=== PATIENT | male | born 1945 | race Caucasian/White ===

== ENCOUNTER 2016-08-04 18:37 | Emergency (ER) | payer MEDICARE, OTHER ==
--- NOTE | 2016-08-04 19:13 | ER Document Report ---
ED Medical Screen (RME) - General Stated Complaint: SHORTNESS OF BREATH,CONGESTION Mode of Arrival: Wheelchair Information source: Patient Notes: Patient presents to emergency department with cough and history of COPD. I greeted and performed a rapid initial assessment of this patient. Comprehensive ED assessment and evaluation of the patient, analysis of test results and completion of the medical decision making process will be conducted by additional ED providers. TRAVEL OUTSIDE OF THE [place] IN LAST 30 DAYS: No - Related Data Allergies/Adverse Reactions: No Known Allergies Allergy (Verified 05/01/16 18:06) Past Medical History - Past Medical History Cardiac Medical History: Reports: Hx Hypercholesterolemia, Hx Hypertension Pulmonary Medical History: Reports: Hx COPD Denies: Hx Tuberculosis Endocrine Medical History: Reports: Hx Diabetes Mellitus Type 2 GI Medical History: Reports: Hx Gastroesophageal Reflux Disease Psychiatric Medical History: Reports: Hx Depression Past Surgical History: Reports: Hx Orthopedic Surgery - RLE, right carpal tunnel , Hx Tonsillectomy - Immunizations Hx Diphtheria, Pertussis, Tetanus Vaccination: Yes - 2010 Physical Exam - Vital signs Vitals: Temp Pulse Resp BP Pulse Ox 97.8 F 85 17 154/98 H 99 08/04/16 18:49 08/04/16 18:49 08/04/16 18:49 08/04/16 18:49 08/04/16 18:49 Course - Vital Signs Vital signs: Temp Pulse Resp BP Pulse Ox 97.8 F 85 17 154/98 H 99 08/04/16 18:49 08/04/16 18:49 08/04/16 18:49 08/04/16 18:49 08/04/16 18:49
[2016-08-04 20:42] LABS: ABSOLUTE EOSINOPHILS # (AUTO) 0.1 10^3/uL (0.0-0.6); ABSOLUTE LYMPHOCYTES (AUTO) 1.7 10^3/uL (0.5-4.7); ABSOLUTE MONOCYTES (AUTO) 0.8 10^3/uL (0.1-1.4); ABSOLUTE NEUT (AUTO) 5.9 10^3/uL (1.7-8.2); BASOPHILS % (AUTO) 0.5 % (0-2); HEMATOCRIT 47.5 % (37.9-51.0); HEMOGLOBIN 15.4 g/dL (13.5-17.0); HGB HCT DIFFERENCE -1.3; LYMPHOCYTES % (AUTO) 20.4 % (13-45); MEAN CORPUSCULAR HEMOGLOBIN 24.1 pg (27.0-33.4); MEAN CORPUSCULAR HGB CONC 32.5 g/dL (32.0-36.0); MEAN CORPUSCULAR VOLUME 74 fl (80-97); RED BLOOD COUNT 6.41 10^6/uL (4.35-5.55); RED CELL DISTRIBUTION WIDTH 16.9 % (11.5-14.0); SEGMENTED NEUTROPHILS % (AUTO) 69.1 % (42-78); WHITE BLOOD COUNT 8.6 10^3/uL (4.0-10.5)
[2016-08-04 20:59] LABS: ALANINE AMINOTRANSFERASE 33 U/L (21-72); ALBUMIN 4.3 g/dL (3.5-5.0); ALKALINE PHOSPHATASE 99 U/L (38-126); ANION GAP 14 (5-19); ASPARTATE AMINO TRANSFERASE 29 U/L (17-59); BILIRUBIN,TOTAL 0.8 mg/dL (0.2-1.3); BLOOD UREA NITROGEN 13 mg/dL (7-20); CALCIUM 9.6 mg/dL (8.4-10.2); CARBON DIOXIDE 24 mmol/L (22-30); CHLORIDE 99 mmol/L (98-107); CREATININE RESULT 1.08 mg/dL (0.52-1.25); GLUCOSE 115 mg/dL (75-110); POTASSIUM 4.1 mmol/L (3.6-5.0); SODIUM 136.6 mmol/L (137-145); TOTAL PROTEIN 7.3 g/dL (6.3-8.2)
--- NOTE | 2016-08-04 21:57 | ER Document Report ---
ED Respiratory Problem - General Chief Complaint: Cough Stated Complaint: SHORTNESS OF BREATH,CONGESTION Mode of Arrival: Wheelchair Information source: Patient TRAVEL OUTSIDE OF THE [place] IN LAST 30 DAYS: No - HPI Patient complains to provider of: Short of breath Onset: Other - 3 DAYS Duration: Continuous Quality of pain: Other - CHEST SORENESS W/ COUGH Severity: Moderate Context: Hx CHF, Hx COPD Short of Breath: Moderate Chest pain/discomfort: Center - SORENESS, ONLY W/ COUGH Cough: Productive Sputum amount: Moderate Sputum color: White Sputum consistency: Frothy At home treatment: denies: Bronchodilators, Inhaled steroids, Oral steroids Associated symptoms: Cough, Sore Throat, Other - SOMETIMES GAGS WITH FORCEFUL COUGH. denies: Bloody cough, Chest pain/discomfort, Fever Similar symptoms previously: Yes - NOT RECENT Recently seen / treated by doctor: No - Related Data Allergies/Adverse Reactions: No Known Allergies Allergy (Verified 08/04/16 19:14) Past Medical History - General Information source: Patient - Social History Smoking Status: Current Every Day Smoker Cigarette use (# per day): Yes - 1 pk/d Chew tobacco use (# tins/day): No Smoking Education Provided: Yes - 1 MINUTE Frequency of alcohol use: Occasional Drug Abuse: None Lives with: Alone Family History: Reviewed & Not Pertinent Patient has suicidal ideation: No Patient has homicidal ideation: No - Past Medical History Cardiac Medical History: Reports: Hx Hypercholesterolemia, Hx Hypertension Pulmonary Medical History: Reports: Hx COPD Denies: Hx Tuberculosis Endocrine Medical History: Reports: Hx Diabetes Mellitus Type 2 Renal/ Medical History: Reports: None. Denies: Hx Peritoneal Dialysis Malignancy Medical History: Reports None GI Medical History: Reports: Hx Gastroesophageal Reflux Disease Musculoskeltal Medical History: Reports None Psychiatric Medical History: Reports: Hx Depression Past Surgical History: Reports: Hx Orthopedic Surgery - RLE, right carpal tunnel , Hx Tonsillectomy - Immunizations Hx Diphtheria, Pertussis, Tetanus Vaccination: Yes - 2010 Hx Pneumococcal Vaccination: 07/23/12 Review of Systems - Review of Systems Constitutional: No symptoms reported. denies: Chills, Fever EENT: No symptoms reported Cardiovascular: No symptoms reported Respiratory: See HPI Gastrointestinal: No symptoms reported Musculoskeletal: No symptoms reported Skin: No symptoms reported Neurological/Psychological: No symptoms reported Physical Exam - Vital signs Vitals: Temp Pulse Resp BP Pulse Ox 97.8 F 85 17 154/98 H 99 08/04/16 18:49 08/04/16 18:49 08/04/16 18:49 08/04/16 18:49 08/04/16 18:49 Interpretation: Hypertensive. No: Tachycardic, Hypoxic, Tachypneic, Febrile - General General appearance: Appears well, Alert In distress: None - HEENT Head: Normocephalic Eyes: Normal Conjunctiva: Normal Ears: Normal Nasal: Normal Mouth/Lips: Normal Mucous membranes: Normal Pharynx: Erythema - MID, SMOKER Neck: Normal - Respiratory Respiratory status: No respiratory distress Breath sounds: Normal, Productive cough. No: Rales, Rhonchi, Wheezing - Cardiovascular Rhythm: Regular Heart sounds: Normal auscultation Murmur: No - Abdominal Inspection: Normal - Back Back: Normal - Extremities General upper extremity: Normal inspection General lower extremity: Normal inspection - Neurological Neuro grossly intact: Yes Cognition: Normal Orientation: AAOx4 - Psychological Associated symptoms: Normal affect, Normal mood - Skin Skin Temperature: Warm Skin Moisture: Dry Skin Color: Normal Skin Turgor: Elastic Course - Vital Signs Vital signs: Temp Pulse Resp BP Pulse Ox 97.8 F 85 17 154/98 H 99 08/04/16 18:49 08/04/16 18:49 08/04/16 18:49 08/04/16 18:49 08/04/16 18:49 - Laboratory Result Diagrams: 08/04/16 19:30 08/04/16 19:30 Laboratory results interpreted by me: 08/04/16 08/04/16 19:30 19:30 RBC 6.41 H MCV 74 L MCH 24.1 L RDW 16.9 H Sodium 136.6 L Glucose 115 H Discharge - Discharge Clinical Impression: Tobacco abuse Acute bronchitis Qualifiers: Bronchitis organism: unspecified organism Qualified Code(s): J20.9 - Acute bronchitis, unspecified COPD (chronic obstructive pulmonary disease) Qualifiers: COPD type: COPD with acute exacerbation Qualified Code(s): J44.1 - Chronic obstructive pulmonary disease with (acute) exacerbation Condition: Stable Disposition: HOME, SELF-CARE Instructions: Bronchitis ([facility]), Tessalon Perles ([facility]), Stop Smoking ([facility]) Additional Instructions: DRINK PLENTY OF FLUIDS. TAKE TESSALON DIRECTED TO HELP SUPPRESS YOUR COUGH. TAKE MUCINEX OR OTHER EXPECTORANT TO HELP LOOSEN SECRETIONS. STOP SMOKING. FOLLOW UP WITH DR. NULL NEXT WEEK, CALL SUNDAY FOR APPOINTMENT. RETURN TO E.R. IF YOU GET WORSE. Prescriptions: Benzonatate [Tessalon Perles 100 mg Capsule] 100 mg PO Q8HP PRN #30 capsule PRN Reason: Forms: Smoking Cessation Education Referrals: NIDHI NULL MD [Primary Care Provider] - Follow up as needed
[2016-08-04] MEDS ORDERED: BENZONATATE 100 MG CAPSULE PO ONE (22:16)
[2016-08-05 00:05] VITALS: BP 162/87
== END 2016-08-05 00:04 | disposition home or self-care (01) ==
LOC: ER 18:37
DX: J20.9 Acute bronchitis, unspecified (principal); J44.1 Chronic obstructive pulmonary disease with (acute) exacerbation; R05 Cough; R06.02 Shortness of breath; R09.81 Nasal congestion; F17.210 Nicotine dependence, cigarettes, uncomplicated
CPT/HCPCS: 99285; 36415; 85025; 80053; 83880; 71020; A9270

== ENCOUNTER 2016-09-15 14:52 | Emergency (ER) | payer MEDICARE, OTHER ==
--- NOTE | 2016-09-15 15:02 | ER Document Report ---
ED Medical Screen (RME) - General Stated Complaint: FLANK PAIN Mode of Arrival: Ambulatory Information source: Patient Notes: Patient complains of right flank pain for the past week. Patient states pain has been constant and gradually getting worse. No nausea or vomiting. No urinary symptoms. No fever. hx: Hypertension, diabetes, low testosterone, dyslipidemia I have greeted and performed a rapid initial assessment of this patient. A comprehensive ED assessment and evaluation of the patient, analysis of test results and completion of the medical decision making process will be conducted by additional ED providers. TRAVEL OUTSIDE OF THE [place] IN LAST 30 DAYS: No - Related Data Allergies/Adverse Reactions: No Known Allergies Allergy (Verified 09/15/16 15:01) Past Medical History - Past Medical History Cardiac Medical History: Reports: Hx Hypercholesterolemia, Hx Hypertension Pulmonary Medical History: Reports: Hx COPD Denies: Hx Tuberculosis Endocrine Medical History: Reports: Hx Diabetes Mellitus Type 2 Renal/ Medical History: Denies: Hx Peritoneal Dialysis GI Medical History: Reports: Hx Gastroesophageal Reflux Disease Psychiatric Medical History: Reports: Hx Depression Past Surgical History: Reports: Hx Orthopedic Surgery - RLE, right carpal tunnel , Hx Tonsillectomy - Immunizations Hx Diphtheria, Pertussis, Tetanus Vaccination: Yes - 2010 Physical Exam - Vital signs Vitals: Temp Pulse Resp BP Pulse Ox 97.9 F 76 16 127/73 H 92 09/15/16 14:57 09/15/16 14:57 09/15/16 14:57 09/15/16 14:57 09/15/16 14:57 - Back Back: CVA tenderness - Right flank Course - Vital Signs Vital signs: Temp Pulse Resp BP Pulse Ox 97.9 F 76 16 127/73 H 92 09/15/16 14:57 09/15/16 14:57 09/15/16 14:57 09/15/16 14:57 09/15/16 14:57
[2016-09-15 15:23] LABS: ABSOLUTE BASOPHILS # (AUTO) 0.1 10^3/uL (0.0-0.2); ABSOLUTE EOSINOPHILS # (AUTO) 0.1 10^3/uL (0.0-0.6); ABSOLUTE LYMPHOCYTES (AUTO) 2.6 10^3/uL (0.5-4.7); ABSOLUTE MONOCYTES (AUTO) 0.7 10^3/uL (0.1-1.4); ABSOLUTE NEUT (AUTO) 5.5 10^3/uL (1.7-8.2); BASOPHILS % (AUTO) 0.8 % (0-2); EOSINOPHILS % (AUTO) 0.7 % (0-6); HEMATOCRIT 43.4 % (37.9-51.0); HEMOGLOBIN 14.8 g/dL (13.5-17.0); MEAN CORPUSCULAR HEMOGLOBIN 25.8 pg (27.0-33.4); MEAN CORPUSCULAR VOLUME 76 fl (80-97); MONOCYTES % (AUTO) 7.4 % (3-13); RED BLOOD COUNT 5.72 10^6/uL (4.35-5.55); RED CELL DISTRIBUTION WIDTH 19.8 % (11.5-14.0); SEGMENTED NEUTROPHILS % (AUTO) 62.1 % (42-78); WHITE BLOOD COUNT 8.8 10^3/uL (4.0-10.5)
[2016-09-15 15:42] LABS: ALANINE AMINOTRANSFERASE 28 U/L (21-72); ALBUMIN 3.9 g/dL (3.5-5.0); ALKALINE PHOSPHATASE 68 U/L (38-126); ANION GAP 12 (5-19); ASPARTATE AMINO TRANSFERASE 23 U/L (17-59); BILIRUBIN,TOTAL 0.5 mg/dL (0.2-1.3); BLOOD UREA NITROGEN 8 mg/dL (7-20); CARBON DIOXIDE 25 mmol/L (22-30); CHLORIDE 98 mmol/L (98-107); CREATININE RESULT 1.08 mg/dL (0.52-1.25); GLUCOSE 144 mg/dL (75-110); LIPASE 96.9 U/L (23-300); POTASSIUM 3.9 mmol/L (3.6-5.0); SODIUM 134.7 mmol/L (137-145); TOTAL PROTEIN 6.7 g/dL (6.3-8.2)
[2016-09-15 15:55] LABS: APPEARANCE,URINE CLEAR; BILIRUBIN,URINE NEGATIVE (NEGATIVE); GLUCOSE, URINE 50 mg/dL (NEGATIVE)
[2016-09-15 15:56] LABS: KETONES,URINE NEGATIVE (NEGATIVE); LEUKOCYTE ESTERASE,URINE NEGATIVE (NEGATIVE); NITRITE,URINE NEGATIVE (NEGATIVE); PROTEIN,URINE NEGATIVE (NEGATIVE); URINE SPECIFIC GRAVITY 1.011; UROBILINOGEN,URINE NEGATIVE mg/dL (<2.0)
[2016-09-15 16:13] LABS: BACTERIA,URINE TRACE /HPF
--- NOTE | 2016-09-15 18:42 | ER Document Report ---
ED General - General Mode of Arrival: Ambulatory Information source: Patient TRAVEL OUTSIDE OF THE [place] IN LAST 30 DAYS: No - HPI Onset: Other - see HPI note Associated symptoms: denies: Diarrhea, Nausea, Vomiting <PATSY BLAKE - Last Filed: 09/15/16 19:39> <NOESAPNA ANN - Last Filed: 09/15/16 21:29> - General Chief Complaint: Flank Pain Stated Complaint: FLANK PAIN Notes: Patient is a 71 year old male presenting to the emergency department with complaints of right flank pain. Patient states he has discussed his pain with his urologist and states he has been drinking lots of fluids as he recommended. Patient states that he is having continued pain and he believes he has a kidney stone. Patient states he has been taking Aspirin for his pain. Patient has a history of chronic cough and chronic low back pain; patient's flank pain is new to the back pain. Patient denies any nausea, vomiting, diarrhea, or abdominal pain. Patient states these symptoms started at the end of last week. Patient has no known allergies. (PATSY BLAKE) - Related Data Allergies/Adverse Reactions: No Known Allergies Allergy (Verified 09/15/16 15:01) Past Medical History - General Information source: Patient - Social History Smoking Status: Current Every Day Smoker Chew tobacco use (# tins/day): No Frequency of alcohol use: Occasional Drug Abuse: None Family History: None Patient has suicidal ideation: No Patient has homicidal ideation: No - Past Medical History Cardiac Medical History: Reports: Hx Hypercholesterolemia, Hx Hypertension Pulmonary Medical History: Reports: Hx COPD Endocrine Medical History: Reports: Hx Diabetes Mellitus Type 2 GI Medical History: Reports: Hx Gastroesophageal Reflux Disease Psychiatric Medical History: Reports: Hx Depression Past Surgical History: Reports: Hx Orthopedic Surgery - RLE, right carpal tunnel , Hx Tonsillectomy - Immunizations Hx Diphtheria, Pertussis, Tetanus Vaccination: Yes - 2010 Hx Pneumococcal Vaccination: 07/23/12 <PATSY BLAKE - Last Filed: 09/15/16 19:39> Review of Systems - Review of Systems Constitutional: No symptoms reported EENT: No symptoms reported Cardiovascular: No symptoms reported Respiratory: No symptoms reported Gastrointestinal: No symptoms reported. denies: Abdominal pain, Diarrhea, Nausea, Vomiting Genitourinary: See HPI, Flank pain Male Genitourinary: No symptoms reported Musculoskeletal: See HPI, Back pain Skin: No symptoms reported Hematologic/Lymphatic: No symptoms reported Neurological/Psychological: No symptoms reported -: Yes All other systems reviewed and negative <PATSY BLAKE - Last Filed: 09/15/16 19:39> Physical Exam - Vital signs Interpretation: Normal - General General appearance: Appears well, Alert - HEENT Head: Normocephalic, Atraumatic Eyes: Normal Pupils: PERRL - Respiratory Respiratory status: No respiratory distress Chest status: Tender - Posterior and lateral right rib cage at the bottom Breath sounds: Normal Chest palpation: Normal - Cardiovascular Rhythm: Regular Heart sounds: Normal auscultation Murmur: No - Abdominal Inspection: Normal Distension: No distension Bowel sounds: Normal Tenderness: Nontender Organomegaly: No organomegaly - Back Back: Normal, Tender - Bottom of lower right rib cage posteriorly. No: CVA tenderness - Extremities General upper extremity: Normal inspection, Nontender, Normal color, Normal ROM , Normal temperature General lower extremity: Normal inspection, Nontender, Normal color, Normal ROM , Normal temperature, Normal weight bearing. No: Ann's sign - Neurological Neuro grossly intact: Yes Cognition: Normal Orientation: AAOx4 [place] Coma Scale Eye Opening: Spontaneous Cristobal Coma Scale Verbal: Oriented [place] Coma Scale Motor: Obeys Commands Cristobal Coma Scale Total: 15 Speech: Normal Motor strength normal: LUE, RUE, LLE, RLE Sensory: Normal - Psychological Associated symptoms: Normal affect, Normal mood - Skin Skin Temperature: Warm Skin Moisture: Dry Skin Color: Normal <SAPNA LIU - Last Filed: 09/15/16 21:29> - Vital signs Vitals: Temp Pulse Resp BP Pulse Ox 97.9 F 76 16 127/73 H 92 09/15/16 14:57 09/15/16 14:57 09/15/16 14:57 09/15/16 14:57 09/15/16 14:57 (PATSY BLAKE) (SAPNA LIU) Course - Laboratory Result Diagrams: 09/15/16 15:10 09/15/16 15:10 <PATSY BLAKE - Last Filed: 09/15/16 19:39> - Laboratory Result Diagrams: 09/15/16 15:10 09/15/16 15:10 - Diagnostic Test Radiology reviewed: Reports reviewed <SAPNA LIU - Last Filed: 09/15/16 21:29> - Re-evaluation Re-evalutation: 09/15/16 21:28 Patient with no acute findings on blood work or CT. Symptoms are reproducible. Patient feels well and would like to go home. He is currently eating a hamburger. Patient is to follow-up with his primary care doctor. No evidence for intra-abdominal pathology. Stable for discharge. Return if any worsening or concerning symptoms. Understands agrees with plan. Grateful for care. ( SAPNA LIU) - Vital Signs Vital signs: Temp Pulse Resp BP Pulse Ox 97.7 F 71 18 121/74 97 09/15/16 21:23 09/15/16 21:23 09/15/16 21:23 09/15/16 21:23 09/15/16 21:23 (PATSY BLAKE) (SAPNA LIU) - Laboratory Laboratory results interpreted by me: 09/15/16 09/15/16 09/15/16 15:10 15:10 15:10 RBC 5.72 H MCV 76 L MCH 25.8 L RDW 19.8 H Sodium 134.7 L Glucose 144 H Urine Glucose (UA) 50 H (PATSY BLAKE) (SAPNA LIU) Discharge <PATSY BLAKE - Last Filed: 09/15/16 19:39> <SAPNA LIU - Last Filed: 09/15/16 21:29> - Discharge Clinical Impression: Rib injury Condition: Stable Disposition: HOME, SELF-CARE Instructions: Rib Injuries and Fractures ([facility]) Prescriptions: Docusate Sodium [Colace 100 mg Capsule] 100 mg PO BID #60 capsule Oxycodone HCl/Acetaminophen [Percocet 5-325 mg Tablet] 1 - 2 tab PO Q4H PRN #15 tablet PRN Reason: Scribe Attestation: 09/15/16 21:29 I personally performed the services described in the documentation, reviewed and edited the documentation which was dictated to the scribe in my presence, and it accurately records my words and actions. (SAPNA LIU) Scribe Documentation - Scribe Written by Scribe:: Patsy Blake 09/15/16 19:48 acting as scribe for :: Noe <PATSY BLAKE - Last Filed: 09/15/16 19:39>
[2016-09-15] MEDS ORDERED: HYDROCODONE/ACETAMINOPHEN 5-325 MG 6 TAB/DSPK PO PRN (20:43)
[2016-09-15 21:24] VITALS: BP 121/74
== END 2016-09-15 21:24 | disposition home or self-care (01) ==
LOC: ER 14:52
DX: S29.9XXA Unspecified injury of thorax, initial encounter (principal); X58.XXXA Exposure to other specified factors, initial encounter; R10.9 Unspecified abdominal pain; I10 Essential (primary) hypertension; J44.9 Chronic obstructive pulmonary disease, unspecified; E11.9 Type 2 diabetes mellitus without complications; M54.9 Dorsalgia, unspecified; F17.200 Nicotine dependence, unspecified, uncomplicated
CPT/HCPCS: 99284; 36415; 83690; 85025; 80053; 81001; 71275; 74174; A9270

== ENCOUNTER 2016-09-23 09:39 | Emergency (ER) | payer MEDICARE, OTHER ==
--- NOTE | 2016-09-23 10:25 | ER Document Report ---
ED General - General Chief Complaint: Rib Pain Stated Complaint: RIB PAIN Mode of Arrival: Ambulatory Information source: Patient Notes: Patient reports having bronchitis 3 weeks ago but states his bronchitis symptoms are better. Patient does have a cough still but reports a history of COPD. Patient reports having right posterior rib and lateral side pain for the past 2 weeks. Patient was seen a week ago here for this complaint and had negative CT imaging studies done. Patient also reports seeing his urologist last week for this complaint. Patient currently denies any fever, nausea, vomiting, diarrhea, or urinary symptoms. Patient states that he thought the pain might be related to his kidneys but is uncertain. TRAVEL OUTSIDE OF THE [place] IN LAST 30 DAYS: No - HPI Onset: Other - 2 weeks Onset/Duration: Persistent Quality of pain: Achy Pain Level: 4 Associated symptoms: Nonproductive cough. denies: Chest pain, Productive cough , Diarrhea, Fever, Nausea, Vomiting, Shortness of breath Exacerbated by: Denies Relieved by: Denies Similar symptoms previously: No Recently seen / treated by doctor: Yes - Related Data Allergies/Adverse Reactions: No Known Allergies Allergy (Verified 09/15/16 15:01) Past Medical History - General Information source: Patient - Social History Smoking Status: Current Every Day Smoker Chew tobacco use (# tins/day): No Frequency of alcohol use: None Drug Abuse: None Occupation: none Lives with: Family Family History: None Patient has suicidal ideation: No Patient has homicidal ideation: No - Past Medical History Cardiac Medical History: Reports: Hx Hypercholesterolemia, Hx Hypertension Pulmonary Medical History: Reports: Hx COPD Denies: Hx Tuberculosis Endocrine Medical History: Reports: Hx Diabetes Mellitus Type 2 Renal/ Medical History: Denies: Hx Peritoneal Dialysis GI Medical History: Reports: Hx Gastroesophageal Reflux Disease Psychiatric Medical History: Reports: Hx Depression Past Surgical History: Reports: Hx Orthopedic Surgery - RLE, right carpal tunnel , Hx Tonsillectomy - Immunizations Hx Diphtheria, Pertussis, Tetanus Vaccination: Yes - 2010 Hx Pneumococcal Vaccination: 07/23/12 Review of Systems - Review of Systems Constitutional: No symptoms reported. denies: Fever, Recent illness EENT: No symptoms reported Cardiovascular: No symptoms reported. denies: Chest pain Respiratory: Cough. denies: Short of breath, Sputum Gastrointestinal: No symptoms reported. denies: Abdominal pain, Diarrhea, Nausea, Vomiting Genitourinary: Flank pain. denies: Dysuria, Hematuria Male Genitourinary: No symptoms reported Musculoskeletal: Back pain Skin: No symptoms reported Hematologic/Lymphatic: No symptoms reported Neurological/Psychological: No symptoms reported Physical Exam - Vital signs Vitals: Temp Pulse Resp BP Pulse Ox 98.3 F 80 18 134/84 H 97 09/23/16 09:44 09/23/16 09:44 09/23/16 09:44 09/23/16 09:44 09/23/16 09:44 - General General appearance: Appears well, Alert In distress: None Notes: Patient clinically sober - HEENT Head: Normocephalic, Atraumatic Eyes: Normal Nasal: Normal Mouth/Lips: Normal Mucous membranes: Normal Neck: Normal, Supple. No: Lymphadenopathy - Respiratory Respiratory status: No respiratory distress Chest status: Nontender Breath sounds: Nonproductive cough, Rhonchi - Right lower lobe Chest palpation: Normal - Cardiovascular Rhythm: Regular Heart sounds: S1 appreciated, S2 appreciated - Abdominal Inspection: Normal Distension: No distension Bowel sounds: Normal Tenderness: Tender - Mild right upper quadrant tenderness Organomegaly: No organomegaly - Back Back: Tender - Right posterior lower thoracic chest wall tenderness, CVA tenderness - Mild right. No: Vertebra tenderness - Extremities General upper extremity: Normal inspection, Normal strength General lower extremity: Normal inspection, Normal strength - Neurological Neuro grossly intact: Yes Cognition: Normal [place] Coma Scale Eye Opening: Spontaneous Cristobal Coma Scale Verbal: Oriented Cristobal Coma Scale Motor: Obeys Commands [place] Coma Scale Total: 15 - Psychological Associated symptoms: Normal affect, Normal mood - Skin Skin Temperature: Warm Skin Moisture: Dry Skin Color: Normal Course - Re-evaluation Re-evalutation: 09/23/16 10:[address] Grcae regarding patient presentation, agrees with plan for abdominal ultrasound imaging. 09/23/16 11:[address] Grace, recommends outpatient follow-up with surgeon agrees with discharge planning care. Discussed planning care with patient, discussed worsening signs or symptoms that patient should return immediately for. Patient advised not to drink alcohol while taking his pain medication. Patient presents with abdominal pain without signs of peritonitis or other life- threatening or serious etiology. Patient appears stable for discharge and has been instructed to return immediately if the symptoms worsen in any way. - Vital Signs Vital signs: Temp Pulse Resp BP Pulse Ox 98.3 F 80 18 134/84 H 97 09/23/16 09:44 09/23/16 09:44 09/23/16 09:44 09/23/16 09:44 09/23/16 09:44 - Laboratory Result Diagrams: 09/23/16 10:32 09/23/16 10:32 Laboratory results interpreted by me: 09/23/16 09/23/16 10:32 10:32 MCV 77 L MCH 25.5 L RDW 20.5 H Sodium 136.4 L Glucose 156 H Labs- Entire Visit 09/23/16 09/23/16 09/23/16 10:32 10:32 10:36 WBC 7.5 RBC 5.54 Hgb 14.1 Hct 42.6 MCV 77 L MCH 25.5 L MCHC 33.2 RDW 20.5 H Plt Count 208 Seg Neutrophils % 61.8 Lymphocytes % 27.2 Monocytes % 9.6 Eosinophils % 0.9 Basophils % 0.5 Absolute Neutrophils 4.6 Absolute Lymphocytes 2.0 Absolute Monocytes 0.7 Absolute Eosinophils 0.1 Absolute Basophils 0.0 Sodium 136.4 L Potassium 3.9 Chloride 99 Carbon Dioxide 25 Anion Gap 12 BUN 8 Creatinine 1.05 Est GFR ( Amer) > 60 Est GFR (Non-Af Amer) > 60 Glucose 156 H Calcium 9.3 Total Bilirubin 0.5 Direct Bilirubin 0.0 AST 24 ALT 24 Alkaline Phosphatase 60 Total Protein 6.9 Albumin 3.9 Lipase 68.7 Urine Color STRAW Urine Appearance CLEAR Urine pH 6.0 Ur Specific [place] 1.006 Urine Protein NEGATIVE Urine Glucose (UA) NEGATIVE Urine Ketones NEGATIVE Urine Blood NEGATIVE Urine Nitrite NEGATIVE Urine Bilirubin NEGATIVE Urine Urobilinogen NEGATIVE Ur Leukocyte Esterase NEGATIVE Urine WBC (Auto) 0 Urine Ascorbic Acid NEGATIVE Serum Alcohol 23 - Diagnostic Test Radiology reviewed: Reports reviewed - Reviewed patient's CT report from 2016 Discharge - Discharge Clinical Impression: Flank pain Cholelithiasis Qualifiers: Cholelithiasis location: gallbladder Cholecystitis presence: without cholecystitis Biliary obstruction: without biliary obstruction Qualified Code(s) : K80.20 - Calculus of gallbladder without cholecystitis without obstruction Condition: Stable Disposition: HOME, SELF-CARE Instructions: Oral Narcotic Medication ([facility]), Gallbladder Disease ([facility]), Flank Pain ([facility]) Additional Instructions: Return immediately for any new or worsening symptoms Followup with your primary care provider, call tomorrow to make a followup appointment You need to follow-up with a general surgeon for further management of your gallstones. Do not drink alcohol while you are taking your pain medication Do not drink alcohol and drive your automobile Prescriptions: Oxycodone HCl/Acetaminophen [Percocet 5-325 mg Tablet] 1 tab PO ASDIR PRN #15 tablet PRN Reason: Referrals: NIDHI NULL MD [Primary Care Provider] - Follow up as needed [facility] [Provider Group] - 09/25/16
[2016-09-23 10:59] LABS: ABSOLUTE EOSINOPHILS # (AUTO) 0.1 10^3/uL (0.0-0.6); ABSOLUTE MONOCYTES (AUTO) 0.7 10^3/uL (0.1-1.4); ABSOLUTE NEUT (AUTO) 4.6 10^3/uL (1.7-8.2); BASOPHILS % (AUTO) 0.5 % (0-2); EOSINOPHILS % (AUTO) 0.9 % (0-6); HEMATOCRIT 42.6 % (37.9-51.0); HEMOGLOBIN 14.1 g/dL (13.5-17.0); HGB HCT DIFFERENCE -0.3; LYMPHOCYTES % (AUTO) 27.2 % (13-45); MEAN CORPUSCULAR HEMOGLOBIN 25.5 pg (27.0-33.4); MEAN CORPUSCULAR HGB CONC 33.2 g/dL (32.0-36.0); MEAN CORPUSCULAR VOLUME 77 fl (80-97); MONOCYTES % (AUTO) 9.6 % (3-13); RED BLOOD COUNT 5.54 10^6/uL (4.35-5.55); RED CELL DISTRIBUTION WIDTH 20.5 % (11.5-14.0); SEGMENTED NEUTROPHILS % (AUTO) 61.8 % (42-78); WHITE BLOOD COUNT 7.5 10^3/uL (4.0-10.5)
[2016-09-23 11:03] LABS: APPEARANCE,URINE CLEAR; BILIRUBIN,URINE NEGATIVE (NEGATIVE); GLUCOSE, URINE NEGATIVE (NEGATIVE); KETONES,URINE NEGATIVE (NEGATIVE); LEUKOCYTE ESTERASE,URINE NEGATIVE (NEGATIVE); NITRITE,URINE NEGATIVE (NEGATIVE); PROTEIN,URINE NEGATIVE (NEGATIVE); URINE SPECIFIC GRAVITY 1.006; UROBILINOGEN,URINE NEGATIVE mg/dL (<2.0)
[2016-09-23 11:26] LABS: ALANINE AMINOTRANSFERASE 24 U/L (21-72); ALBUMIN 3.9 g/dL (3.5-5.0); ALCOHOL 23 mg/dL (NONE DETECTED); ALKALINE PHOSPHATASE 60 U/L (38-126); ANION GAP 12 (5-19); ASPARTATE AMINO TRANSFERASE 24 U/L (17-59); BILIRUBIN,TOTAL 0.5 mg/dL (0.2-1.3); BLOOD UREA NITROGEN 8 mg/dL (7-20); CALCIUM 9.3 mg/dL (8.4-10.2); CARBON DIOXIDE 25 mmol/L (22-30); CHLORIDE 99 mmol/L (98-107); CREATININE RESULT 1.05 mg/dL (0.52-1.25); GLUCOSE 156 mg/dL (75-110); LIPASE 68.7 U/L (23-300); POTASSIUM 3.9 mmol/L (3.6-5.0); SODIUM 136.4 mmol/L (137-145); TOTAL PROTEIN 6.9 g/dL (6.3-8.2)
[2016-09-23 12:24] VITALS: BP 131/74
== END 2016-09-23 12:10 | disposition home or self-care (01) ==
LOC: ER 09:39
DX: K80.20 Calculus of gallbladder without cholecystitis without obstruction (principal); R10.9 Unspecified abdominal pain; R07.81 Pleurodynia; R05 Cough; F17.210 Nicotine dependence, cigarettes, uncomplicated
CPT/HCPCS: 36415; 71020; 76705; 80053; 80307; 81001; 83690; 85025; 99284

== ENCOUNTER 2016-09-24 14:38 | Emergency (ER) | payer MEDICARE, OTHER ==
--- NOTE | 2016-09-24 14:51 | ER Document Report ---
ED Medical Screen (RME) - General Stated Complaint: STOMACH PAINS Time seen by provider: 14:47 Notes: Patient complains of severe right upper quadrant pain and right flank pain, and headache. Seen yesterday in emergency room, diagnosed with gallstones without evidence of cholecystitis. Denies nausea vomiting diarrhea. Denies fever I have greeted and performed a rapid initial assessment of this patient. A comprehensive ED assessment and evaluation of the patient, analysis of test results and completion of the medical decision making process will be conducted by additional ED providers. TRAVEL OUTSIDE OF THE [place] IN LAST 30 DAYS: No - Related Data Allergies/Adverse Reactions: No Known Allergies Allergy (Verified 09/24/16 14:48) Past Medical History - Past Medical History Cardiac Medical History: Reports: Hx Hypercholesterolemia, Hx Hypertension Pulmonary Medical History: Reports: Hx COPD Denies: Hx Tuberculosis Endocrine Medical History: Reports: Hx Diabetes Mellitus Type 2 Renal/ Medical History: Denies: Hx Peritoneal Dialysis GI Medical History: Reports: Hx Gastroesophageal Reflux Disease Psychiatric Medical History: Reports: Hx Depression Past Surgical History: Reports: Hx Orthopedic Surgery - RLE, right carpal tunnel , Hx Tonsillectomy - Immunizations Hx Diphtheria, Pertussis, Tetanus Vaccination: Yes - 2010 Physical Exam - Abdominal Inspection: Normal Bowel sounds: Normal Tenderness: Tender - pt tender RUQ
[2016-09-24 15:29] LABS: APPEARANCE,URINE CLEAR; BILIRUBIN,URINE NEGATIVE (NEGATIVE); GLUCOSE, URINE NEGATIVE (NEGATIVE); KETONES,URINE NEGATIVE (NEGATIVE); LEUKOCYTE ESTERASE,URINE NEGATIVE (NEGATIVE); NITRITE,URINE NEGATIVE (NEGATIVE); PROTEIN,URINE NEGATIVE (NEGATIVE); URINE SPECIFIC GRAVITY 1.003; UROBILINOGEN,URINE NEGATIVE mg/dL (<2.0)
[2016-09-24 17:23] LABS: ABSOLUTE BASOPHILS # (AUTO) 0.1 10^3/uL (0.0-0.2); ABSOLUTE EOSINOPHILS # (AUTO) 0.1 10^3/uL (0.0-0.6); ABSOLUTE LYMPHOCYTES (AUTO) 2.8 10^3/uL (0.5-4.7); ABSOLUTE MONOCYTES (AUTO) 1.1 10^3/uL (0.1-1.4); ABSOLUTE NEUT (AUTO) 5.5 10^3/uL (1.7-8.2); BASOPHILS % (AUTO) 0.7 % (0-2); EOSINOPHILS % (AUTO) 1.3 % (0-6); HEMATOCRIT 43.2 % (37.9-51.0); HEMOGLOBIN 14.5 g/dL (13.5-17.0); HGB HCT DIFFERENCE 0.3; LYMPHOCYTES % (AUTO) 29.3 % (13-45); MEAN CORPUSCULAR HEMOGLOBIN 25.7 pg (27.0-33.4); MEAN CORPUSCULAR HGB CONC 33.6 g/dL (32.0-36.0); MEAN CORPUSCULAR VOLUME 77 fl (80-97); MONOCYTES % (AUTO) 11.4 % (3-13); RED BLOOD COUNT 5.64 10^6/uL (4.35-5.55); RED CELL DISTRIBUTION WIDTH 19.9 % (11.5-14.0); SEGMENTED NEUTROPHILS % (AUTO) 57.3 % (42-78); WHITE BLOOD COUNT 9.7 10^3/uL (4.0-10.5)
[2016-09-24 17:33] LABS: ALANINE AMINOTRANSFERASE 29 U/L (21-72); ALCOHOL < 10 mg/dL (NONE DETECTED); ALKALINE PHOSPHATASE 68 U/L (38-126); ANION GAP 12 (5-19); ASPARTATE AMINO TRANSFERASE 28 U/L (17-59); BILIRUBIN,TOTAL 0.8 mg/dL (0.2-1.3); BLOOD UREA NITROGEN 7 mg/dL (7-20); CALCIUM 9.1 mg/dL (8.4-10.2); CARBON DIOXIDE 24 mmol/L (22-30); CHLORIDE 95 mmol/L (98-107); CREATININE RESULT 0.92 mg/dL (0.52-1.25); GLUCOSE 113 mg/dL (75-110); LIPASE 93.2 U/L (23-300); POTASSIUM 4.2 mmol/L (3.6-5.0); SODIUM 130.8 mmol/L (137-145); TOTAL PROTEIN 6.9 g/dL (6.3-8.2)
--- NOTE | 2016-09-24 17:37 | ER Document Report ---
ED General - General Chief Complaint: Abdominal Pain Stated Complaint: STOMACH PAINS Mode of Arrival: Ambulatory Information source: Patient Notes: This is a 71-year-old male with multiple medical problems who presents for evaluation of right upper abdominal pain radiating into his back. He has had this discomfort for the past few weeks and has been seen multiple times for the same. Of note he was seen here in the ER yesterday and had an ultrasound of his gallbladder which demonstrated cholelithiasis but no evidence of cholecystitis. He was prescribed Percocet for his pain which he is taking as prescribed one pill every 6 hours however he states that secondary to the pain he was unable to sleep last night. Of note is that no nausea or vomiting and he is tolerating po, however he has had a decreased appetite. No fevers or chills. His bowel movements have been normal and his last bowel movement was about 3 hours ago. He has been instructed to follow-up with his primary care physician tomorrow for a referral to a surgeon to discuss his gallbladder, however he states his pain is not being controlled until he returned to the ER. TRAVEL OUTSIDE OF THE [place] IN LAST 30 DAYS: No - Related Data Allergies/Adverse Reactions: No Known Allergies Allergy (Verified 09/24/16 14:48) Past Medical History - Social History Smoking Status: Current Every Day Smoker Chew tobacco use (# tins/day): No Frequency of alcohol use: Occasional Drug Abuse: None Family History: None Patient has suicidal ideation: No Patient has homicidal ideation: No - Past Medical History Cardiac Medical History: Reports: Hx Hypercholesterolemia, Hx Hypertension Pulmonary Medical History: Reports: Hx COPD Denies: Hx Tuberculosis Endocrine Medical History: Reports: Hx Diabetes Mellitus Type 2 Renal/ Medical History: Denies: Hx Peritoneal Dialysis GI Medical History: Reports: Hx Gastroesophageal Reflux Disease Psychiatric Medical History: Reports: Hx Depression Past Surgical History: Reports: Hx Orthopedic Surgery - RLE, right carpal tunnel , Hx Tonsillectomy - Immunizations Hx Diphtheria, Pertussis, Tetanus Vaccination: Yes - 2010 Hx Pneumococcal Vaccination: 07/23/12 Physical Exam - Vital signs Vitals: Temp Pulse Resp BP Pulse Ox 97.5 F 77 20 134/79 H 99 09/24/16 14:49 09/24/16 14:49 09/24/16 14:49 09/24/16 14:49 09/24/16 14:49 Course - Re-evaluation Re-evalutation: 09/24/16 18:59 Patient has remained comfortable and conversant throughout his ER stay. His labs are reassuring. His ultrasound is reviewed from yesterday which demonstrated cholelithiasis but no evidence of cholecystitis. Also his prior visit from September 15 as reviewed at which time he had a CT angiogram of his chest abdomen and pelvis which was unremarkable. At this point I do not feel that further in imaging is indicated. I suspect the patient has symptomatic cholelithiasis however he does not appear to have postprandial symptoms and has not had nausea or vomiting. He has a benign abdominal exam. He has been taking only one Percocet every 6-8 hours to control his pain. We discussed the fact that he can increase the dose of the pain medication as well as dietary modification. His plan is to follow up with his primary care physician tomorrow for a referral to a surgeon to discuss elective cholecystectomy. He is very comfortable with this plan as he feels comfortable at this time. We discussed strict return precautions to include severe pain, fever greater than 100.4, for persistent nausea and vomiting. All questions were answered. - Vital Signs Vital signs: Temp Pulse Resp BP Pulse Ox 97.5 F 77 20 134/79 H 99 09/24/16 14:49 09/24/16 14:49 09/24/16 14:49 09/24/16 14:49 09/24/16 14:49 - Laboratory Result Diagrams: 09/24/16 16:50 09/24/16 16:50 Laboratory results interpreted by me: 09/24/16 09/24/16 16:50 16:50 RBC 5.64 H MCV 77 L MCH 25.7 L RDW 19.9 H Sodium 130.8 L Chloride 95 L Glucose 113 H Discharge - Discharge Clinical Impression: Symptomatic cholelithiasis, Hyponatremia Condition: Stable Disposition: HOME, SELF-CARE Additional Instructions: ABDOMINAL PAIN: There are many causes of abdominal pain. Pain can mean a serious problem requiring surgery (such as appendicitis). It can also be an innocent problem that goes away on its own (such as a viral infection). Often, time must pass to determine the cause of pain. The physician does not feel that hospitalization is necessary, at present. Things may change within the next 24 hours. Call the doctor or come back for re- examination if any problems occur, such as: (1) Pain that becomes more severe, steady, or becomes concentrated in one specific area. Also, pain that is more severe with movement or coughing. (2) Vomiting that persists or becomes more frequent. (3) Blood in the vomitus, urine, or bowel movements. Blood in the stool may have a tarry or black appearance. (4) Shaking chills or fever greater than 100 degrees F. (5) The abdomen becomes more distended or swollen. (6) Bowel movements cease. (7) Failure to improve as expected. GALLBLADDER DISEASE: Your evaluation shows evidence of gallbladder disease. The gallbladder is a pouch under the liver which stores bile. Stones, infection, or irritation of the gallbladder cause attacks of pain. Certain foods -- fats in particular -- may provoke attacks. The usual treatment for gallbladder disease is surgical removal of the gallbladder -- called a cholecystectomy. You will be referred to a physician qualified to advise you on the best treatment for your problem. Hospitalization is not necessary. Take clear liquids only until you are painfree. After that, you should stay on a low-fat diet, with frequent SMALL meals. Call the doctor or return at once if you develop severe pain, repeated vomiting, fever, or jaundice (a yellow color in the skin and whites of the eyes) . LOW-FAT DIET: The physician has recommended a low-fat diet. This diet is often used for gallbladder or pancreas problems. Your meals should be high-carbohydrate (potato, apples, noodles, breads, vegetables). Eat fish or skinless chicken (boiled or baked rather than fried) for protein. Beans and peas are good sources of fat-free protein. Soups are usually very low-fat. Don't eat anything fried. Avoid red meats. Avoid most dairy products. Skim milk and non-fat yogurt are OK. Most popular cheeses are very high-fat. Don't add butter or sauces -- use lemon or pepper instead. If you like salads, use one of the new "non-fat" dressings. "Fast Food" is "fat food." There is virtually nothing from a typical fast- food restaurant that you can eat. Fish patties and chicken nuggets are almost always deep-fat fried. "Special Sauces" are mostly fat. TORADOL INJECTION: You have been given an injection of ketorolac tromethamine (Toradol). This is an excellent, safe drug for pain control. It also has potent antiinflammatory action. You should have significant pain relief within about one hour. Toradol is not addicting and is non-sedating. It does not interfere with driving or work. Call or return if you develop itching, hives, shortness of breath, or rash. ORAL NARCOTIC MEDICATION: You have been given a prescription for pain control. This medication is a narcotic. It's best taken with food, as nausea can result if taken on an empty stomach. Don't operate machinery or drive within six hours of taking this medication. Do not combine this medicine with alcohol, or with any medication which can cause sedation (such as cold tablets or sleeping pills) unless you get permission from the physician. Narcotics tend to cause constipation. If possible, drink plenty of fluids and eat a diet high in fiber and fruits. Please be aware that prescription narcotics also have the potential for abuse. People become addicted to these medications because of the general sense of wellbeing that they induce. This feeling along with a significant reduction in tension, anxiety, and aggression provides a stimulating seductive quality to these drugs. Once your pain is under control, we encourage you to discard your unused narcotics. FOLLOW-UP CARE: If you have been referred to a physician for follow-up care, call the physician s office for an appointment as you were instructed or within the next two days. If you experience worsening or a significant change in your symptoms, notify the physician immediately or return to the Emergency Department at any time for re-evaluation. Follow up with your physician tomorrow as already planned. Prescriptions: Oxycodone HCl/Acetaminophen [Percocet 5-325 mg Tablet] 1 - 2 tab PO Q4H PRN #20 tablet PRN Reason:
[2016-09-24] MEDS ORDERED: OXYCODONE-ACETAMINOPHEN 5-325 MG TABLET PO ONE (18:58)
[2016-09-24] MEDS ORDERED: KETOROLAC TROMETHAMINE 60 MG/2 ML SDV IM ONE (19:03)
[2016-09-24 19:27] VITALS: BP 111/66
== END 2016-09-24 19:27 | disposition home or self-care (01) ==
LOC: ER 14:38
DX: K80.20 Calculus of gallbladder without cholecystitis without obstruction (principal); E87.1 Hypo-osmolality and hyponatremia; R10.9 Unspecified abdominal pain; R10.11 Right upper quadrant pain; M54.9 Dorsalgia, unspecified; F17.210 Nicotine dependence, cigarettes, uncomplicated; R63.0 Anorexia
CPT/HCPCS: 99284; 96372; 36415; 80307; 83690; 85025; 80053; 81001; J1885; A9270

== ENCOUNTER 2016-09-25 20:48 | Emergency (ER) | payer MEDICARE, OTHER ==
--- NOTE | 2016-09-25 21:07 | ER Document Report ---
ED Medical Screen (RME) - General Stated Complaint: BLOOD PRESSURE ISSUE Time seen by provider: 21:06 Mode of Arrival: Ambulatory Information source: Patient Notes: 41-year-old hypertensive diabetic came into the emergency room because his blood sugar was registering 600 at home. He took extra insulin. He also was concerned about high blood pressure which is 129/77 at this time. An Accu-Chek that was performed at 2100 was 131 and he has been eating Tschetter and sour cream potato chips in triage. I have greeted and performed a rapid initial assessment of this patient. A comprehensive ED assessment, evaluation of the patient, analysis of test results , and completion of the medical decision making process will be conducted by additional ED providers. TRAVEL OUTSIDE OF THE [place] IN LAST 30 DAYS: No - Related Data Allergies/Adverse Reactions: No Known Allergies Allergy (Verified 09/25/16 21:06) Past Medical History - Past Medical History Cardiac Medical History: Reports: Hx Hypercholesterolemia, Hx Hypertension Pulmonary Medical History: Reports: Hx COPD Denies: Hx Tuberculosis Endocrine Medical History: Reports: Hx Diabetes Mellitus Type 2 Renal/ Medical History: Denies: Hx Peritoneal Dialysis GI Medical History: Reports: Hx Gastroesophageal Reflux Disease Psychiatric Medical History: Reports: Hx Depression Past Surgical History: Reports: Hx Orthopedic Surgery - RLE, right carpal tunnel , Hx Tonsillectomy - Immunizations Hx Diphtheria, Pertussis, Tetanus Vaccination: Yes - 2010 Physical Exam - Vital signs Vitals: Temp Pulse Resp BP Pulse Ox 97.7 F 88 20 129/77 H 94 09/25/16 20:57 09/25/16 20:57 09/25/16 20:57 09/25/16 20:57 09/25/16 20:57 Course - Vital Signs Vital signs: Temp Pulse Resp BP Pulse Ox 97.7 F 88 20 129/77 H 94 09/25/16 20:57 09/25/16 20:57 09/25/16 20:57 09/25/16 20:57 09/25/16 20:57
[2016-09-25 21:47] LABS: ABSOLUTE BASOPHILS # (AUTO) 0.1 10^3/uL (0.0-0.2); ABSOLUTE EOSINOPHILS # (AUTO) 0.1 10^3/uL (0.0-0.6); ABSOLUTE LYMPHOCYTES (AUTO) 2.7 10^3/uL (0.5-4.7); ABSOLUTE MONOCYTES (AUTO) 0.8 10^3/uL (0.1-1.4); ABSOLUTE NEUT (AUTO) 4.6 10^3/uL (1.7-8.2); APPEARANCE,URINE CLEAR; BASOPHILS % (AUTO) 0.8 % (0-2); BILIRUBIN,URINE NEGATIVE (NEGATIVE); GLUCOSE, URINE NEGATIVE (NEGATIVE); HEMOGLOBIN 13.9 g/dL (13.5-17.0); HGB HCT DIFFERENCE -0.3; KETONES,URINE NEGATIVE (NEGATIVE); LEUKOCYTE ESTERASE,URINE NEGATIVE (NEGATIVE); LYMPHOCYTES % (AUTO) 32.9 % (13-45); MEAN CORPUSCULAR HEMOGLOBIN 25.6 pg (27.0-33.4); MEAN CORPUSCULAR HGB CONC 33.2 g/dL (32.0-36.0); MEAN CORPUSCULAR VOLUME 77 fl (80-97); MONOCYTES % (AUTO) 9.8 % (3-13); NITRITE,URINE NEGATIVE (NEGATIVE); PROTEIN,URINE NEGATIVE (NEGATIVE); RED BLOOD COUNT 5.44 10^6/uL (4.35-5.55); RED CELL DISTRIBUTION WIDTH 19.9 % (11.5-14.0); SEGMENTED NEUTROPHILS % (AUTO) 55.5 % (42-78); URINE SPECIFIC GRAVITY 1.002; UROBILINOGEN,URINE NEGATIVE mg/dL (<2.0); WHITE BLOOD COUNT 8.3 10^3/uL (4.0-10.5)
[2016-09-25 22:11] LABS: ALANINE AMINOTRANSFERASE 29 U/L (21-72); ALBUMIN 4.1 g/dL (3.5-5.0); ALKALINE PHOSPHATASE 63 U/L (38-126); ANION GAP 13 (5-19); ASPARTATE AMINO TRANSFERASE 25 U/L (17-59); BILIRUBIN,TOTAL 0.6 mg/dL (0.2-1.3); BLOOD UREA NITROGEN 9 mg/dL (7-20); CALCIUM 8.9 mg/dL (8.4-10.2); CARBON DIOXIDE 27 mmol/L (22-30); CHLORIDE 90 mmol/L (98-107); CREATININE RESULT 1.01 mg/dL (0.52-1.25); GLUCOSE 98 mg/dL (75-110); LIPASE 49.4 U/L (23-300); POTASSIUM 3.5 mmol/L (3.6-5.0); SODIUM 129.9 mmol/L (137-145); TOTAL PROTEIN 6.8 g/dL (6.3-8.2)
[2016-09-26] MEDS ORDERED: TRAMADOL HCL 50 MG TABLET PO ONE (00:43)
--- NOTE | 2016-09-26 00:47 | ER Document Report ---
ED General - General Chief Complaint: High Blood Sugar Stated Complaint: BLOOD SUGAR PROBLEMS Mode of Arrival: Ambulatory Notes: Patient presents to the emergency department with high blood sugar concerns. Patient reports he checked his sugar with 2 different glucometers. The first blood glucose was 500 the other just said high. He reports he took his insulin at 1900 and checked the blood sugar afterwards. Patient reports he has a history of gallbladder issues. Reports he has pain in his right upper quad that radiated to his back. Pt reports they gave him percocet for the pain. He also received ultram for the pain, reports it worked better. He hasn't had any pain medication this evening. Patient reports he vomited one time after lunch today. He reports he ate fried shrimp. Patient denies fever or diarrhea. Patient reports he has an appointment with the surgeon on Sunday. Patient also reports that he followed up today with his primary care provider Dr. Null. TRAVEL OUTSIDE OF THE [place] IN LAST 30 DAYS: No - HPI Onset: This evening Onset/Duration: Sudden Quality of pain: Achy Severity: Severe Pain Level: 4 Associated symptoms: Vomiting - once after lunch Exacerbated by: Denies Relieved by: Denies Similar symptoms previously: Yes Recently seen / treated by doctor: Yes - Related Data Allergies/Adverse Reactions: No Known Allergies Allergy (Verified 09/25/16 21:06) Past Medical History - General Information source: Patient - Social History Smoking Status: Current Every Day Smoker Cigarette use (# per day): Yes Frequency of alcohol use: Occasional Drug Abuse: None Lives with: Alone Family History: None Patient has suicidal ideation: No Patient has homicidal ideation: No - Past Medical History Cardiac Medical History: Reports: Hx Hypercholesterolemia, Hx Hypertension Pulmonary Medical History: Reports: Hx COPD Denies: Hx Tuberculosis Endocrine Medical History: Reports: Hx Diabetes Mellitus Type 2 Renal/ Medical History: Denies: Hx Peritoneal Dialysis GI Medical History: Reports: Hx Gastroesophageal Reflux Disease Psychiatric Medical History: Reports: Hx Depression Past Surgical History: Reports: Hx Orthopedic Surgery - RLE, right carpal tunnel , Hx Tonsillectomy - Immunizations Hx Diphtheria, Pertussis, Tetanus Vaccination: Yes - 2010 Hx Pneumococcal Vaccination: 07/23/12 Review of Systems - Review of Systems Notes: Review HPI for review of systems., All other systems negative Physical Exam - Vital signs Vitals: Temp Pulse Resp BP Pulse Ox 97.7 F 88 20 129/77 H 94 09/25/16 20:57 09/25/16 20:57 09/25/16 20:57 09/25/16 20:57 09/25/16 20:57 - Notes Notes: PHYSICAL EXAMINATION: GENERAL: Well-appearing and in no acute distress nontoxic looking HEAD: Atraumatic, normocephalic. EYES: Pupils equal round extraocular movements intact, sclera anicteric, conjunctiva are normal. ENT: nares patent, Moist mucous membranes. NECK: Normal range of motion, supple without lymphadenopathy LUNGS: CTAB and equal. No wheezes rales or rhonchi. HEART: Regular rate and rhythm without murmurs ABDOMEN: Soft, reports slight tenderness to RUQ. No guarding, no rebound BACK: Denies pain to palpation EXTREMITIES: Normal range of motion, no pitting edema. No cyanosis. NEUROLOGICAL: Cranial nerves grossly intact. Normal sensory/motor PSYCH: Normal mood, normal affect. SKIN: Warm, Dry, normal turgor, no rashes or lesions noted Course - Re-evaluation Re-evalutation: 09/26/16 Patient has a home health nurse coming out to visit him tomorrow. He looks nontoxic he reports he is eating and drinking as normal. Patient also reports she has an appointment with the surgeon on Sunday. Patient was instructed to take his medications as prescribed return to the ED for concerns. - Vital Signs Vital signs: Temp Pulse Resp BP Pulse Ox 98.6 F 90 18 127/83 H 96 09/26/16 01:00 09/26/16 01:00 09/26/16 01:00 09/26/16 01:00 09/26/16 01:00 - Laboratory Result Diagrams: 09/25/16 21:25 09/25/16 21:25 Laboratory results interpreted by me: 09/25/16 09/25/16 21:25 21:25 MCV 77 L MCH 25.6 L RDW 19.9 H Sodium 129.9 L Potassium 3.5 L Chloride 90 L Discharge - Discharge Clinical Impression: blood sugar concerns, Elevated blood pressure reading Abdominal pain Qualifiers: Abdominal location: right upper quadrant Qualified Code(s): R10.11 - Right upper quadrant pain Condition: Stable Disposition: HOME, SELF-CARE Instructions: Low-Fat Diet ([facility]), Gallbladder Disease ([facility]) Additional Instructions: *You have been evaluated for abdominal pain, blood sugar concerns *Monitor your blood glucose *Take your pain medication as prescribed *Monitor your diet *Follow up with [facility] on Sunday as scheduled *Monitor your blood pressure. Your blood pressure was elevated today. This may be because you were anxious, in pain or because you need medication. It is important to follow up with your primary care provider for full evaluation. *Return to ED for worsening condition, changes, needs *Return to ED if not better in 24 hours Forms: Elevated Blood Pressure Referrals: NIDHI NULL MD [Primary Care Provider] - Follow up in 3-5 days
[2016-09-26 01:02] VITALS: BP 127/83
== END 2016-09-26 01:00 | disposition home or self-care (01) ==
LOC: ER 20:48
DX: E11.9 Type 2 diabetes mellitus without complications (principal); I10 Essential (primary) hypertension; R10.11 Right upper quadrant pain; R11.10 Vomiting, unspecified; F17.210 Nicotine dependence, cigarettes, uncomplicated; E78.00 Pure hypercholesterolemia, unspecified; J44.9 Chronic obstructive pulmonary disease, unspecified; K21.9 Gastro-esophageal reflux disease without esophagitis; Z79.4 Long term (current) use of insulin
CPT/HCPCS: 99283; 36415; 82962; 83690; 85025; 80053; 81001; A9270

== ENCOUNTER → 2016-09-28 | Outpatient (CLI) | payer MEDICARE, OTHER ==
[2016-09-28 19:57] LABS: ABSOLUTE EOSINOPHILS # (AUTO) 0.1 10^3/uL (0.0-0.6); ABSOLUTE LYMPHOCYTES (AUTO) 2.2 10^3/uL (0.5-4.7); ABSOLUTE MONOCYTES (AUTO) 0.6 10^3/uL (0.1-1.4); ABSOLUTE NEUT (AUTO) 3.6 10^3/uL (1.7-8.2); BASOPHILS % (AUTO) 0.6 % (0-2); EOSINOPHILS % (AUTO) 1.3 % (0-6); HEMATOCRIT 39.6 % (37.9-51.0); HEMOGLOBIN 13.1 g/dL (13.5-17.0); HGB HCT DIFFERENCE -0.3; LYMPHOCYTES % (AUTO) 33.8 % (13-45); MEAN CORPUSCULAR HEMOGLOBIN 25.8 pg (27.0-33.4); MEAN CORPUSCULAR HGB CONC 33.1 g/dL (32.0-36.0); MEAN CORPUSCULAR VOLUME 78 fl (80-97); MONOCYTES % (AUTO) 9.5 % (3-13); RED BLOOD COUNT 5.08 10^6/uL (4.35-5.55); RED CELL DISTRIBUTION WIDTH 20.5 % (11.5-14.0); SEGMENTED NEUTROPHILS % (AUTO) 54.8 % (42-78); WHITE BLOOD COUNT 6.5 10^3/uL (4.0-10.5)
[2016-09-30 07:41] LABS: HEPATITIS C VIRUS AB 0.1 s/co ratio (0.0-0.9)
[2016-10-01 15:36] LABS: PROSTATE SPECIFIC ANTIGEN 3.8 ng/mL (0.0-4.0); PSA % FREE 14.7 % (.); PSA FREE 0.56 ng/mL
== END ==
LOC: OD 17:51
PROVIDERS: ATTEND Urology
DX: E29.1 Testicular hypofunction (principal); N40.1 Benign prostatic hyperplasia with lower urinary tract symptoms; I10 Essential (primary) hypertension; E13.9 Other specified diabetes mellitus without complications; N41.1 Chronic prostatitis
CPT/HCPCS: 36415; 84154; 85025; 86803; 86804

== ENCOUNTER 2016-10-08 02:05 | Emergency (ER) | payer MEDICARE, OTHER ==
[2016-10-08 03:00] LABS: APPEARANCE,URINE CLEAR; BILIRUBIN,URINE NEGATIVE (NEGATIVE); GLUCOSE, URINE NEGATIVE (NEGATIVE); KETONES,URINE NEGATIVE (NEGATIVE); LEUKOCYTE ESTERASE,URINE NEGATIVE (NEGATIVE); NITRITE,URINE NEGATIVE (NEGATIVE); PROTEIN,URINE NEGATIVE (NEGATIVE); URINE SPECIFIC GRAVITY 1.005; UROBILINOGEN,URINE NEGATIVE mg/dL (<2.0)
--- NOTE | 2016-10-08 04:05 | ER Document Report ---
ED Neck/Back Problem - General Chief Complaint: Upper Abdominal Pain Stated Complaint: ABDOMINAL PAIN Time seen by provider: 03:45 Mode of Arrival: Ambulatory Information source: Patient Notes: 71-year-old male came to the emergency room because he has not slept in 2 days due to the right low back pain with sciatica and the persistent right upper quadrant abdominal pain. The pain that is bothering him the most tonight and the reason he states he came in was because of the back pain which is worse with movement. No nausea or vomiting. No fever. He states Dr. Saez that he saw for his cholelithiasis on would not give the Percocet 10 mg which is used to taking for pain. He wants to have another doctor. The patient states that neither of these pains are new or worse. TRAVEL OUTSIDE OF THE [place] IN LAST 30 DAYS: No - Related Data Allergies/Adverse Reactions: No Known Allergies Allergy (Verified 10/08/16 02:37) Past Medical History - General Information source: Patient - Social History Smoking Status: Current Every Day Smoker Chew tobacco use (# tins/day): No Frequency of alcohol use: Occasional Drug Abuse: None Lives with: Alone Family History: None Patient has suicidal ideation: No Patient has homicidal ideation: No - Past Medical History Cardiac Medical History: Reports: Hx Hypercholesterolemia, Hx Hypertension Pulmonary Medical History: Reports: Hx COPD Endocrine Medical History: Reports: Hx Diabetes Mellitus Type 2 Renal/ Medical History: Denies: Hx Peritoneal Dialysis GI Medical History: Reports: Hx Gastroesophageal Reflux Disease, Other - Cholelithiasis Psychiatric Medical History: Reports: Hx Depression Past Surgical History: Reports: Hx Orthopedic Surgery - RLE, right carpal tunnel , Hx Tonsillectomy - Immunizations Hx Diphtheria, Pertussis, Tetanus Vaccination: Yes - 2010 Hx Pneumococcal Vaccination: 07/23/12 Review of Systems - Review of Systems Constitutional: No symptoms reported EENT: No symptoms reported Cardiovascular: No symptoms reported Respiratory: No symptoms reported Gastrointestinal: See HPI Genitourinary: No symptoms reported Male Genitourinary: No symptoms reported Musculoskeletal: See HPI Skin: No symptoms reported Hematologic/Lymphatic: No symptoms reported Neurological/Psychological: No symptoms reported Physical Exam - Vital signs Vitals: Temp Pulse Resp BP Pulse Ox 98.7 F 88 16 90/61 L 96 10/08/16 02:33 10/08/16 02:33 10/08/16 02:33 10/08/16 02:33 10/08/16 02:33 Interpretation: Normal - General General appearance: Appears well, Alert In distress: None - HEENT Head: Normocephalic, Atraumatic Eyes: Normal Conjunctiva: Normal Pupils: PERRL Mouth/Lips: Normal Mucous membranes: Normal Neck: Supple. No: Lymphadenopathy - Respiratory Respiratory status: No respiratory distress Chest status: Nontender Breath sounds: Normal Chest palpation: Normal - Cardiovascular Rhythm: Regular Heart sounds: Normal auscultation Murmur: No - Abdominal Inspection: Normal Distension: No distension Bowel sounds: Normal Tenderness: Tender - minimal RUQ. No: Conley's sign Organomegaly: No organomegaly. No: Hepatomegaly, Splenomegaly - Back Back: Normal, Tender - right lumbar paraspinal muscles. No: CVA tenderness, Vertebra tenderness - Extremities General upper extremity: Normal inspection, Nontender, Normal color, Normal ROM , Normal temperature General lower extremity: Normal inspection, Nontender, Normal color, Normal ROM , Normal temperature, Normal weight bearing. No: Ann's sign - Neurological Neuro grossly intact: Yes Cognition: Normal Orientation: AAOx4 Cristobal Coma Scale Eye Opening: Spontaneous Cristobal Coma Scale Verbal: Oriented Sidman Coma Scale Motor: Obeys Commands Cristobal Coma Scale Total: 15 Speech: Normal Motor strength normal: LUE, RUE, LLE, RLE Sensory: Normal Knee - Reflex grade: 2 = Normal - yahir Ankle - Reflex grade: 2 = Normal - yahir - Psychological Associated symptoms: Normal affect, Normal mood - Skin Skin Temperature: Warm Skin Moisture: Dry Skin Color: Normal Skin irregularity: negative: Rash Course - Re-evaluation Re-evalutation: 10/08/16 05:29 Labs are normal I will send the patient home with a prescription for anti- inflammatories. He plans to follow up concerning the cholelithiasis when the outpatient surgery can be scheduled. The labs and physical exam did not indicate that there is any worsening of the cholelithiasis I believe and the patient stated that the pain has been persistent in the same without any increase in the pain. 10/08/16 05:32 - Vital Signs Vital signs: Temp Pulse Resp BP Pulse Ox 98.2 F 66 20 96/59 L 93 10/08/16 05:03 10/08/16 05:03 10/08/16 05:03 10/08/16 05:03 10/08/16 05:03 - Laboratory Result Diagrams: 10/08/16 04:39 10/08/16 04:39 Laboratory results interpreted by me: 10/08/16 10/08/16 04:39 04:39 MCV 77 L MCH 26.6 L RDW 19.5 H Sodium 136.4 L Glucose 130 H Discharge - Discharge Clinical Impression: Hx of cholelithiasis, Abdominal pain, RUQ Chronic back pain Qualifiers: Back pain location: low back pain Back pain laterality: right Sciatica presence : without sciatica Qualified Code(s): M54.5 - Low back pain; G89.29 - Other chronic pain Condition: Good Disposition: HOME, SELF-CARE Instructions: Abdominal Pain ([facility]), Low-Fat Diet ([facility]), Gallbladder Disease ( [facility]), Low Back Pain ([facility]), Acetaminophen, Anti-Inflammatory Medication ([facility]) Additional Instructions: return to er if worse warm compress to low back See the general surgeon for outpatient gallbladder surgery as planned Please complete the patient satisfaction survey if you get one, and return it.. If you do not receive a survey, then you can go to the [facility] website, [email or web address] and place your comments about your very good care. Thank you very much. It was a pleasure being your medical provider today. Prescriptions: Ibuprofen [Motrin 600 mg Tablet] 600 mg PO Q8HP PRN #20 tablet PRN Reason:
[2016-10-08 04:54] LABS: ABSOLUTE BASOPHILS # (AUTO) 0.1 10^3/uL (0.0-0.2); ABSOLUTE EOSINOPHILS # (AUTO) 0.1 10^3/uL (0.0-0.6); ABSOLUTE LYMPHOCYTES (AUTO) 2.6 10^3/uL (0.5-4.7); ABSOLUTE MONOCYTES (AUTO) 0.8 10^3/uL (0.1-1.4); EOSINOPHILS % (AUTO) 1.2 % (0-6); HEMATOCRIT 40.7 % (37.9-51.0); HGB HCT DIFFERENCE 1.3; LYMPHOCYTES % (AUTO) 30.2 % (13-45); MEAN CORPUSCULAR HEMOGLOBIN 26.6 pg (27.0-33.4); MEAN CORPUSCULAR HGB CONC 34.3 g/dL (32.0-36.0); MEAN CORPUSCULAR VOLUME 77 fl (80-97); MONOCYTES % (AUTO) 9.7 % (3-13); RED BLOOD COUNT 5.26 10^6/uL (4.35-5.55); RED CELL DISTRIBUTION WIDTH 19.5 % (11.5-14.0); SEGMENTED NEUTROPHILS % (AUTO) 57.9 % (42-78); WHITE BLOOD COUNT 8.6 10^3/uL (4.0-10.5)
[2016-10-08] MEDS ORDERED: ACETAMINOPHEN 325 MG TABLET PO ONE (05:17)
[2016-10-08] MEDS ORDERED: IBUPROFEN 600 MG TABLET PO ONE (05:17)
[2016-10-08 05:19] LABS: ALANINE AMINOTRANSFERASE 24 U/L (21-72); ALBUMIN 3.9 g/dL (3.5-5.0); ALKALINE PHOSPHATASE 66 U/L (38-126); ANION GAP 9 (5-19); ASPARTATE AMINO TRANSFERASE 42 U/L (17-59); BILIRUBIN,TOTAL 0.6 mg/dL (0.2-1.3); BLOOD UREA NITROGEN 8 mg/dL (7-20); CALCIUM 9.4 mg/dL (8.4-10.2); CARBON DIOXIDE 28 mmol/L (22-30); CHLORIDE 99 mmol/L (98-107); CREATININE RESULT 0.98 mg/dL (0.52-1.25); GLUCOSE 130 mg/dL (75-110); LIPASE 96.3 U/L (23-300); SODIUM 136.4 mmol/L (137-145)
[2016-10-08 08:17] VITALS: BP 142/82
== END 2016-10-08 06:41 | disposition home or self-care (01) ==
LOC: ER 02:05
DX: G89.29 Other chronic pain (principal); M54.5 Low back pain; K80.20 Calculus of gallbladder without cholecystitis without obstruction; R10.11 Right upper quadrant pain; F17.200 Nicotine dependence, unspecified, uncomplicated; I10 Essential (primary) hypertension; J44.9 Chronic obstructive pulmonary disease, unspecified; E11.9 Type 2 diabetes mellitus without complications
CPT/HCPCS: 99284; 36415; 83690; 85025; 80053; 81001; A9270 ×2

== ENCOUNTER 2016-10-30 12:22 | Inpatient (IN) | payer MEDICARE, OTHER ==
--- NOTE | 2016-10-30 13:17 | ER Document Report ---
ED Medical Screen (RME) - General Chief Complaint: Dizziness Stated Complaint: UNSTEADY ON FEET Notes: Patient says he began to feel faint and lightheaded and trouble walking this morning. He was sitting outside on his porch this into the radio when the symptoms began. He did not lose consciousness. He's never had this happen before. Has never had a stroke or mini stroke. Denies any chest pains or current abdominal pains. Patient has scheduled a cholecystectomy for Sunday. Not aware of any fever. PMH: To have surgery for his gallbladder removal in 2 days. Carpal tunnel syndrome. Hypertension. Diabetes on insulin and pills. High cholesterol. Chronic back pain, out of meds. TRAVEL OUTSIDE OF THE [place] IN LAST 30 DAYS: No - Related Data Allergies/Adverse Reactions: No Known Allergies Allergy (Verified 10/30/16 12:50) Past Medical History - Past Medical History Cardiac Medical History: Reports: Hx Hypercholesterolemia, Hx Hypertension Pulmonary Medical History: Reports: Hx COPD Denies: Hx Tuberculosis Endocrine Medical History: Reports: Hx Diabetes Mellitus Type 2 Renal/ Medical History: Denies: Hx Peritoneal Dialysis GI Medical History: Reports: Hx Gastroesophageal Reflux Disease Psychiatric Medical History: Reports: Hx Depression Past Surgical History: Reports: Hx Orthopedic Surgery - RLE, right carpal tunnel , Hx Tonsillectomy - Immunizations Hx Diphtheria, Pertussis, Tetanus Vaccination: Yes - 2010 Physical Exam - Vital signs Vitals: Temp Pulse Resp BP Pulse Ox 98.7 F 116 H 20 122/82 95 10/30/16 13:10 10/30/16 13:10 10/30/16 13:10 10/30/16 13:10 10/30/16 13:10 Course - Vital Signs Vital signs: Temp Pulse Resp BP Pulse Ox 98.7 F 116 H 20 122/82 95 10/30/16 13:10 10/30/16 13:10 10/30/16 13:10 10/30/16 13:10 10/30/16 13:10
[2016-10-30 13:52] LABS: ABSOLUTE LYMPHOCYTES (AUTO) 1.7 10^3/uL (0.5-4.7); ABSOLUTE MONOCYTES (AUTO) 0.8 10^3/uL (0.1-1.4); ABSOLUTE NEUT (AUTO) 7.1 10^3/uL (1.7-8.2); BASOPHILS % (AUTO) 0.4 % (0-2); EOSINOPHILS % (AUTO) 0.3 % (0-6); HEMOGLOBIN 15.3 g/dL (13.5-17.0); HGB HCT DIFFERENCE 1.9; LYMPHOCYTES % (AUTO) 17.5 % (13-45); MEAN CORPUSCULAR HEMOGLOBIN 27.4 pg (27.0-33.4); MEAN CORPUSCULAR HGB CONC 34.7 g/dL (32.0-36.0); MEAN CORPUSCULAR VOLUME 79 fl (80-97); MONOCYTES % (AUTO) 8.5 % (3-13); RED BLOOD COUNT 5.58 10^6/uL (4.35-5.55); RED CELL DISTRIBUTION WIDTH 17.1 % (11.5-14.0); SEGMENTED NEUTROPHILS % (AUTO) 73.3 % (42-78); WHITE BLOOD COUNT 9.6 10^3/uL (4.0-10.5)
[2016-10-30 14:18] LABS: ALANINE AMINOTRANSFERASE 41 U/L (21-72); ALBUMIN 4.7 g/dL (3.5-5.0); ALKALINE PHOSPHATASE 85 U/L (38-126); ANION GAP 17 (5-19); ASPARTATE AMINO TRANSFERASE 46 U/L (17-59); BILIRUBIN,DIRECT 0.3 mg/dL (0.0-0.4); BILIRUBIN,TOTAL 1.2 mg/dL (0.2-1.3); BLOOD UREA NITROGEN 7 mg/dL (7-20); CALCIUM 9.2 mg/dL (8.4-10.2); CARBON DIOXIDE 22 mmol/L (22-30); CHLORIDE 91 mmol/L (98-107); CREATININE RESULT 1.01 mg/dL (0.52-1.25); GLUCOSE 117 mg/dL (75-110); POTASSIUM 3.4 mmol/L (3.6-5.0); SODIUM 130.3 mmol/L (137-145); TOTAL PROTEIN 7.6 g/dL (6.3-8.2)
[2016-10-30 14:27] LABS: CREATINE KINASE MB 8.05 ng/mL (<4.55)
[2016-10-30 14:40] LABS: TROPONIN I < 0.012 ng/mL
[2016-10-30] MEDS ORDERED: NORMAL SALINE 1000 ML 500 ML IV ONE (16:43)
[2016-10-30 17:44] LABS: APPEARANCE,URINE CLEAR; BILIRUBIN,URINE NEGATIVE (NEGATIVE); GLUCOSE, URINE NEGATIVE (NEGATIVE); KETONES,URINE NEGATIVE (NEGATIVE); LEUKOCYTE ESTERASE,URINE NEGATIVE (NEGATIVE); NITRITE,URINE NEGATIVE (NEGATIVE); PROTEIN,URINE NEGATIVE (NEGATIVE); URINE SPECIFIC GRAVITY 1.002; UROBILINOGEN,URINE NEGATIVE mg/dL (<2.0)
--- NOTE | 2016-10-30 17:54 | ER Document Report ---
ED Dizziness/Weakness - General Mode of Arrival: Ambulatory Information source: Patient TRAVEL OUTSIDE OF THE [place] IN LAST 30 DAYS: No - HPI Patient complains to provider of: Dizziness Associated symptoms: Other - See above <LEO MISHRA - Last Filed: 10/30/16 19:31> <SAPNA LIU - Last Filed: 10/30/16 23:45> - General Chief Complaint: Dizziness Stated Complaint: Dizzy Notes: Patient is a 71 year old male, with a past history of alcohol abuse, who presents to the emergency department complaining of dizziness. Patient reports that he is feeling better now but that his "head does not feel normal" and that he is confused. Patient also reports falling this morning and doesn't know how. Patient does not recall what medications he takes. Patient denies urinary issues , breathing difficulties, and cough. (LEO MISHRA) - Related Data Allergies/Adverse Reactions: No Known Allergies Allergy (Verified 10/30/16 12:50) Home Medications: Current Home Medications Albiglutide [Tanzeum] 30 mg SQ PERERA@1000 10/30/16 [History] Doxazosin Mesylate [Cardura 4 mg Tablet] 4 mg PO DAILY 10/30/16 [History] Esomeprazole Magnesium [Nexium] 40 mg PO DAILY 10/30/16 [History] Ezetimibe [Zetia 10 mg Tablet] 10 mg PO DAILY 10/30/16 [History] Famotidine [Pepcid 20 mg Tablet] 20 mg PO DAILY 10/30/16 [History] Fluticasone/Salmeterol [Advair 250-50 Diskus 14 Dose/Diskus] 1 puff IH BID 10/30 [History] Furosemide [Lasix] 20 mg PO DAILY 10/30/16 [History] Gabapentin Enacarbil [Horizant] 600 mg PO Q12 10/30/16 [History] Hydrocodone/Acetaminophen [Hydrocodon-Acetaminophen 5-325] 1 each PO Q4HP PRN [History] Ibuprofen [Motrin 600 mg Tablet] 600 mg PO Q8HP PRN 10/30/16 [History] Insulin Detemir [Levemir Flextouch] 70 units SQ Q12 10/30/16 [History] Insulin Lispro [Humalog Insulin (Lispro) 100 unit/mL] 0 unit SQ .PERSLIDINGSCALE 10/30/16 [History] Lidocaine [Lidoderm 5% (700 mg) Transdermal Patch] 1 patch TOP DAILY 10/30/16 [ History] Loratadine [Claritin 10 mg Tablet] 10 mg PO DAILY 10/30/16 [History] Naproxen 200 mg PO Q12 10/30/16 [History] Ondansetron [Zofran Odt 4 mg Tablet] 4 mg PO Q6HP PRN 10/30/16 [History] Oxycodone HCl/Acetaminophen [Oxycodone-Acetaminophen 5-325] 1 each PO Q6HP PRN 10/30/16 [History] Pioglitazone HCl [Actos] 45 mg PO DAILY 10/30/16 [History] Pregabalin [Lyrica 100 mg Capsule] 100 mg PO Q8 10/30/16 [History] Promethazine HCl [Phenergan 25 mg Tablet] 12.5 mg PO Q6HP PRN 10/30/16 [History] Risperidone [Risperdal] 2 mg PO QHS 10/30/16 [History] Sitagliptin Phos/Metformin HCl [Janumet 50-1,000 mg Tablet] 1 each PO BID [History] Telmisartan/Hydrochlorothiazid [Micardis HCT 40-12.5 mg Tablet] 1 each PO DAILY 10/30/16 [History] Trazodone HCl [Desyrel] 150 mg PO QHS 10/30/16 [History] Past Medical History - General Information source: Patient - Social History Smoking Status: Unknown if Ever Smoked Chew tobacco use (# tins/day): No Frequency of alcohol use: None Drug Abuse: None Family History: None, Reviewed & Not Pertinent Patient has suicidal ideation: No Patient has homicidal ideation: No - Past Medical History Cardiac Medical History: Reports: Hx Hypercholesterolemia, Hx Hypertension Pulmonary Medical History: Reports: Hx COPD Endocrine Medical History: Reports: Hx Diabetes Mellitus Type 2 GI Medical History: Reports: Hx Gastroesophageal Reflux Disease Psychiatric Medical History: Reports: Hx Depression Past Surgical History: Reports: Hx Orthopedic Surgery - RLE, right carpal tunnel , Hx Tonsillectomy - Immunizations Hx Diphtheria, Pertussis, Tetanus Vaccination: Yes - 2010 Hx Pneumococcal Vaccination: 07/23/12 <LEO MISHRA - Last Filed: 10/30/16 19:31> Review of Systems - Review of Systems Constitutional: No symptoms reported EENT: No symptoms reported Cardiovascular: See HPI, Dizziness Respiratory: denies: Cough, Other - Breathing difficulties Gastrointestinal: No symptoms reported Genitourinary: denies: Other - Urinary problems Male Genitourinary: No symptoms reported Musculoskeletal: No symptoms reported Skin: No symptoms reported Hematologic/Lymphatic: No symptoms reported Neurological/Psychological: See HPI, Confusion -: Yes All other systems reviewed and negative <LEO MISHRA - Last Filed: 10/30/16 19:31> Physical Exam - Vital signs Interpretation: Normal - General General appearance: Appears well, Alert - HEENT Head: Normocephalic, Atraumatic Eyes: Normal Pupils: PERRL - Respiratory Respiratory status: No respiratory distress Chest status: Nontender Breath sounds: Normal Chest palpation: Normal - Cardiovascular Rhythm: Regular Heart sounds: Normal auscultation Murmur: No - Abdominal Inspection: Normal Distension: No distension Bowel sounds: Normal Tenderness: Nontender Organomegaly: No organomegaly - Back Back: Normal, Nontender - Extremities General upper extremity: Normal inspection, Nontender, Normal color, Normal ROM , Normal temperature General lower extremity: Normal inspection, Nontender, Normal color, Normal ROM , Normal temperature, Normal weight bearing. No: Ann's sign - Neurological Neuro grossly intact: Yes Cognition: Confused Orientation: AAOx4 Cristobal Coma Scale Eye Opening: Spontaneous Cristobal Coma Scale Verbal: Oriented [place] Coma Scale Motor: Obeys Commands [place] Coma Scale Total: 15 Speech: Normal Motor strength normal: LUE, RUE, LLE, RLE Sensory: Normal - Psychological Associated symptoms: Normal affect, Normal mood - Skin Skin Temperature: Warm Skin Moisture: Dry Skin Color: Normal <SAPNA LIU - Last Filed: 10/30/16 23:45> - Vital signs Vitals: Temp Pulse Resp BP Pulse Ox 98.7 F 116 H 20 122/82 95 10/30/16 13:10 10/30/16 13:10 10/30/16 13:10 10/30/16 13:10 10/30/16 13:10 Course - Laboratory Result Diagrams: 10/30/16 13:20 10/30/16 13:20 - Consults Dr. Gutierres Time consulted: 17:58 - Recommends admitting patient for observation <LEO MISHRA - Last Filed: 10/30/16 19:31> - Laboratory Result Diagrams: 10/30/16 13:20 10/30/16 13:20 - Diagnostic Test Radiology reviewed: Reports reviewed <SAPNA LIU - Last Filed: 10/30/16 23:45> - Re-evaluation Re-evalutation: 10/30/16 Patient is a 71-year-old male who presents with confusion. Patient has some hyponatremia. Patient is a history of alcohol abuse. Patient is confused. No evidence for infection. Vitals are stable. Patient has been discussed with Dr. Gutierres. Due to confusion and electrolyte abnormality, I do not think that the patient is safe at home. We will keep him for evaluation of his electrolyte abnormality and encephalopathy at this time. Stable at time of admission. Patient agrees with this plan. (SAPNA LIU) - Vital Signs Vital signs: Temp Pulse Resp BP Pulse Ox 98.4 F 89 16 146/80 H 100 10/30/16 23:08 10/30/16 23:08 10/30/16 23:08 10/30/16 23:08 10/30/16 23:08 - Laboratory Laboratory results interpreted by me: 10/30/16 10/30/16 10/30/16 13:20 13:20 13:20 RBC 5.58 H MCV 79 L RDW 17.1 H Sodium 130.3 L Potassium 3.4 L Chloride 91 L Glucose 117 H Creatine Kinase CK-MB (CK-2) 8.05 H 10/30/16 13:20 RBC MCV RDW Sodium Potassium Chloride Glucose Creatine Kinase 517 H CK-MB (CK-2) Discharge <LEO MISHRA - Last Filed: 10/30/16 19:31> - Discharge Admitting Provider: Bhavik Unit Admitted: Telemetry <SAPNA LIU - Last Filed: 10/30/16 23:45> - Discharge Clinical Impression: Encephalopathy due to metabolic factor or toxin, Hyponatremia Fall at home Qualifiers: Encounter type: initial encounter Qualified Code(s): W19.XXXA - Unspecified fall, initial encounter; Y92.099 - Unspecified place in other non-institutional residence as the place of occurrence of the external cause Condition: Stable Disposition: ADMITTED OBSERVATION Scribe Attestation: 10/30/16 23:45 I personally performed the services described in the documentation, reviewed and edited the documentation which was dictated to the scribe in my presence, and it accurately records my words and actions. (SAPNA LIU) Scribe Documentation - Scribe Written by Scribe:: anderson Zapata, 10/30/16, 193 acting as scribe for :: Kely <LEO MISHRA - Last Filed: 10/30/16 19:31>
[2016-10-30 18:19] LABS: CREATINE KINASE 517 U/L (55-170)
[2016-10-30 18:28] LABS: ALCOHOL < 10 mg/dL (NONE DETECTED)
--- NOTE | 2016-10-30 18:58 | EKG REPORT ---
SEVERITY:- ABNORMAL ECG - SINUS TACHYCARDIA LEFT ANTERIOR FASCICULAR BLOCK BORDERLINE R WAVE PROGRESSION, ANTERIOR LEADS : Confirmed by: Abdi Goode MD 30-Oct-2016 18:57:05
[2016-10-30] MEDS ORDERED: DEXTROSE 50%-WATER SYRINGE 12.5 GM/25 ML DOSE IV PRN (23:01)
[2016-10-30] MEDS ORDERED: INSULIN LISPRO 100 UNIT/ML 3 ML VIAL SUBCUT PRN (23:01)
[2016-10-30] MEDS ORDERED: GLUCAGON,HUMAN RECOMB 1 MG INJ IM PRN (23:01)
[2016-10-30] MEDS ORDERED: DEXTROSE 50%-WATER SYRINGE 25 GM/50 ML DOSE IV PRN (23:01)
[2016-10-30] MEDS ORDERED: DEXTROSE 40% GEL 15 GM TUBE PO PRN (23:01)
[2016-10-30] MEDS ORDERED: DEXTROSE 40% GEL 15 GM TUBE X 2 PO PRN (23:01)
[2016-10-30] MEDS ORDERED: HYDROCODONE/ACETAMINOPHEN 5-325 MG TABLET PO PRN (23:32)
[2016-10-30] MEDS ORDERED: IBUPROFEN 600 MG TABLET PO PRN (23:32)
[2016-10-30] MEDS ORDERED: OXYCODONE-ACETAMINOPHEN 5-325 MG TABLET PO PRN (23:41)
[2016-10-30] MEDS ORDERED: ONDANSETRON 4 MG TAB.RAPDIS PO PRN (23:41)
[2016-10-30] MEDS ORDERED: PROMETHAZINE HCL 25 MG TABLET PO PRN (23:43)
[2016-10-31] MEDS: NORMAL SALINE 1000 ML 1,000 ML IV PRN ×3 (00:20→21:04)
[2016-10-31] MEDS ORDERED: RISPERIDONE 1 MG TABLET PO ONE (01:00)
[2016-10-31] MEDS ORDERED: TRAZODONE HCL 50 MG TABLET PO ONE (01:00)
[2016-10-31] MEDS ORDERED: GABAPENTIN 300 MG CAPSULE PO ONE (01:00)
[2016-10-31 05:03] LABS: ABSOLUTE BASOPHILS # (AUTO) 0.1 10^3/uL (0.0-0.2); ABSOLUTE EOSINOPHILS # (AUTO) 0.1 10^3/uL (0.0-0.6); ABSOLUTE LYMPHOCYTES (AUTO) 1.8 10^3/uL (0.5-4.7); ABSOLUTE MONOCYTES (AUTO) 0.7 10^3/uL (0.1-1.4); ABSOLUTE NEUT (AUTO) 4.7 10^3/uL (1.7-8.2); BASOPHILS % (AUTO) 0.9 % (0-2); HEMATOCRIT 38.1 % (37.9-51.0); HGB HCT DIFFERENCE 0.9; LYMPHOCYTES % (AUTO) 24.4 % (13-45); MEAN CORPUSCULAR VOLUME 79 fl (80-97); MONOCYTES % (AUTO) 9.8 % (3-13); RED CELL DISTRIBUTION WIDTH 16.7 % (11.5-14.0); SEGMENTED NEUTROPHILS % (AUTO) 62.9 % (42-78); WHITE BLOOD COUNT 7.5 10^3/uL (4.0-10.5)
[2016-10-31] MEDS: LANSOPRAZOLE 30 MG TAB.RAP.DR PO SCH (06:22)
[2016-10-31] MEDS: PREGABALIN 100 MG CAPSULE PO SCH ×3 (06:22→21:03)
[2016-10-31] MEDS: SITAGLIPTIN PHOSPHATE 50 MG TABLET PO SCH (08:08)
[2016-10-31] MEDS: METFORMIN HCL 500 MG TABLET PO SCH (08:08)
[2016-10-31] MEDS: ENOXAPARIN SODIUM INJ 40 MG/0.4 ML DISP.SYRIN SUBCUT SCH (08:08)
--- NOTE | 2016-10-31 08:24 | PDOC H&P ---
History of Present Illness Admission Date/PCP: 10/30/16 23:02 NIDHI NULL History of Present Illness: DONA JULIO JR is a 71 year old male known to my practice who presented to ED with complaint of not feeling right, s/p fall at home earlier in the day, confusion and dizziness. He denied any chest pain, difficulty with breathing, fever or chills. No abdominal pain, nausea or vomiting. He denied any urinary voiding problem. Patient denied any recent alcohol ingestion despite his history of alcohol abuse. His initial evaluation in the ED was remarkable for electrolyte derangement with elevated CK and CK-MB but normal troponin I level. Patient could not provide further information into the circumstance of his fall at home or if he was on the follow for a long time. Past Medical History Cardiac Medical History: Reports: Hyperlipidema, Hypertension Pulmonary Medical History: Reports: Chronic Obstructive Pulmonary Disease (COPD) Denies: Tuberculosis Endocrine Medical History: Reports: Diabetes Mellitus Type 2 GI Medical History: Reports: Gastroesophageal Reflux Disease Psychiatric Medical History: Reports: Depression Past Surgical History Past Surgical History: Reports: Orthopedic Surgery - RLE, right carpal tunnel, Tonsillectomy Social History Smoking Status: Current Every Day Smoker Cigarettes Packs Per Day: 1 Frequency of Alcohol Use: Heavy Hx Recreational Drug Use: No Drugs: None Hx Prescription Drug Abuse: No - Advance Directive Resuscitation Status: Full Code Family History Family History: None, Reviewed & Not Pertinent Parental Family History Reviewed: Yes Children Family History Reviewed: Yes Sibling(s) Family History Reviewed.: Yes Medication/Allergy Home Medications: Albiglutide [Tanzeum] 30 mg SQ PERERA@1000 10/30/16 Doxazosin Mesylate [Cardura 4 mg Tablet] 4 mg PO DAILY 10/30/16 Esomeprazole Magnesium [Nexium] 40 mg PO DAILY 10/30/16 Ezetimibe [Zetia 10 mg Tablet] 10 mg PO DAILY 10/30/16 Famotidine [Pepcid 20 mg Tablet] 20 mg PO DAILY 10/30/16 Fluticasone/Salmeterol [Advair 250-50 Diskus 14 Dose/Diskus] 1 puff IH BID 10/30 Furosemide [Lasix] 20 mg PO DAILY 10/30/16 Gabapentin Enacarbil [Horizant] 600 mg PO Q12 10/30/16 Hydrocodone/Acetaminophen [Hydrocodon-Acetaminophen 5-325] 1 each PO Q4HP PRN Ibuprofen [Motrin 600 mg Tablet] 600 mg PO Q8HP PRN 10/30/16 Insulin Detemir [Levemir Flextouch] 70 units SQ Q12 10/30/16 Insulin Lispro [Humalog Insulin (Lispro) 100 unit/mL] 0 unit SQ .PERSLIDINGSCALE 10/30/16 Lidocaine [Lidoderm 5% (700 mg) Transdermal Patch] 1 patch TOP DAILY 10/30/16 Loratadine [Claritin 10 mg Tablet] 10 mg PO DAILY 10/30/16 Naproxen 200 mg PO Q12 10/30/16 Ondansetron [Zofran Odt 4 mg Tablet] 4 mg PO Q6HP PRN 10/30/16 Oxycodone HCl/Acetaminophen [Oxycodone-Acetaminophen 5-325] 1 each PO Q6HP PRN 10/30/16 Pioglitazone HCl [Actos] 45 mg PO DAILY 10/30/16 Pregabalin [Lyrica 100 mg Capsule] 100 mg PO Q8 10/30/16 Promethazine HCl [Phenergan 25 mg Tablet] 12.5 mg PO Q6HP PRN 10/30/16 Risperidone [Risperdal] 2 mg PO QHS 10/30/16 Sitagliptin Phos/Metformin HCl [Janumet 50-1,000 mg Tablet] 1 each PO BID Telmisartan/Hydrochlorothiazid [Micardis HCT 40-12.5 mg Tablet] 1 each PO DAILY 10/30/16 Trazodone HCl [Desyrel] 150 mg PO QHS 10/30/16 Allergies/Adverse Reactions: No Known Allergies Allergy (Verified 10/30/16 12:50) Review of Systems Constitutional: ABSENT: chills, fever(s), headache(s), weight gain, weight loss Eyes: ABSENT: visual disturbances Ears: ABSENT: hearing changes Nose, Mouth, and Throat: ABSENT: as per HPI, headache(s), mouth pain, sore throat, vertigo, other Cardiovascular: ABSENT: chest pain, dyspnea on exertion, edema, orthropnea, palpitations Respiratory: ABSENT: cough, hemoptysis Gastrointestinal: ABSENT: abdominal pain, constipation, diarrhea, hematemesis, hematochezia, nausea, vomiting Genitourinary: ABSENT: dysuria, hematuria Musculoskeletal: PRESENT: back pain, deformity - related to arthritis involvement in multiple joints Integumentary: ABSENT: rash, wounds Neurological: PRESENT: confusion, dizziness, memory loss, numbness - in toes and fingers, long standing, tingling - in toes and fingers, long standing, weakness - generalized Psychiatric: PRESENT: anxiety Endocrine: ABSENT: cold intolerance, heat intolerance, polydipsia, polyuria Hematologic/Lymphatic: ABSENT: easy bleeding, easy bruising, lymphadenopathy Allergic/Immunologic: PRESENT: seasonal rhinorrhea Physical Exam Vital Signs: Temp Pulse Resp BP Pulse Ox 98.4 F 90 20 118/59 L 100 10/31/16 03:06 10/31/16 03:06 10/31/16 03:06 10/31/16 03:06 10/31/16 03:06 Intake & Output 10/30/16 10/31/16 11/01/16 06:59 06:59 06:59 Intake Total 1480 Output Total 350 Balance 1130 Weight 83.6 kg General appearance: PRESENT: no acute distress, cooperative, obese Head exam: PRESENT: atraumatic, normocephalic Eye exam: PRESENT: conjunctiva pink, EOMI, PERRLA. ABSENT: scleral icterus Ear exam: PRESENT: normal external ear exam Mouth exam: PRESENT: moist, tongue midline Throat exam: ABSENT: post pharyngeal erythema, tonsillar erythema, tonsillar exudate, tonsillogmegaly, other Neck exam: PRESENT: full ROM. ABSENT: carotid bruit, JVD, lymphadenopathy, thyromegaly Respiratory exam: PRESENT: clear to auscultation yahir Cardiovascular exam: PRESENT: RRR. ABSENT: diastolic murmur, rubs, systolic murmur Pulses: PRESENT: normal dorsalis pedis pul, +2 pedal pulses bilateral Vascular exam: PRESENT: normal capillary refill GI/Abdominal exam: PRESENT: distended. ABSENT: ascites, diminished bowel sounds , firm, guarding, hernia, hyperactive bowel sounds, hypoactive bowel sounds, mass, Conley's sign, normal bowel sounds, organolmegaly, rebound, rigid, soft, tenderness, other Rectal exam: PRESENT: deferred Gentrourinary exam: ABSENT: ecchymosis, erythema, lacerations, lesions, scrotal swelling, testicular tenderness, urethral discharge, indwelling catheter, other Extremities exam: PRESENT: full ROM Musculoskeletal exam: PRESENT: ambulatory, deformity - related to multiple joints involvment with arthritis Neurological exam: PRESENT: alert, awake, oriented to person, oriented to place , oriented to time, oriented to situation, CN II-XII grossly intact. ABSENT: motor sensory deficit Psychiatric exam: PRESENT: appropriate affect, normal mood. ABSENT: homicidal ideation, suicidal ideation Skin exam: PRESENT: dry, intact, warm. ABSENT: cyanosis, rash Results Laboratory Results: 10/31/16 04:40 10/31/16 04:40 WBC 7.5 RBC 4.80 Hgb 13.0 L D Hct 38.1 MCV 79 L MCH 27.0 MCHC 34.0 RDW 16.7 H Plt Count 149 L Seg Neutrophils % 62.9 Lymphocytes % 24.4 Monocytes % 9.8 Eosinophils % 2.0 Basophils % 0.9 Absolute Neutrophils 4.7 Absolute Lymphocytes 1.8 Absolute Monocytes 0.7 Absolute Eosinophils 0.1 Absolute Basophils 0.1 Impressions: Chest X-Ray 10/30/16 00:00 IMPRESSION: NO ACUTE RADIOGRAPHIC FINDING IN THE CHEST. Head CT 10/30/16 13:15 IMPRESSION: MILD CHRONIC CHANGES OF ATROPHY AND MICROVASCULAR ISCHEMIA. LEFT MAXILLARY SINUS DISEASE. OTHERWISE NO ACUTE PROCESS. Assessment & Plan - Diagnosis (1) Rhabdomyolysis Qualifiers: Encounter type: initial encounter Is this a current diagnosis for this admission?: YesPlan: See admitting physician orders. (2) Fall at home Qualifiers: Encounter type: initial encounter Qualified Code(s): W19.XXXA - Unspecified fall, initial encounter; Y92.099 - Unspecified place in other non- institutional residence as the place of occurrence of the external cause Is this a current diagnosis for this admission?: YesPlan: See admitting physician orders. (3) Hypopotassemia Is this a current diagnosis for this admission?: YesPlan: See admitting physician orders. (4) Diabetes mellitus type 2 in obese Is this a current diagnosis for this admission?: YesPlan: See admitting physician orders. (5) Encephalopathy due to metabolic factor or toxin Is this a current diagnosis for this admission?: YesPlan: See admitting physician orders. (6) Hyponatremia Is this a current diagnosis for this admission?: YesPlan: See admitting physician orders. (7) Anxiety Is this a current diagnosis for this admission?: YesPlan: See admitting physician orders. (8) HTN (hypertension) Qualifiers: Hypertension type: essential hypertension Is this a current diagnosis for this admission?: YesPlan: See admitting physician orders. (9) HLD (hyperlipidemia) Qualifiers: Hyperlipidemia type: pure hypercholesterolemia Qualified Code(s): E78.00 - Pure hypercholesterolemia, unspecified; E78.0 - Pure hypercholesterolemia Plan: See admitting physician orders. (10) Chronic pain syndrome Is this a current diagnosis for this admission?: YesPlan: See admitting physician orders. 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
[2016-10-31] MEDS ORDERED: GABAPENTIN 300 MG CAPSULE PO SCH (10:00)
[2016-10-31] MEDS ORDERED: FUROSEMIDE 20 MG TABLET PO SCH (10:00)
[2016-10-31] MEDS ORDERED: FAMOTIDINE 20 MG TABLET PO SCH (10:00)
[2016-10-31] MEDS ORDERED: LORATADINE 10 MG TABLET PO SCH (10:00)
[2016-10-31 11:07] LABS: ANION GAP 14 (5-19); BLOOD UREA NITROGEN 10 mg/dL (7-20); CALCIUM 8.5 mg/dL (8.4-10.2); CARBON DIOXIDE 24 mmol/L (22-30); CHLORIDE 97 mmol/L (98-107); CREATINE KINASE 424 U/L (55-170); CREATININE RESULT 1.22 mg/dL (0.52-1.25); GLUCOSE 123 mg/dL (75-110); SODIUM 134.6 mmol/L (137-145)
[2016-10-31] MEDS: PIOGLITAZONE HCL 15 MG TABLET PO SCH (11:07)
[2016-10-31] MEDS: LOSARTAN POTASSIUM 50 MG TABLET PO SCH (11:09)
[2016-10-31] MEDS: EZETIMIBE 10 MG TABLET PO SCH (11:10)
[2016-10-31] MEDS: HYDROCHLOROTHIAZIDE 12.5 MG CAPSULE PO SCH (11:10)
[2016-10-31] MEDS: FLUTICASONE/SALMETEROL DISKUS 250-50 MCG/DOSE IH SCH ×2 (11:11→18:17)
[2016-10-31] MEDS: DOXAZOSIN MESYLATE 4 MG TABLET PO SCH (11:11)
[2016-10-31] MEDS: INSULIN DETEMIR 100 UNIT/ML 3 ML PEN SUBCUT SCH ×2 (11:12→21:11)
[2016-10-31] MEDS: LIDOCAINE 5% (700 MG) TRANSDERMAL ADH..PATCH TP SCH (11:12)
[2016-10-31 11:16] LABS: CREATINE KINASE MB 6.72 ng/mL (<4.55); TROPONIN I < 0.012 ng/mL
[2016-10-31 17:20] LABS: CREATINE KINASE MB 6.77 ng/mL (<4.55)
[2016-10-31 17:24] LABS: TROPONIN I < 0.012 ng/mL
[2016-10-31] MEDS: RISPERIDONE 1 MG TABLET PO SCH (21:03)
[2016-10-31] MEDS: NICOTINE 21 MG/24 HR PATCH.TD24 TD SCH (21:03)
[2016-10-31] MEDS: TRAZODONE HCL 50 MG TABLET PO SCH (21:03)
[2016-10-31 23:28] LABS: CREATINE KINASE MB 5.83 ng/mL (<4.55)
[2016-10-31 23:30] LABS: TROPONIN I < 0.012 ng/mL
[2016-11-01] MEDS: NORMAL SALINE 1000 ML 1,000 ML IV PRN (01:37)
[2016-11-01 05:09] LABS: PARTIAL THROMBOPLASTIN TIME 29.1 SEC (23.5-35.8); PROTHROMBIN TIME 13.9 SEC (11.4-15.4)
[2016-11-01] MEDS: PREGABALIN 100 MG CAPSULE PO SCH ×3 (05:20→21:01)
[2016-11-01] MEDS: LANSOPRAZOLE 30 MG TAB.RAP.DR PO SCH (05:20)
[2016-11-01 05:24] LABS: ANION GAP 12 (5-19); BLOOD UREA NITROGEN 13 mg/dL (7-20); CALCIUM 8.2 mg/dL (8.4-10.2); CARBON DIOXIDE 23 mmol/L (22-30); CHLORIDE 105 mmol/L (98-107); CREATININE RESULT 1.15 mg/dL (0.52-1.25); GLUCOSE 90 mg/dL (75-110); POTASSIUM 4.3 mmol/L (3.6-5.0); SODIUM 139.9 mmol/L (137-145)
[2016-11-01] MEDS: ENOXAPARIN SODIUM INJ 40 MG/0.4 ML DISP.SYRIN SUBCUT SCH (09:29)
[2016-11-01] MEDS: DOXAZOSIN MESYLATE 4 MG TABLET PO SCH (09:32)
[2016-11-01] MEDS: LIDOCAINE 5% (700 MG) TRANSDERMAL ADH..PATCH TP SCH (09:32)
[2016-11-01] MEDS: SITAGLIPTIN PHOSPHATE 50 MG TABLET PO SCH (09:33)
[2016-11-01] MEDS: EZETIMIBE 10 MG TABLET PO SCH (09:33)
[2016-11-01] MEDS: LOSARTAN POTASSIUM 50 MG TABLET PO SCH (09:33)
[2016-11-01] MEDS: PIOGLITAZONE HCL 15 MG TABLET PO SCH (09:33)
[2016-11-01] MEDS: HYDROCHLOROTHIAZIDE 12.5 MG CAPSULE PO SCH (09:34)
[2016-11-01] MEDS: METFORMIN HCL 500 MG TABLET PO SCH (09:34)
[2016-11-01] MEDS: FLUTICASONE/SALMETEROL DISKUS 250-50 MCG/DOSE IH SCH ×2 (09:34→17:01)
[2016-11-01] MEDS: INSULIN DETEMIR 100 UNIT/ML 3 ML PEN SUBCUT SCH ×2 (09:35→21:01)
--- NOTE | 2016-11-01 18:31 | PDOC PROGRESS REPORT ---
Subjective Progress Note for:: 11/01/16 Subjective:: Patient is demonstrating resistance to care with regard to IV hydration for management of his rhabdomyolysis. He denied any chest pain or difficulty with breathing. No fever or chills but reported feeling cold and shriving earlier today. No nausea, vomiting or abdominal pain. Physical Exam Vital Signs: Temp Pulse Resp BP Pulse Ox 98.2 F 75 17 148/87 H 99 11/01/16 15:33 11/01/16 16:25 11/01/16 15:33 11/01/16 16:25 11/01/16 15:33 Intake & Output 10/31/16 11/01/16 11/02/16 06:59 06:59 06:59 Intake Total 3940 1050 Output Total 1825 Balance 2115 1050 General appearance: PRESENT: no acute distress, cooperative, obese Head exam: PRESENT: atraumatic, normocephalic Eye exam: PRESENT: conjunctiva pink, EOMI, PERRLA. ABSENT: scleral icterus Mouth exam: PRESENT: moist Respiratory exam: PRESENT: clear to auscultation yahir, decreased breath sounds - at bases Cardiovascular exam: PRESENT: RRR. ABSENT: diastolic murmur, rubs, systolic murmur GI/Abdominal exam: PRESENT: normal bowel sounds, soft, other - protuberant Musculoskeletal exam: PRESENT: deformity - related to arthritis involemen of multiple joints, flat footed Neurological exam: PRESENT: alert, awake, CN II-XII grossly intact, normal gait , other - no asterixis Psychiatric exam: PRESENT: appropriate affect, normal mood. ABSENT: homicidal ideation, suicidal ideation Skin exam: PRESENT: dry, intact, warm. ABSENT: cyanosis, rash Results Laboratory Results: 11/01/16 04:34 10/31/16 11/01/16 20:12 04:34 Sodium 139.9 Potassium 4.3 Chloride 105 Carbon Dioxide 23 Anion Gap 12 BUN 13 Creatinine 1.15 Est GFR ( Amer) > 60 Est GFR (Non-Af Amer) > 60 Glucose 90 Calcium 8.2 L Stool Occult Blood NEGATIVE 10/31/16 10/31/16 10/31/16 10:27 10:27 16:36 Creatine Kinase 424 H 412 H CK-MB (CK-2) 6.72 H Troponin I < 0.012 10/31/16 10/31/16 10/31/16 16:36 22:50 22:50 Creatine Kinase 372 H CK-MB (CK-2) 6.77 H 5.83 H Troponin I < 0.012 < 0.012 Impressions: Chest X-Ray 10/30/16 00:00 IMPRESSION: NO ACUTE RADIOGRAPHIC FINDING IN THE CHEST. Head CT 10/30/16 13:15 IMPRESSION: MILD CHRONIC CHANGES OF ATROPHY AND MICROVASCULAR ISCHEMIA. LEFT MAXILLARY SINUS DISEASE. OTHERWISE NO ACUTE PROCESS. Assessment & Plan - Diagnosis (1) Rhabdomyolysis Qualifiers: Encounter type: initial encounter Is this a current diagnosis for this admission?: YesPlan: See attending physician orders. His total CK is trending downward. We will continue IV hydration and use forced diuresis if necessary. (2) Fall at home Qualifiers: Encounter type: initial encounter Qualified Code(s): W19.XXXA - Unspecified fall, initial encounter; Y92.099 - Unspecified place in other non- institutional residence as the place of occurrence of the external cause Is this a current diagnosis for this admission?: YesPlan: See attending physician orders. (3) Hypopotassemia Is this a current diagnosis for this admission?: YesPlan: Resolved. See attending physician orders. (4) Diabetes mellitus type 2 in obese Is this a current diagnosis for this admission?: YesPlan: See attending physician orders. (5) Encephalopathy due to metabolic factor or toxin Is this a current diagnosis for this admission?: YesPlan: Improving altered mental status. See attending physician orders. (6) Hyponatremia Is this a current diagnosis for this admission?: YesPlan: Resolved. See attending physician orders. (7) Anxiety Is this a current diagnosis for this admission?: YesPlan: See attending physician orders. (8) HTN (hypertension) Qualifiers: Hypertension type: essential hypertension Is this a current diagnosis for this admission?: YesPlan: See attending physician orders. (9) HLD (hyperlipidemia) Qualifiers: Hyperlipidemia type: pure hypercholesterolemia Qualified Code(s): E78.00 - Pure hypercholesterolemia, unspecified; E78.0 - Pure hypercholesterolemia Plan: See attending physician orders. (10) Chronic pain syndrome Is this a current diagnosis for this admission?: YesPlan: See attending physician orders. - Time Time Spent with patient: 25-34 minutes Medications reviewed and adjusted accordingly: Yes Anticipated discharge: Home Within: Other - Inpatient Certification Based on my medical assessment, after consideration of the patient's comorbidities, presenting symptoms, or acuity I expect that the services needed warrant INPATIENT care.: Yes I certify that my determination is in accordance with my understanding of Medicare's requirements for reasonable and necessary INPATIENT services [42 CFR 412.3e].: Yes Medical Necessity: Need Close Monitoring Due to Risk of Patient Decompensation, Need For IV Fluids, Need For Continuous Telemetry Monitoring, Risk of Complication if Not Cared For in Hospital 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 Repeat total CK, CK MB and Troponin I levels in AM.
[2016-11-01] MEDS: NICOTINE 21 MG/24 HR PATCH.TD24 TD SCH (19:00)
[2016-11-01] MEDS: RISPERIDONE 1 MG TABLET PO SCH (21:01)
[2016-11-01] MEDS: TRAZODONE HCL 50 MG TABLET PO SCH (21:01)
[2016-11-02] MEDS: LANSOPRAZOLE 30 MG TAB.RAP.DR PO SCH (05:21)
[2016-11-02] MEDS: PREGABALIN 100 MG CAPSULE PO SCH (05:21)
[2016-11-02 06:17] LABS: CREATINE KINASE MB 4.15 ng/mL (<4.55)
[2016-11-02 06:21] LABS: TROPONIN I < 0.012 ng/mL
[2016-11-02 07:53] VITALS: BP 137/51
--- NOTE | 2016-11-02 08:21 | PDOC DISCHARGE SUMMARY ---
General - Admit/Disc Date/PCP Admission Date/Primary Care Provider: 10/31/16 08:04 NIDHISILVESTRE NULL Discharge Date: 11/02/16 - Discharge Diagnosis (1) Rhabdomyolysis Is this a current diagnosis for this admission?: Yes (2) Fall at home Is this a current diagnosis for this admission?: Yes (3) Hypopotassemia Is this a current diagnosis for this admission?: Yes (4) Diabetes mellitus type 2 in obese Is this a current diagnosis for this admission?: Yes (5) Encephalopathy due to metabolic factor or toxin Is this a current diagnosis for this admission?: Yes (6) Hyponatremia Is this a current diagnosis for this admission?: Yes (7) Anxiety Is this a current diagnosis for this admission?: Yes (8) HTN (hypertension) Is this a current diagnosis for this admission?: Yes (10) Chronic pain syndrome Is this a current diagnosis for this admission?: Yes - Additional Information Resuscitation Status: Full Code Discharge Diet: Cardiac, Diabetic Discharge Activity: Activity As Tolerated, Slowly Increase Activity, Other - maintain good oral hydration with plain water Home Medications: Albiglutide [Tanzeum] 30 mg SQ PERERA@1000 10/30/16 Doxazosin Mesylate [Cardura 4 mg Tablet] 4 mg PO DAILY 10/30/16 Esomeprazole Magnesium [Nexium] 40 mg PO DAILY 10/30/16 Ezetimibe [Zetia 10 mg Tablet] 10 mg PO DAILY 10/30/16 Famotidine [Pepcid 20 mg Tablet] 20 mg PO DAILY 10/30/16 Fluticasone/Salmeterol [Advair 250-50 Diskus 14 Dose/Diskus] 1 puff IH BID 10/30 Insulin Detemir [Levemir Flextouch] 70 units SQ Q12 10/30/16 Insulin Lispro [Humalog Insulin (Lispro) 100 unit/mL] 0 unit SQ .PERSLIDINGSCALE 10/30/16 Lidocaine [Lidoderm 5% (700 mg) Transdermal Patch] 1 patch TOP DAILY 10/30/16 Loratadine [Claritin 10 mg Tablet] 10 mg PO DAILY 10/30/16 Ondansetron [Zofran Odt 4 mg Tablet] 4 mg PO Q6HP PRN 10/30/16 Pioglitazone HCl [Actos] 45 mg PO DAILY 10/30/16 Pregabalin [Lyrica 100 mg Capsule] 100 mg PO Q8 10/30/16 Risperidone [Risperdal] 2 mg PO QHS 10/30/16 Sitagliptin Phos/Metformin HCl [Janumet 50-1,000 mg Tablet] 1 each PO BID Telmisartan/Hydrochlorothiazid [Micardis HCT 40-12.5 mg Tablet] 1 each PO DAILY 10/30/16 Trazodone HCl [Desyrel] 150 mg PO QHS 10/30/16 Albiglutide [Tanzeum] 30 mg SQ .PERERA@1000 11/02/16 History of Present Illness History of Present Illness: DONA JULIO JR is a 71 year old male known to my practice who presented to ED with complaint of not feeling right, s/p fall at home earlier in the day, confusion and dizziness. He denied any chest pain, difficulty with breathing, fever or chills. No abdominal pain, nausea or vomiting. He denied any urinary voiding problem. Patient denied any recent alcohol ingestion despite his history of alcohol abuse. His initial evaluation in the ED was remarkable for electrolyte derangement with elevated CK and CK-MB but normal troponin I level. Patient could not provide further information into the circumstance of his fall at home or if he was on the follow for a long time. Hospital Course Hospital Course: Patient did respond to IV hydration on normal saline infusion. His total CK and CK-MB serum level did improve. Patient insisted on discharge due to prearrange visit to [facility] from today for couple of days. I did explain to him that although his laboratory indices and clinical symptoms are improving his rhabdomyolysis has not totally resolved and he must maintain adequate oral hydration with water and limit physical exertion for couple of more days. I emphasized fall precautions and tips during my bedside visit today. I emphasized continue abstinence from alcohol ingestion. Patient will continue only on approved discharged home medication s listed on the discharge summary. he will follow up in the office as instructed upon discharge. Physical Exam Vital Signs: Temp Pulse Resp BP Pulse Ox 98.4 F 66 20 137/51 H 96 11/02/16 07:52 11/02/16 07:52 11/02/16 07:52 11/02/16 07:52 11/02/16 07:52 Intake & Output 11/01/16 11/02/1611/03/17 06:59 06:59 06:59 Intake Total 3940 5080 Output Total 1825 2200 Balance 2115 2880 Physical Exam: General appearance: PRESENT: no acute distress, cooperative, obese Head exam: PRESENT: atraumatic, normocephalic Eye exam: PRESENT: conjunctiva pink, EOMI, PERRLA. ABSENT: scleral icterus Mouth exam: PRESENT: moist Respiratory exam: PRESENT: clear to auscultation yahir, decreased breath sounds - at bases Cardiovascular exam: PRESENT: RRR. ABSENT: diastolic murmur, rubs, systolic murmur GI/Abdominal exam: PRESENT: normal bowel sounds, soft, other - protuberant Musculoskeletal exam: PRESENT: deformity - related to arthritis involvement of multiple joints, flat footed Neurological exam: PRESENT: alert, awake, CN II-XII grossly intact, normal gait , other - no asterixis Psychiatric exam: PRESENT: appropriate affect, normal mood. ABSENT: homicidal ideation, suicidal ideation Skin exam: PRESENT: dry, intact, warm. ABSENT: cyanosis, rash Results Laboratory Results: 11/01/16 04:34 10/31/16 18:30 Nasophary ([facility] Only) MRSA Surveillance Culture - Final NO MRSA RECOVERED 10/31/16 10/31/16 10/31/16 10:27 10:27 16:36 Creatine Kinase 424 H 412 H CK-MB (CK-2) 6.72 H Troponin I < 0.012 10/31/16 10/31/16 10/31/16 16:36 22:50 22:50 Creatine Kinase 372 H CK-MB (CK-2) 6.77 H 5.83 H Troponin I < 0.012 < 0.012 11/02/16 11/02/16 05:23 05:23 Creatine Kinase 277 H CK-MB (CK-2) 4.15 Troponin I < 0.012 Impressions: Chest X-Ray 10/30/16 00:00 IMPRESSION: NO ACUTE RADIOGRAPHIC FINDING IN THE CHEST. Head CT 10/30/16 13:15 IMPRESSION: MILD CHRONIC CHANGES OF ATROPHY AND MICROVASCULAR ISCHEMIA. LEFT MAXILLARY SINUS DISEASE. OTHERWISE NO ACUTE PROCESS. Qualifiers PATEINT BEING DISCHARGED WITH ANY OF THE FOLLOWING DIAGNOSIS?: No Plan Discharge Plan: D/C home today. Follow up in office as instructed upon discharge. Time Spent: Less than 30 Minutes
[2016-11-02] MEDS: ENOXAPARIN SODIUM INJ 40 MG/0.4 ML DISP.SYRIN SUBCUT SCH (09:59)
[2016-11-02] MEDS: FLUTICASONE/SALMETEROL DISKUS 250-50 MCG/DOSE IH SCH (10:05)
[2016-11-02] MEDS: PIOGLITAZONE HCL 15 MG TABLET PO SCH (10:06)
[2016-11-02] MEDS: DOXAZOSIN MESYLATE 4 MG TABLET PO SCH (10:06)
[2016-11-02] MEDS: HYDROCHLOROTHIAZIDE 12.5 MG CAPSULE PO SCH (10:07)
[2016-11-02] MEDS: LOSARTAN POTASSIUM 50 MG TABLET PO SCH (10:07)
[2016-11-02] MEDS: EZETIMIBE 10 MG TABLET PO SCH (10:07)
[2016-11-02] MEDS: INSULIN DETEMIR 100 UNIT/ML 3 ML PEN SUBCUT SCH (10:10)
[2016-11-02] MEDS: LIDOCAINE 5% (700 MG) TRANSDERMAL ADH..PATCH TP SCH (10:39)
[2016-11-05] MEDS ORDERED: (PENDING PHARMACY ID) (Albiglutide [Tanzeum] 30 MG) SQ SCH (10:00)
== END 2016-11-02 15:17 | disposition home or self-care (01) | DRG 557 ==
LOC: ER 12:22 → EH 18:15 → UNDOADMOB 18:15 → EH 22:34 → 4S 22:34 → EH 23:02 → OBSVTOIN 10-31 08:04
PROVIDERS: ADMIT Internal Medicine Geriatric Medicine; ATTEND Internal Medicine Geriatric Medicine
DX: M62.82 Rhabdomyolysis (principal); G93.41 Metabolic encephalopathy; E87.1 Hypo-osmolality and hyponatremia; D64.9 Anemia, unspecified; I10 Essential (primary) hypertension; J44.9 Chronic obstructive pulmonary disease, unspecified; E87.6 Hypokalemia; F32.9 Major depressive disorder, single episode, unspecified; G89.4 Chronic pain syndrome; E11.9 Type 2 diabetes mellitus without complications; F17.210 Nicotine dependence, cigarettes, uncomplicated; F41.9 Anxiety disorder, unspecified; F10.10 Alcohol abuse, uncomplicated; K21.9 Gastro-esophageal reflux disease without esophagitis; Z91.81 History of falling; Z79.4 Long term (current) use of insulin; Z79.899 Other long term (current) drug therapy
CPT/HCPCS: 36415; 70450; 71010; 80048; 80053; 80307; 81001; 82272; 82550; 82553; 82962; 84484; 85025; 85610; 85730; 93005; 93010; 99285; G0378; J1650; J1815; J3490; J7030

== ENCOUNTER 2016-12-14 04:25 | Emergency (ER) | payer MEDICARE, OTHER ==
[2016-12-14 04:39] VITALS: BP 109/65
[2016-12-14] MEDS ORDERED: HYDROCODONE/ACETAMINOPHEN 5-325 MG TABLET PO ONE (06:02)
[2016-12-14] MEDS ORDERED: DIAZEPAM INJ 10 MG/2 ML DISP.SYRIN IM ONE (06:58)
--- NOTE | 2016-12-14 07:00 | ER Document Report ---
ED General - General Chief Complaint: Back Pain Stated Complaint: BACK PAIN Time Seen by Provider: 12/14/16 06:02 Mode of Arrival: Ambulatory Information source: Patient Notes: 71-year-old male presents with concerns of exacerbation of his chronic sciatic pain. Patient denies any neurologic deficits denies any cauda equina concerns Patient denies any injuries, symptoms ongoing for 2-3 days TRAVEL OUTSIDE OF THE [place] IN LAST 30 DAYS: No - HPI Onset: Other Onset/Duration: Persistent Quality of pain: Achy Severity: Mild Pain Level: 1 Associated symptoms: Body/muscle aches Exacerbated by: Movement Relieved by: Denies Similar symptoms previously: Yes Recently seen / treated by doctor: Yes - Related Data Allergies/Adverse Reactions: No Known Allergies Allergy (Verified 10/30/16 12:50) Past Medical History - Social History Smoking Status: Current Every Day Smoker Cigarette use (# per day): Yes Chew tobacco use (# tins/day): No Smoking Education Provided: No Family History: None, Reviewed & Not Pertinent Patient has suicidal ideation: No Patient has homicidal ideation: No - Past Medical History Cardiac Medical History: Reports: Hx Hypercholesterolemia, Hx Hypertension Pulmonary Medical History: Reports: Hx COPD Denies: Hx Tuberculosis Endocrine Medical History: Reports: Hx Diabetes Mellitus Type 2 Renal/ Medical History: Denies: Hx Peritoneal Dialysis GI Medical History: Reports: Hx Gastroesophageal Reflux Disease Psychiatric Medical History: Reports: Hx Depression Past Surgical History: Reports: Hx Orthopedic Surgery - RLE, right carpal tunnel , Hx Tonsillectomy - Immunizations Hx Diphtheria, Pertussis, Tetanus Vaccination: Yes - 2010 Hx Pneumococcal Vaccination: 07/23/12 Review of Systems - Review of Systems Notes: PHYSICAL EXAMINATION: GENERAL: Well-appearing, well-nourished and in no acute distress. HEAD: Atraumatic, normocephalic. EYES: Pupils equal round and reactive to light, extraocular movements intact, sclera anicteric, conjunctiva are normal. ENT: Nares patent, oropharynx clear without exudates. Moist mucous membranes. NECK: Normal range of motion, supple without lymphadenopathy LUNGS: Breath sounds clear to auscultation bilaterally and equal. No wheezes rales or rhonchi. HEART: Regular rate and rhythm without murmurs ABDOMEN: Soft, nontender, nondistended abdomen. No guarding, no rebound. No masses appreciated. Musculoskeletal: Patient ambulating with a cane, tenderness in the right sciatic region on palpation no step-offs no deformities patient has good sensation in the leg NEUROLOGICAL: Cranial nerves grossly intact. Normal speech, normal gait. Normal sensory, motor exams PSYCH: Normal mood, normal affect. SKIN: Warm, Dry, normal turgor, no rashes or lesions noted. Physical Exam - Vital signs Vitals: Temp Pulse Resp BP Pulse Ox 97.2 F 70 18 109/65 99 12/14/16 04:31 12/14/16 04:12/14/16 04:12/14/16 04:12/14/16 04:31 Course - Re-evaluation Re-evalutation: 12/14/16 07:20 Given that this is a chronic issue I do not expect any life-threatening concerns , patient has no cauda equina concerns. He will be treated with Valium States he already has narcotics at home After performing a Medical Screening Examination, I estimate there is LOW risk for EXPANDING OR RUPTURED ABDOMINAL AORTIC ANEURYSM, CAUDA EQUINA SYNDROME, EPIDURAL MASS LESION, or HERNIATED DISK CAUSING SEVERE SPINAL STENOSIS, thus I consider the discharge disposition reasonable. I have reevaluated this patient multiple times and no significant life threatening changes are noted. The patient and I have discussed the diagnosis and risks, and we agree with discharging home and close follow-up. We also discussed returning to the Emergency Department immediately if new or worsening symptoms occur with the understanding that symptoms and presentations can change. We have discussed the symptoms which are most concerning (e.g., saddle anesthesia, urinary or bowel incontinence or retention, changing or worsening pain) that necessitate immediate return. - Vital Signs Vital signs: Temp Pulse Resp BP Pulse Ox 97.2 F 70 18 109/65 99 12/14/16 04:31 12/14/16 04:31 12/14/16 04:12/14/16 04:12/14/16 04:31 Discharge - Discharge Clinical Impression: Chronic pain syndrome Sciatica Qualifiers: Laterality: right Qualified Code(s): M54.31 - Sciatica, right side Condition: Stable Disposition: HOME, SELF-CARE Instructions: Low Back Pain ([facility]), Sciatica ([facility]) Prescriptions: Diazepam [Valium 5 mg Tablet] 5 mg PO QIDP PRN #15 tablet PRN Reason: Prednisone [Deltasone 20 mg Tablet] 3 tab PO DAILY 5 Days Referrals: MONICA RUELAS MD [ACTIVE STAFF] - Follow up tomorrow
== END 2016-12-14 07:24 | disposition home or self-care (01) ==
LOC: ER 04:25
DX: G89.4 Chronic pain syndrome (principal); M54.31 Sciatica, right side; F17.210 Nicotine dependence, cigarettes, uncomplicated; I10 Essential (primary) hypertension; J44.9 Chronic obstructive pulmonary disease, unspecified; E11.9 Type 2 diabetes mellitus without complications
CPT/HCPCS: 99283; 96372; J3360; A9270

== ENCOUNTER 2017-01-15 03:41 | Emergency (ER) | payer MEDICARE, OTHER ==
[2017-01-15 05:18] LABS: ABSOLUTE BASOPHILS # (AUTO) 0.1 10^3/uL (0.0-0.2); ABSOLUTE EOSINOPHILS # (AUTO) 0.2 10^3/uL (0.0-0.6); ABSOLUTE LYMPHOCYTES (AUTO) 2.7 10^3/uL (0.5-4.7); ABSOLUTE MONOCYTES (AUTO) 0.4 10^3/uL (0.1-1.4); ABSOLUTE NEUT (AUTO) 2.5 10^3/uL (1.7-8.2); BASOPHILS % (AUTO) 0.9 % (0-2); EOSINOPHILS % (AUTO) 3.1 % (0-6); HEMATOCRIT 41.8 % (37.9-51.0); HEMOGLOBIN 14.2 g/dL (13.5-17.0); HGB HCT DIFFERENCE 0.8; MEAN CORPUSCULAR HEMOGLOBIN 27.8 pg (27.0-33.4); MEAN CORPUSCULAR HGB CONC 34.1 g/dL (32.0-36.0); MEAN CORPUSCULAR VOLUME 82 fl (80-97); MONOCYTES % (AUTO) 7.6 % (3-13); RED BLOOD COUNT 5.12 10^6/uL (4.35-5.55); RED CELL DISTRIBUTION WIDTH 16.3 % (11.5-14.0); SEGMENTED NEUTROPHILS % (AUTO) 42.4 % (42-78); WHITE BLOOD COUNT 5.9 10^3/uL (4.0-10.5)
[2017-01-15 05:26] LABS: ALANINE AMINOTRANSFERASE 43 U/L (21-72); ALKALINE PHOSPHATASE 110 U/L (38-126); ANION GAP 13 (5-19); ASPARTATE AMINO TRANSFERASE 40 U/L (17-59); BILIRUBIN,DIRECT 0.4 mg/dL (0.0-0.4); BILIRUBIN,TOTAL 0.5 mg/dL (0.2-1.3); BLOOD UREA NITROGEN 10 mg/dL (7-20); CARBON DIOXIDE 26 mmol/L (22-30); CHLORIDE 98 mmol/L (98-107); CREATININE RESULT 0.96 mg/dL (0.52-1.25); GLUCOSE 172 mg/dL (75-110); POTASSIUM 3.7 mmol/L (3.6-5.0); SODIUM 136.9 mmol/L (137-145); TOTAL PROTEIN 7.3 g/dL (6.3-8.2)
[2017-01-15] MEDS ORDERED: ACETAMINOPHEN 325 MG TABLET PO ONE (05:42)
--- NOTE | 2017-01-15 05:48 | ER Document Report ---
ED General - General Chief Complaint: Shortness Of Breath Stated Complaint: SHORT OF BREATH Time Seen by Provider: 01/15/17 03:47 Mode of Arrival: Medic Information source: Patient Notes: Patient presents to the emergency department via EMS for complaints of low blood sugar and shortness of breath. Upon arrival to the patient's house EMS noted patient was smoking and they had to wait for him to put out a cigarette. Patient reports his blood sugar read low twice. He ate a fruit cup. Upon arrival EMS obtained an accucheck of 185. Patient also admits to positive EtOH. Reports to mixed drinks tonight. Patient is talking in full sentences with no shortness of breath noted, not slurring his words. Denies other symptoms such as fever vomiting diarrhea chest pain. Patient is very well known to staff. TRAVEL OUTSIDE OF THE [place] IN LAST 30 DAYS: No - HPI Onset: Just prior to arrival Onset/Duration: Sudden Quality of pain: No pain Associated symptoms: Shortness of breath Exacerbated by: Denies Relieved by: Denies Similar symptoms previously: Yes Recently seen / treated by doctor: No - Related Data Allergies/Adverse Reactions: No Known Allergies Allergy (Verified 10/30/16 12:50) Past Medical History - General Information source: Patient - Social History Smoking Status: Current Every Day Smoker Cigarette use (# per day): Yes Frequency of alcohol use: Heavy Drug Abuse: None Lives with: Alone Family History: None, Reviewed & Not Pertinent - Past Medical History Cardiac Medical History: Reports: Hx Hypercholesterolemia, Hx Hypertension Pulmonary Medical History: Reports: Hx COPD Denies: Hx Tuberculosis Endocrine Medical History: Reports: Hx Diabetes Mellitus Type 2 Renal/ Medical History: Denies: Hx Peritoneal Dialysis GI Medical History: Reports: Hx Gastroesophageal Reflux Disease Psychiatric Medical History: Reports: Hx Depression Past Surgical History: Reports: Hx Orthopedic Surgery - RLE, right carpal tunnel , Hx Tonsillectomy - Immunizations Hx Diphtheria, Pertussis, Tetanus Vaccination: Yes - 2010 Hx Pneumococcal Vaccination: 07/23/12 Review of Systems - Review of Systems Notes: Review HPI for review of systems., All other systems negative Physical Exam - Vital signs Vitals: Resp Pulse Ox 21 H 97 01/15/17 03:47 01/15/17 03:47 - Notes Notes: PHYSICAL EXAMINATION: GENERAL: nontoxic looking, in no distress HEAD: Atraumatic, normocephalic. EYES: Pupils equal round , extraocular movements intact, sclera anicteric, conjunctiva are normal. long eyelashes ENT: nares patent, Moist mucous membranes. NECK: Normal range of motion, supple without lymphadenopathy LUNGS: RR even, unlabored. 02sat 96%. No wheezes rales or rhonchi. no cough, no SOB HEART: Regular rate and rhythm without murmurs ABDOMEN: Soft, no tenderness. No guarding, no rebound denies pain, [id number]. EXTREMITIES: Normal range of motion, no pitting edema. No cyanosis. NEUROLOGICAL: Cranial nerves grossly intact. Normal sensory/motor exams. PSYCH: Normal mood, normal affect. SKIN: Warm, Dry, normal turgor, no rashes or lesions noted Course - Re-evaluation Re-evalutation: 01/15/17 05:48 pt c/o pain all over, tylenol ordered. 01/15/17 06:47 Labs unremarkable x-ray negative. Blood glucose 175. Patient updated on x-ray and labs. Patient is in no distress walking around the room without shortness of breath. He was instructed to follow-up with Dr. Gutierres later this week for recheck. He verbalized understanding to all instructions. - Vital Signs Vital signs: Temp Pulse Resp BP Pulse Ox 15 133/86 H 96 01/15/17 04:01 01/15/17 04:00 01/15/17 04:01 - Laboratory Result Diagrams: 01/15/17 03:54 01/15/17 03:54 Laboratory results interpreted by me: 01/15/17 01/15/17 01/15/17 03:54 03:54 05:23 RDW 16.3 H Lymphocytes % 46.0 H Sodium 136.9 L Glucose 172 H POC Glucose 175 H - Diagnostic Test Radiology reviewed: Image reviewed, Reports reviewed - negative Discharge - Discharge Clinical Impression: Glucose concern, Shortness of breath, Elevated blood pressure reading, Smoking addiction Condition: Stable Disposition: HOME, SELF-CARE Additional Instructions: *You have been evaluated for glucose concern, shortness of breath, elevated blood pressure reading, smoking addiction *Quit smoking *Follow up with Dr Gutierres this week *Return to ED for fever, cough, worsening condition, changes, needs Monitor your blood pressure. Your blood pressure was elevated today. This may be because you were anxious, in pain or because you need medication. It is important to follow up with your primary care provider for full evaluation. Forms: Elevated Blood Pressure, Smoking Cessation Education
--- NOTE | 2017-01-15 06:07 | RADIOLOGY REPORT (SQ) ---
EXAM DESCRIPTION: CHEST SINGLE VIEW COMPLETED DATE/TIME: 01/15/2017 5:58 am REASON FOR STUDY: sob COMPARISON: 10/30/2016. EXAM PARAMETERS: NUMBER OF VIEWS: One view. TECHNIQUE: Single frontal radiographic view of the chest acquired. RADIATION DOSE: NA LIMITATIONS: None. FINDINGS: LUNGS AND PLEURA: No opacities, masses or pneumothorax. No pleural effusion. MEDIASTINUM AND HILAR STRUCTURES: No masses. Contour normal. HEART AND VASCULAR STRUCTURES: Heart normal in size. Normal vasculature. BONES: [id number] primary osteoarthritis. HARDWARE: None in the chest. OTHER: No other significant finding. IMPRESSION: No acute cardiopulmonary findings. TECHNICAL DOCUMENTATION: JOB ID: [id number]
[2017-01-15 06:32] LABS: CREATINE KINASE MB 2.87 ng/mL (<4.55); TROPONIN I < 0.012 ng/mL
[2017-01-15 07:42] VITALS: BP 119/85
--- NOTE | 2017-01-15 08:43 | EKG REPORT ---
SEVERITY:- ABNORMAL ECG - SINUS TACHYCARDIA LEFT ANTERIOR FASCICULAR BLOCK : Confirmed by: Katerina Mckeon 15-Jan-2017 08:42:06
== END 2017-01-15 07:43 | disposition home or self-care (01) ==
LOC: ER 03:41
DX: J44.9 Chronic obstructive pulmonary disease, unspecified (principal); R06.02 Shortness of breath; E11.9 Type 2 diabetes mellitus without complications; F17.210 Nicotine dependence, cigarettes, uncomplicated; I10 Essential (primary) hypertension; R52 Pain, unspecified
CPT/HCPCS: 93005; 99285; 36415; 82553; 82962; 82550; 85025; 80053; 84484; 71010; 93010; A9270

== ENCOUNTER → 2017-03-27 | Outpatient (CLI) | payer MEDICARE, OTHER ==
--- NOTE | 2017-03-27 16:08 | RADIOLOGY REPORT (SQ) ---
EXAM DESCRIPTION: CT ABD/PELVIS WITH IV ORAL COMPLETED DATE/TIME: 03/27/2017 2:41 pm REASON FOR STUDY: RUQ PAIN F17.200 NICOTINE DEPENDENCE, UNSPECIFIED, UNCOMPLICATED Z87.19 PERSONAL HISTORY OF OTHER DISEASES OF THE DIGESTIVE S R10.11 RIGHT UPPER QUADRANT PAIN COMPARISON: None. TECHNIQUE: CT scan of the abdomen and pelvis performed using helical scanning technique with dynamic intravenous contrast injection. Oral contrast. Images reviewed with lung, soft tissue, and bone win dows. Reconstructed coronal and sagittal MPR images reviewed. Delayed images for evaluation of the ur inary system also acquired. All images stored on PACS. All CT scanners at this facility use dose modulation, iterative reconstruction, and/or weight based d osing when appropriate to reduce radiation dose to as low as reasonably achievable (ALARA). [facility]: Dose Right [facility]: CareDose [facility]: Dose Right [facility]: Teradose 4D [facility]: Lumiata CONTRAST TYPE AND DOSE: contrast/concentration: Isovue 370.00 mg/ml; Total Contrast Delivered: 85.0 ml; Total Saline Delivered: 69.0 ml RENAL FUNCTION: Creatinine 1.0 RADIATION DOSE: Up-to-date CT equipment and radiation dose reduction techniques were employed. CTDIv ol: 10.9 - 12.4 mGy. DLP: 1128 mGy-cm.. LIMITATIONS: None. FINDINGS: LOWER CHEST: No significant findings. No nodules or infiltrates. LIVER: Normal size. No masses. No dilated ducts. SPLEEN: Normal size. No focal lesions. PANCREAS: No masses. No significant calcifications. No adjacent inflammation or peripancreatic fluid collections. Pancreatic duct not dilated. GALLBLADDER: A single small gallstone is present. ADRENAL GLANDS: No significant masses or asymmetry. RIGHT KIDNEY AND URETER: No solid masses. No significant calcifications. No hydronephrosis or hyd roureter. LEFT KIDNEY AND URETER: No solid masses. No significant calcifications. No hydronephrosis or hydr oureter. AORTA AND VESSELS: No aneurysm. No dissection. Renal arteries, SMA, celiac without stenosis. RETROPERITONEUM: No retroperitoneal adenopathy, hemorrhage or masses. BOWEL AND PERITONEAL CAVITY: Questionable 20 x 44 mm mass versus stool in the cecum. Scattered diver ticula arising sigmoid colon and there are few cecal diverticula. APPENDIX: Not identified. PELVIS: The urinary bladder is normal. The prostate gland is enlarged. ABDOMINAL WALL: No masses. No hernias. BONES: Lumbar scoliosis, spondylosis, and degenerative disc disease. Thoracic spondylosis. OTHER: No other significant finding. IMPRESSION: 1. Questionable mass in the cecum. 2. Diverticulosis coli. 3. Prostatic hypertrophy. 4. Cholelithiasis. 5. Osseous changes as described. TECHNICAL DOCUMENTATION: JOB ID: [id number] Quality ID # [id number]: Final reports with documentation of one or more dose reduction techniques (e.g., Au tomated exposure control, adjustment of the mA and/or kV according to patient size, use of iterative reconstruction technique) 2010 [employer]- All Rights Reserved
== END ==
LOC: RAD 13:40
PROVIDERS: ATTEND Urology
DX: R10.11 Right upper quadrant pain (principal); F17.200 Nicotine dependence, unspecified, uncomplicated; Z87.19 Personal history of other diseases of the digestive system
CPT/HCPCS: 74177; 82565

== ENCOUNTER 2017-03-28 12:25 | Emergency (ER) | payer MEDICARE, OTHER ==
--- NOTE | 2017-03-28 12:43 | ER Document Report ---
ED Medical Screen (RME) - General Chief Complaint: Abdominal Pain Stated Complaint: LOWER LEFT ABDOMINAL PAIN Time Seen by Provider: 03/28/17 12:41 Notes: Patient states that he sees a urologist for testosterone shots. He denies any history of kidney problems. He states he recently went to this doctor because he has been having several weeks of right flank pain and some nausea. He denies any problems with urine or bowel movements. He states that this physician ordered a CAT scan with contrast but he has not received the results yet. He states he comes in today because the pain intensified. He states he did have several mixed drinks this morning to help with the pain. TRAVEL OUTSIDE OF THE [place] IN LAST 30 DAYS: No - Related Data Allergies/Adverse Reactions: No Known Allergies Allergy (Verified 10/30/16 12:50) Past Medical History - Social History Frequency of alcohol use: Social Drug Abuse: None - Past Medical History Cardiac Medical History: Reports: Hx Hypercholesterolemia, Hx Hypertension Pulmonary Medical History: Reports: Hx COPD Denies: Hx Tuberculosis Endocrine Medical History: Reports: Hx Diabetes Mellitus Type 2 Renal/ Medical History: Denies: Hx Peritoneal Dialysis GI Medical History: Reports: Hx Gastroesophageal Reflux Disease Psychiatric Medical History: Reports: Hx Depression Past Surgical History: Reports: Hx Orthopedic Surgery - RLE, right carpal tunnel , Hx Tonsillectomy - Immunizations Hx Diphtheria, Pertussis, Tetanus Vaccination: Yes - 2010 Physical Exam - Vital signs Vitals: Temp Pulse Resp BP Pulse Ox 97.7 F 77 20 122/76 94 03/28/17 12:33 03/28/17 12:33 03/28/17 12:33 03/28/17 12:33 03/28/17 12:33 Course - Vital Signs Vital signs: Temp Pulse Resp BP Pulse Ox 97.7 F 77 20 122/76 94 03/28/17 12:33 03/28/17 12:33 03/28/17 12:33 03/28/17 12:33 03/28/17 12:33
[2017-03-28 13:38] LABS: ABSOLUTE BASOPHILS # (AUTO) 0.1 10^3/uL (0.0-0.2); ABSOLUTE EOSINOPHILS # (AUTO) 0.2 10^3/uL (0.0-0.6); ABSOLUTE LYMPHOCYTES (AUTO) 2.3 10^3/uL (0.5-4.7); ABSOLUTE MONOCYTES (AUTO) 0.5 10^3/uL (0.1-1.4); ABSOLUTE NEUT (AUTO) 3.5 10^3/uL (1.7-8.2); BASOPHILS % (AUTO) 1.2 % (0-2); HEMATOCRIT 44.4 % (37.9-51.0); HEMOGLOBIN 14.8 g/dL (13.5-17.0); LYMPHOCYTES % (AUTO) 34.6 % (13-45); MEAN CORPUSCULAR HEMOGLOBIN 30.4 pg (27.0-33.4); MEAN CORPUSCULAR HGB CONC 33.4 g/dL (32.0-36.0); MEAN CORPUSCULAR VOLUME 91 fl (80-97); MONOCYTES % (AUTO) 7.6 % (3-13); RED BLOOD COUNT 4.88 10^6/uL (4.35-5.55); RED CELL DISTRIBUTION WIDTH 15.4 % (11.5-14.0); SEGMENTED NEUTROPHILS % (AUTO) 53.6 % (42-78); WHITE BLOOD COUNT 6.6 10^3/uL (4.0-10.5)
[2017-03-28 13:52] LABS: APPEARANCE,URINE CLEAR; BILIRUBIN,URINE NEGATIVE (NEGATIVE); GLUCOSE, URINE NEGATIVE (NEGATIVE); KETONES,URINE NEGATIVE (NEGATIVE); URINE SPECIFIC GRAVITY 1.003
[2017-03-28 13:53] LABS: LEUKOCYTE ESTERASE,URINE NEGATIVE (NEGATIVE); NITRITE,URINE NEGATIVE (NEGATIVE); PROTEIN,URINE NEGATIVE (NEGATIVE); UROBILINOGEN,URINE NEGATIVE mg/dL (<2.0)
[2017-03-28 14:03] LABS: ALANINE AMINOTRANSFERASE 35 U/L (21-72); ALBUMIN 3.6 g/dL (3.5-5.0); ALCOHOL 87 mg/dL (NONE DETECTED); ALKALINE PHOSPHATASE 74 U/L (38-126); ANION GAP 12 (5-19); ASPARTATE AMINO TRANSFERASE 38 U/L (17-59); BILIRUBIN,DIRECT 0.4 mg/dL (0.0-0.4); BILIRUBIN,TOTAL 0.5 mg/dL (0.2-1.3); BLOOD UREA NITROGEN 5 mg/dL (7-20); CALCIUM 8.7 mg/dL (8.4-10.2); CARBON DIOXIDE 24 mmol/L (22-30); CHLORIDE 98 mmol/L (98-107); CREATININE RESULT 0.91 mg/dL (0.52-1.25); GLUCOSE 172 mg/dL (75-110); POTASSIUM 3.6 mmol/L (3.6-5.0); SODIUM 133.9 mmol/L (137-145); TOTAL PROTEIN 6.3 g/dL (6.3-8.2)
[2017-03-28 14:14] LABS: BACTERIA,URINE TRACE /HPF; RBC,URINE NONE SEEN /HPF; WBC,URINE 0-1 /HPF
--- NOTE | 2017-03-28 15:23 | RADIOLOGY REPORT (SQ) ---
EXAM DESCRIPTION: U/S ABDOMEN LIMITED W/O DOP COMPLETED DATE/TIME: 03/28/2017 3:14 pm REASON FOR STUDY: right side abdominal pain COMPARISON: None. TECHNIQUE: Dynamic and static grayscale images acquired of the abdomen and recorded on PACS. Additio nal selected color Doppler and spectral images recorded. LIMITATIONS: None. FINDINGS: PANCREAS: The head of the pancreas is normal. The body and tail were obscured by gas. LIVER: 15.6 cm. Diffusely echogenic, mildly heterogeneous. LIVER VASCULATURE: Normal directional flow of the main portal vein and hepatic veins. GALLBLADDER: The gallbladder is contracted. Some small stones are present. ULTRASOUND-DETECTED LO'S SIGN: Negative. INTRAHEPATIC DUCTS AND COMMON DUCT: CBD and intrahepatic ducts normal caliber. No filling defects. INFERIOR VENA CAVA: Normal flow. AORTA: No aneurysm. RIGHT KIDNEY: Normal size, 11.9 cm. Normal echogenicity. No solid or suspicious masses. No hydroneph rosis. No calcifications. PERITONEAL AND RIGHT PLEURAL SPACE: No ascites or effusions. OTHER: No other significant findings. IMPRESSION: Cholelithiasis with no evidence of cholecystitis. Fatty infiltration of the liver. TECHNICAL DOCUMENTATION: JOB ID: [id number] [employer]- All Rights Reserved
--- NOTE | 2017-03-28 15:59 | ER Document Report ---
ED General - General Chief Complaint: Abdominal Pain Stated Complaint: LOWER LEFT ABDOMINAL PAIN Time Seen by Provider: 03/28/17 12:41 Mode of Arrival: Ambulatory Information source: Patient Notes: This is a 72-year-old man with a history of hypertension, diabetes who presents to the emergency room with persistent right flank pain. Patient was seen by his urologist (Dr. Diane) ordered a CAT scan which was performed yesterday. Patient states that he does have an appointment with Dr. Albarran (GI) for an outpatient colonoscopy in 1 week. Patient denies any fever, chills, nausea vomiting. Patient denies any blood in the urine or blood in the stool. TRAVEL OUTSIDE OF THE [place] IN LAST 30 DAYS: No - HPI Onset: Last week Onset/Duration: Gradual Quality of pain: Dull Severity: Moderate Pain Level: 3 Associated symptoms: denies: Chest pain, Fever, Shortness of breath Exacerbated by: Denies Relieved by: Denies Similar symptoms previously: Yes Recently seen / treated by doctor: Yes - Related Data Allergies/Adverse Reactions: No Known Allergies Allergy (Verified 10/30/16 12:50) Home Medications: Current Home Medications Amlodipine Besylate 5 mg PO DAILY 03/28/17 [History] Exenatide Microspheres [Bydureon Pen] 2 mg SQ DAILY 03/28/17 [History] Furosemide [Lasix 20 mg Tablet] 20 mg PO QAM 03/28/17 [History] Gabapentin Enacarbil [Horizant] 600 mg PO DAILY 03/28/17 [History] Hydroxyzine Pamoate 50 mg PO QID PRN 03/28/17 [History] Travoprost (Benzalkonium) [Travatan 0.004% Eye Drop] 5 ml OP DAILY 03/28/17 [ History] Past Medical History - General Information source: Patient - Social History Smoking Status: Never Smoker Cigarette use (# per day): No Chew tobacco use (# tins/day): No Frequency of alcohol use: Social Drug Abuse: None Lives with: Family Family History: None, Reviewed & Not Pertinent Patient has suicidal ideation: No Patient has homicidal ideation: No - Past Medical History Cardiac Medical History: Reports: Hx Hypercholesterolemia, Hx Hypertension Pulmonary Medical History: Reports: Hx COPD Denies: Hx Tuberculosis Endocrine Medical History: Reports: Hx Diabetes Mellitus Type 2 Renal/ Medical History: Denies: Hx Peritoneal Dialysis GI Medical History: Reports: Hx Gastroesophageal Reflux Disease Psychiatric Medical History: Reports: Hx Depression Past Surgical History: Reports: Hx Orthopedic Surgery - RLE, right carpal tunnel , Hx Tonsillectomy - Immunizations Hx Diphtheria, Pertussis, Tetanus Vaccination: Yes - 2010 Hx Pneumococcal Vaccination: 07/23/12 Review of Systems - Review of Systems Constitutional: denies: Chills, Fever EENT: No symptoms reported Cardiovascular: No symptoms reported Respiratory: No symptoms reported Gastrointestinal: See HPI Genitourinary: No symptoms reported Male Genitourinary: No symptoms reported Musculoskeletal: No symptoms reported Skin: No symptoms reported Hematologic/Lymphatic: No symptoms reported Neurological/Psychological: No symptoms reported Physical Exam - Vital signs Vitals: Temp Pulse Resp BP Pulse Ox 97.7 F 77 20 122/76 94 03/28/17 12:33 03/28/17 12:33 03/28/17 12:33 03/28/17 12:33 03/28/17 12:33 Notes: Physical exam: GENERAL: 72-year-old man, alert and oriented 3, no acute distress HEAD: Atraumatic, normocephalic. EYES: Pupils equal round and reactive to light, extraocular movements intact, sclera anicteric, conjunctiva are normal. ENT: TMs normal, nares patent, oropharynx clear without exudates. Moist mucous membranes. NECK: Normal range of motion, supple without obvious mass or JVD. LUNGS: Breath sounds clear to auscultation bilaterally and equal. No wheezes rales or rhonchi. HEART: Regular rate and rhythm without murmurs, rubs or gallops. ABDOMEN: Soft, normoactive bowel sounds. No tenderness to palpation. No guarding, no rebound. No masses appreciated. EXTREMITIES: Normal range of motion, no pitting or edema. No clubbing or cyanosis. NEUROLOGICAL: Cranial nerves II through XII grossly intact. Normal speech, moving all extremities. PSYCH: Normal mood, normal affect. SKIN: Warm, Dry, normal turgor, no rashes or lesions noted. Course - Re-evaluation Re-evalutation: 03/28/17 16:04 Patient is ambulating the halls and asking for food. He has gone to the bathroom and not having any problems. There is no evidence of obstruction. His abdomen is soft. I talked to him about the CT finding that shows a possible cecal mass versus stool. He told me that he has an appointment with Dr. Dixon for colonoscopy within 1 week. I have given the patient a copy of his CT findings to bring to Dr. Albarran. - Vital Signs Vital signs: Temp Pulse Resp BP Pulse Ox 97.5 F 68 16 140/76 H 98 03/28/17 15:57 03/28/17 15:57 03/28/17 15:57 03/28/17 15:57 03/28/17 15:57 - Laboratory Result Diagrams: 03/28/17 13:15 03/28/17 13:15 Laboratory results interpreted by me: 03/28/17 03/28/17 13:15 13:15 RDW 15.4 H Sodium 133.9 L BUN 5 L Glucose 172 H - Diagnostic Test Radiology reviewed: Image reviewed, Reports reviewed - Abdominal ultrasound shows cholelithiasis without any cholecystitis Discharge - Discharge Clinical Impression: Abdominal pain Condition: Stable Disposition: HOME, SELF-CARE Instructions: Abdominal Pain ([facility]) Additional Instructions: As we discussed the CAT scan performed yesterday that was ordered by Dr. Diane shows a questionable small mass or possible stool) in the cecum. You have an appointment for colonoscopy in [address] Albarran: I would like you to bring a copy of the CT scan (I gave you a copy ) with your evaluation when you see Dr. Albarran. Additionally, I want you to discuss this finding with both your primary care doctor (Dr. Null and your urologist (Dr. Diane who ordered this test. Take the medicine as prescribed for discomfort. Call Dr. Null for an appointment this week. Prescriptions: Dicyclomine HCl [Bentyl 10 mg Capsule] 1 cap PO TID #30 cap Referrals: NIDHI NULL MD [Primary Care Provider] - Follow up as needed SARAHY ALBARRAN MD [ACTIVE STAFF] - Follow up as needed (Follow-up as planned with Dr. Albarran of GI bring a copy of yesterday's CT report with you when you see Dr. Albarran. )
[2017-03-28 16:01] VITALS: BP 140/76
== END 2017-03-28 16:00 | disposition home or self-care (01) ==
LOC: ER 12:25
DX: R10.32 Left lower quadrant pain (principal); I10 Essential (primary) hypertension; E11.9 Type 2 diabetes mellitus without complications; Z79.899 Other long term (current) drug therapy
CPT/HCPCS: 36415; 76705; 80053; 80307; 81001; 85025; 99284

== ENCOUNTER → 2017-04-12 | Outpatient (CLI) | payer MEDICARE, OTHER ==
--- NOTE | 2017-04-12 15:02 | RADIOLOGY REPORT (SQ) ---
EXAM DESCRIPTION: MRI LUMBAR SPINE WITHOUT COMPLETED DATE/TIME: 04/12/2017 11:42 am REASON FOR STUDY: LUMBAR RADICULOPATHY (M54.16) M54.16 RADICULOPATHY, LUMBAR REGION COMPARISON: CT abdomen pelvis 03/27/2017, 09/15/2016 TECHNIQUE: Sagittal and Axial imaging includes T1, T2, STIR and gradient echo sequences. Coronal T2/ HASTE imaging. LIMITATIONS: None. FINDINGS: VISUALIZED UPPER ABDOMEN: Limited evaluation. No acute or suspicious findings suggested. SEGMENTATION: No transitional anatomy. The lowest well-developed disc space is labeled L5-S1. ALIGNMENT: Degenerative convex rightward lumbar curvature VERTEBRAE: Intact. BONE MARROW: Fatty reactive marrow endplate changes at multiple levels through the thoracic and lumba r spine DISC SIGNAL: Diffuse decreased T2 weighted intervertebral disc signal at T9-10, T10-11, and from T12- L1 through L5-S1. POSTERIOR ELEMENTS: Generally intact. No pars defect evident. HARDWARE: None in the spine. CORD AND CONUS: Normal in size and signal intensity. Conus at the L1-2 level. SOFT TISSUES: No aortic aneurysm seen. No bulky retroperitoneal adenopathy or mass. No paraspinal mas s or fluid. T9-10: Broad diffuse bulge, moderate bilateral facet hypertrophy right greater than left. Borderlin e central canal narrowing. Moderate to high-grade right, mild left foraminal narrowing. T10-11: Mild diffuse posterior disc bulge and bulky bilateral facet hypertrophy. Moderate to high-g rade right foraminal narrowing, mild left foraminal narrowing. No central stenosis. T11-12: Mild bilateral facet hypertrophy. No central or foraminal encroachment. T12-L1: Broad diffuse posterior disc bulge and bony spurring with mild central canal narrowing. Mod erate bilateral facet and ligament hypertrophy. Mild to moderate bilateral foraminal narrowing. L1-L2: Minimal posterior disc bulging, mild bilateral facet and ligament hypertrophy. No central janie nosis or right foraminal narrowing. Mild left foraminal narrowing. L2-L3: Broad diffuse posterior disc bulge and bony spurring left greater than right with bilateral fa cet and ligament hypertrophy. Mild central canal narrowing. No right foraminal narrowing. High-gra de left foraminal narrowing. L3-L4: Broad diffuse posterior disc bulge and bony spurring is present with moderate bilateral facet and ligament hypertrophy. Borderline central canal narrowing. Moderate right, high-grade left neal inal narrowing. L4-L5: Broad diffuse posterior disc bulge and bony spurring is present with moderate bilateral facet and ligament hypertrophy. Mild central canal stenosis. High-grade right, moderate left foraminal na rrowing. L5-S1: Broad diffuse posterior disc bulge and bony spurring is present with bulky right and moderate left facet hypertrophy and ligamentum flavum thickening. Mild central canal narrowing. High-grade r ight L5-S1 foraminal stenosis, mild left foraminal narrowing. SACRUM: Visualized upper sacrum intact. OTHER: No other significant findings. IMPRESSION: Diffuse degenerative changes as above. TECHNICAL DOCUMENTATION: JOB ID: [id number] [employer]- All Rights Reserved
== END ==
LOC: RAD 11:01
PROVIDERS: ATTEND Physician Assistant
DX: M54.16 Radiculopathy, lumbar region (principal)
CPT/HCPCS: 72148

== ENCOUNTER 2017-09-03 14:20 | Emergency (ER) | payer MEDICARE, OTHER ==
[2017-09-03] MEDS ORDERED: APIXABAN 5 MG TABLET PO ONE (15:57)
[2017-09-03 16:02] VITALS: BP 147/87
--- NOTE | 2017-09-03 16:02 | ER Document Report ---
ED Extremity Problem, Lower - General Chief Complaint: Leg Swelling Stated Complaint: POSSIBLE BLOOD CLOT Time Seen by Provider: 09/03/17 15:47 Notes: Patient presents from radiology after being instructed that he had a blood clot in his left lower extremity. He states he has noticed some swelling of the last several days and pain in the left lower extremity. He went size primary care doctor who referred him to the radiology department today for an ultrasound. Ultrasound showed a blood clot and they called his primary care physician. His primary care physician, Dr. Gutierres, asked that he be sent to the emergency department. Patient states the pain does radiate up the left leg. It is worse with ambulation better with rest. It is moderate. It is constant. It is a dull ache. He denies any previous history of DVTs or PEs. TRAVEL OUTSIDE OF THE [place] IN LAST 30 DAYS: No - Related Data Allergies/Adverse Reactions: No Known Allergies Allergy (Verified 05/18/17 11:46) Past Medical History - General Information source: Patient - Social History Smoking Status: Former Smoker Chew tobacco use (# tins/day): No Frequency of alcohol use: Heavy Drug Abuse: None Family History: None, Reviewed & Not Pertinent Patient has suicidal ideation: No Patient has homicidal ideation: No - Past Medical History Cardiac Medical History: Reports: Hx Hypercholesterolemia, Hx Hypertension Pulmonary Medical History: Reports: Hx COPD Denies: Hx Tuberculosis Endocrine Medical History: Reports: Hx Diabetes Mellitus Type 2 Renal/ Medical History: Denies: Hx Peritoneal Dialysis GI Medical History: Reports: Hx Gastroesophageal Reflux Disease Psychiatric Medical History: Reports: Hx Depression Past Surgical History: Reports: Hx Orthopedic Surgery - RLE, right carpal tunnel , Hx Tonsillectomy - Immunizations Hx Diphtheria, Pertussis, Tetanus Vaccination: Yes - 2010 Hx Pneumococcal Vaccination: 07/23/12 Review of Systems - Review of Systems Cardiovascular: denies: Chest pain, Palpitations Respiratory: denies: Cough, Short of breath Gastrointestinal: denies: Abdominal pain, Diarrhea, Vomiting Genitourinary: denies: Dysuria, Discharge -: Yes All other systems reviewed and negative Physical Exam - Vital signs Interpretation: Normal - General General appearance: Appears well, Alert - HEENT Head: Normocephalic, Atraumatic Eyes: Normal Pupils: PERRL - Respiratory Respiratory status: No respiratory distress Chest status: Nontender Breath sounds: Normal Chest palpation: Normal - Cardiovascular Rhythm: Regular Heart sounds: Normal auscultation Murmur: No - Abdominal Inspection: Normal Distension: No distension Bowel sounds: Normal Tenderness: Nontender Organomegaly: No organomegaly - Back Back: Normal, Nontender - Extremities General upper extremity: Normal inspection, Nontender, Normal color, Normal ROM , Normal temperature General lower extremity: Tender, Edema, Other - Patient's left lower extremity has 2+ pitting edema with some mild tenderness to palpation.. No: Ann's sign - Neurological Neuro grossly intact: Yes Cognition: Normal Orientation: AAOx4 [place] Coma Scale Eye Opening: Spontaneous [place] Coma Scale Verbal: Oriented [place] Coma Scale Motor: Obeys Commands [place] Coma Scale Total: 15 Speech: Normal Motor strength normal: LUE, RUE, LLE, RLE Sensory: Normal - Psychological Associated symptoms: Normal affect, Normal mood - Skin Skin Temperature: Warm Skin Moisture: Dry Skin Color: Normal Course - Re-evaluation Re-evalutation: 09/03/17 16:[address] Gutierres. He states he recommends that the patient stay in the hospital and be started on oral anticoagulants. He states he recommends this because the patient is an alcoholic and he feels that he is unsafe to go home. I relayed this information to the patient but he states he is not going to stay in the hospital. He states he just will not drink if he goes home. He states he understands the risk of alcohol withdrawal as well as . He states he understands that if he has any types of falls or traumas while on the Eliquis he can from a brain bleed. Patient currently appears of sound mind and judgment and capable of making his own decisions. He does not appear intoxicated at this time. Patient is going to sign AGAINST MEDICAL ADVICE. Discharge - Discharge Clinical Impression: Deep vein thrombosis (DVT) of left lower extremity Qualifiers: Affected thrombotic vein of extremity: femoral Chronicity: unspecified Qualified Code(s): I82.412 - Acute embolism and thrombosis of left femoral vein Condition: Stable Disposition: HOME, SELF-CARE Instructions: DVT Outpatient Treatment ([facility]), Alcohol Withdrawl ([facility]), Chronic Alcoholism ([facility]) Additional Instructions: Please follow-up with Dr. Gutierres as soon as possible Prescriptions: Apixaban [Eliquis 5 mg Tablet] 10 mg PO BID 30 Days #60 tablet Referrals: OSUNKOYA,NIDHI, MD [ACTIVE STAFF] - Follow up tomorrow
== END 2017-09-03 16:09 | disposition left against medical advice (07) ==
LOC: ER 14:20
DX: I82.412 Acute embolism and thrombosis of left femoral vein (principal); M79.89 Other specified soft tissue disorders; M79.605 Pain in left leg; Z87.891 Personal history of nicotine dependence
CPT/HCPCS: 99283; A9270

== ENCOUNTER → 2017-09-03 | Outpatient (CLI) | payer MEDICARE, OTHER ==
--- NOTE | 2017-09-03 14:34 | XCELERA REPORT ---
[address] [address] Lower Extremity Venous Evaluation Name: CARA JULIONTSHAYLEE Malik JR Age: 72 yrs Gender: Male : 1945 Patient Status: Outpatient Patient Location: Study Date: 09/03/2017 01:07 PM Procedure: Color flow and duplex imaging of the veins of the left lower extremity as well as the right Common Femoral vein. Reason For Study: LLE EDEMA Ordering Physician: NIDHI NULL Performed By: Antonieta Johnson Right Sided Venous Evaluation The right common femoral vein is fully compressible. Spontaneous and phasic flow is present in the right common femoral vein. Left Sided Venous Evaluation Abnormal vessel filling, enlarged veins, no compression or Colour flow from the Common Femoral vein to the Peroneal vein. Critical Findings Discussed akil Null. Interpretation Summary Extensive acute DVT in left lower extremity. : NIDHI NULL > Bryant Solorzano
== END ==
LOC: SP 12:59
PROVIDERS: ATTEND Internal Medicine Geriatric Medicine
DX: R60.0 Localized edema (principal)
CPT/HCPCS: 93971

== ENCOUNTER 2017-11-14 19:29 | Inpatient (IN) | payer MEDICARE, OTHER ==
[2017-11-14] MEDS ORDERED: HYDROCODONE/ACETAMINOPHEN 5-325 MG TABLET PO ONE (20:03)
--- NOTE | 2017-11-14 20:23 | ER Document Report ---
ED Fall - General Chief Complaint: Fall Injury Stated Complaint: FALL Time Seen by Provider: 11/14/17 20:13 Notes: 72-year-old male to the emergency department after a fall. States that he lost his balance and fell down landing on his face and right side. Had a bloody nose. Complaining of a headache. Complaining of pain in the right chest and right abdomen. Did not lose consciousness. States he did not have a syncopal episode just simply lost his balance. Patient is a heavy drinker but denies drinking denies any neck pain at this time states that he is on blood thinners at this time for a blood clot in his leg. TRAVEL OUTSIDE OF THE [place] IN LAST 30 DAYS: No - HPI Occurred: Just prior to arrival - Related data Allergies/Adverse Reactions: No Known Allergies Allergy (Verified 05/18/17 11:46) Past Medical History - General Information source: Patient - Social History Smoking Status: Current Every Day Smoker Cigarette use (# per day): Yes Chew tobacco use (# tins/day): No Frequency of alcohol use: Occasional Drug Abuse: None Lives with: Family Family History: None, Reviewed & Not Pertinent Patient has suicidal ideation: No Patient has homicidal ideation: No - Past Medical History Cardiac Medical History: Reports: Hx Hypercholesterolemia, Hx Hypertension Pulmonary Medical History: Reports: Hx COPD Denies: Hx Tuberculosis Endocrine Medical History: Reports: Hx Diabetes Mellitus Type 2 Renal/ Medical History: Denies: Hx Peritoneal Dialysis GI Medical History: Reports: Hx Gastroesophageal Reflux Disease Psychiatric Medical History: Reports: Hx Depression Past Surgical History: Reports: Hx Orthopedic Surgery - RLE, right carpal tunnel , Hx Tonsillectomy - Immunizations Hx Diphtheria, Pertussis, Tetanus Vaccination: Yes - 2010 Hx Pneumococcal Vaccination: 07/23/12 Review of Systems - Review of Systems Constitutional: denies: Fever, Malaise, Weakness EENT: Mouth pain. denies: Tearing, Double vision, Ear pain, Throat pain, Difficulty swallowing Cardiovascular: denies: Chest pain, Palpitations, Heart racing, Syncope, Dizziness, Lightheaded, Edema Respiratory: denies: Cough, Hurts to breathe, Short of breath Gastrointestinal: Abdominal pain. denies: Diarrhea, Nausea, Vomiting Genitourinary: denies: Burning, Dysuria, Discharge Musculoskeletal: Muscle pain. denies: Muscle stiffness, Neck pain Hematologic/Lymphatic: Blood clots, Easy bleeding. denies: Anemia, Easy bruising Physical Exam - Vital signs Vitals: Temp Pulse Resp BP Pulse Ox 97.9 F 71 12 106/61 99 11/14/17 19:35 11/14/17 19:35 11/14/17 19:35 11/14/17 19:35 11/14/17 19:35 Interpretation: Normal - General General appearance: Appears well, Alert - HEENT Head: Normocephalic, Other - Vision has a contusion on the right scalp. Eyes: Normal Pupils: PERRL Nasal: Bloody discharge Mouth/Lips: Other - he has contusion on the right upper lip. There is a right upper incisor is loose with some bleeding of the gums. Mucous membranes: Normal Teeth diagram: 1 - Loose Pharynx: Normal Neck: Normal - Respiratory Respiratory status: No respiratory distress Chest status: Nontender Breath sounds: Normal Chest palpation: Normal - Cardiovascular Rhythm: Regular Heart sounds: Normal auscultation Murmur: No - Abdominal Inspection: Normal Distension: No distension Bowel sounds: Normal Tenderness: Tender. No: Rebound - Tenderness in the right upper quadrant Organomegaly: No organomegaly - Back Back: Normal, Nontender - Extremities General upper extremity: Normal inspection, Nontender, Normal color, Normal ROM , Normal temperature General lower extremity: Normal inspection, Nontender, Normal color, Normal ROM , Normal temperature, Normal weight bearing. No: Ann's sign - Neurological Neuro grossly intact: Yes Cognition: Normal Orientation: AAOx4 [place] Coma Scale Eye Opening: Spontaneous [place] Coma Scale Verbal: Oriented [place] Coma Scale Motor: Obeys Commands [place] Coma Scale Total: 15 Speech: Normal Motor strength normal: LUE, RUE, LLE, RLE Sensory: Normal - Psychological Associated symptoms: Normal affect, Normal mood - Skin Skin Temperature: Warm Skin Moisture: Dry Skin Color: Normal Course - Re-evaluation Re-evalutation: 11/14/17 23:33 Patient with hyponatremia at 118 but does have chronic hyponatremia. Has had sodium levels in the low 20s. Giving IV fluids at this time. CTs all fairly unremarkable for acute injury. Patient is alert and responsive in no acute distress. Wants to go home. At this time will repeat sodium level as long as it is coming up nicely we should be able to discharge if not may need to admit him to the hospital. 11/15/17 00:[address] 11/14/17 20:23 IMPRESSION: 1. No acute intracranial abnormality. 2. Chronic cervical degenerative changes without suggestion of acute malalignment or fracture. Head CT 11/14/17 20:23 IMPRESSION: 1. No acute intracranial abnormality. 2. Chronic cervical degenerative changes without suggestion of acute malalignment or fracture. Abdomen/Pelvis CT 11/14/17 20:24 IMPRESSION: Chest CT: Ground-glass infiltrates in the right lower lobe may suggest chronic interstitial disease or infection or inflammation. Scoliosis and spondylosis. Abdomen and pelvis CT: Cholelithiasis. Diverticulosis coli. Questionable thickening of the sigmoid colon versus nondistention. Is there clinical history of or evidence of inflammatory bowel disease? Scoliosis and spondylosis with lumbar degenerative disc changes. Chest CT 11/14/17 20:24 IMPRESSION: Chest CT: Ground-glass infiltrates in the right lower lobe may suggest chronic interstitial disease or infection or inflammation. Scoliosis and spondylosis. Abdomen and pelvis CT: Cholelithiasis. Diverticulosis coli. Questionable thickening of the sigmoid colon versus nondistention. Is there clinical history of or evidence of inflammatory bowel disease? Scoliosis and spondylosis with lumbar degenerative disc changes. Laboratory 11/14/17 11/14/17 11/14/17 21:00 21:00 21:00 WBC 7.5 RBC 4.95 Hgb 14.7 Hct 40.7 MCV 82 MCH 29.7 MCHC 36.2 H RDW 16.0 H Plt Count 183 Seg Neutrophils % 64.5 Lymphocytes % 26.5 Monocytes % 7.2 Eosinophils % 1.1 Basophils % 0.7 Absolute Neutrophils 4.8 Absolute Lymphocytes 2.0 Absolute Monocytes 0.5 Absolute Eosinophils 0.1 Absolute Basophils 0.1 PT 16.5 H INR 1.27 APTT 35.4 Sodium 118.2 L* Potassium 3.9 Chloride 77 L Carbon Dioxide 27 Anion Gap 14 BUN 11 Creatinine 1.24 Est GFR ( Amer) > 60 Est GFR (Non-Af Amer) 58 L Glucose 128 H Calcium 8.8 Total Bilirubin 1.1 Direct Bilirubin 0.4 Neonat Total Bilirubin Not Reportable Neonat Direct Bilirubin Not Reportable Neonat Indirect Bili Not Reportable AST 60 H ALT 50 Alkaline Phosphatase 88 Total Protein 7.0 Albumin 3.9 Serum Alcohol < 10 Patient is a heavy drinker so likely his hyponatremia is due to his excessive alcohol intake but repeating the potassium and sodium at this time. 11/15/17 00:52 Repeat potassium with sodium still at 118. Uncomfortable discharging at that low level in the setting of his questionable syncopal episode. Will start on a fluid bolus and attempt to contact his primary care doctor who will admit. 11/15/17 00:[address] Null. Awaiting callback at this time. 11/15/17 02:[address] Null. Will admit to observation at this time. - Vital Signs Vital signs: Temp Pulse Resp BP Pulse Ox 97.9 F 71 14 99/64 L 97 11/14/17 19:35 11/14/17 19:35 11/15/17 01:18 11/15/17 01:17 11/15/17 01:18 - Laboratory Result Diagrams: 11/14/17 21:00 11/14/17 23:35 Laboratory results interpreted by me: 11/14/17 11/14/17 11/14/17 21:00 21:00 21:00 MCHC 36.2 H RDW 16.0 H PT 16.5 H Sodium 118.2 L* Chloride 77 L Est GFR (Non-Af Amer) 58 L Glucose 128 H Calcium AST 60 H 11/14/17 23:35 MCHC RDW PT Sodium 118.4 L* Chloride 82 L Est GFR (Non-Af Amer) Glucose Calcium 8.1 L AST Discharge - Discharge Clinical Impression: Hyponatremia, Epistaxis Fall Qualifiers: Encounter type: initial encounter Qualified Code(s): W19.XXXA - Unspecified fall, initial encounter Facial contusion Qualifiers: Encounter type: initial encounter Qualified Code(s): S00.83XA - Contusion of other part of head, initial encounter Condition: Good Disposition: ADMITTED OBSERVATION Admitting Provider: Bhavik Unit Admitted: Telemetry Referrals: NIDHI NULL MD [Primary Care Provider] - Follow up as needed
[2017-11-14] MEDS ORDERED: MORPHINE SULFATE 10 MG/ML INJ IV ONE ×2 (20:25→21:48)
[2017-11-14 21:16] LABS: ABSOLUTE BASOPHILS # (AUTO) 0.1 10^3/uL (0.0-0.2); ABSOLUTE EOSINOPHILS # (AUTO) 0.1 10^3/uL (0.0-0.6); ABSOLUTE MONOCYTES (AUTO) 0.5 10^3/uL (0.1-1.4); ABSOLUTE NEUT (AUTO) 4.8 10^3/uL (1.7-8.2); BASOPHILS % (AUTO) 0.7 % (0-2); EOSINOPHILS % (AUTO) 1.1 % (0-6); HEMATOCRIT 40.7 % (37.9-51.0); HEMOGLOBIN 14.7 g/dL (13.5-17.0); LYMPHOCYTES % (AUTO) 26.5 % (13-45); MEAN CORPUSCULAR HEMOGLOBIN 29.7 pg (27.0-33.4); MEAN CORPUSCULAR HGB CONC 36.2 g/dL (32.0-36.0); MEAN CORPUSCULAR VOLUME 82 fl (80-97); MONOCYTES % (AUTO) 7.2 % (3-13); PLATELET COUNT 183 10^3/uL (150-450); RED BLOOD COUNT 4.95 10^6/uL (4.35-5.55); SEGMENTED NEUTROPHILS % (AUTO) 64.5 % (42-78); TOTAL CELLS COUNTED % (AUTO) 100 %; WHITE BLOOD COUNT 7.5 10^3/uL (4.0-10.5)
[2017-11-14 21:27] LABS: INTERNATIONAL RATION (INR) 1.27; PROTHROMBIN TIME 16.5 SEC (11.4-15.4)
[2017-11-14 21:29] LABS: PARTIAL THROMBOPLASTIN TIME 35.4 SEC (23.5-35.8)
[2017-11-14 21:33] LABS: ALANINE AMINOTRANSFERASE 50 U/L (21-72); ALBUMIN 3.9 g/dL (3.5-5.0); ALKALINE PHOSPHATASE 88 U/L (38-126); ASPARTATE AMINO TRANSFERASE 60 U/L (17-59); BILIRUBIN,DIRECT 0.4 mg/dL (0.0-0.4); BILIRUBIN,TOTAL 1.1 mg/dL (0.2-1.3); BLOOD UREA NITROGEN 11 mg/dL (7-20); CALCIUM 8.8 mg/dL (8.4-10.2); CARBON DIOXIDE 27 mmol/L (22-30); CHLORIDE 77 mmol/L (98-107); GLUCOSE 128 mg/dL (75-110); POTASSIUM 3.9 mmol/L (3.6-5.0)
[2017-11-14 21:34] LABS: ANION GAP 14 (5-19)
[2017-11-14 21:36] LABS: ALCOHOL < 10 mg/dL (NONE DETECTED)
[2017-11-14 21:38] LABS: SODIUM 118.2 mmol/L (137-145)
[2017-11-14] MEDS ORDERED: NORMAL SALINE 1000 ML 1,000 ML IV ONE (21:48)
--- NOTE | 2017-11-14 22:31 | RADIOLOGY REPORT (SQ) ---
EXAM DESCRIPTION: CT HEAD WITHOUT; CT CERVICAL SPINE WITHOUT COMPLETED DATE/TIME: 11/14/2017 10:13 pm REASON FOR STUDY: fall, COMPARISON: 2016. TECHNIQUE: Axial images acquired through the brain and cervical spine without intravenous contrast. Images reviewed with brain, subdural, lung, soft tissue and bone windows. Reconstructed coronal and sagittal MPR images reviewed. Images stored on PACS. All CT scanners at this facility use dose modulation, iterative reconstruction, and/or weight based d osing when appropriate to reduce radiation dose to as low as reasonably achievable (ALARA). [facility]: Dose Right [facility]: CareDose [facility]: Dose Right [facility]: Teradose 4D [facility]: [employer] RADIATION DOSE: CT Rad equipment meets quality standard of care and radiation dose reduction techniq ues were employed. CTDIvol: 53.2 mGy. DLP: 1097 mGy-cm.; CT Rad equipment meets quality standard of c are and radiation dose reduction techniques were employed. CTDIvol: 21.0 mGy. DLP: 387 mGy-cm. mGy. LIMITATIONS: None. FINDINGS: Brain No hemorrhage or mass or shift. No developing hydrocephalus. Orbits intact. Clear paranasal sinuse s. Intact bones. Cervical spine Multilevel disc and facet disease. Minimal degenerative anterolisthesis at C2-3 and C7-T1. No soft tissue pathology. Lung apices clear. No fracture. IMPRESSION: 1. No acute intracranial abnormality. 2. Chronic cervical degenerative changes without suggestion of acute malalignment or fracture. TECHNICAL DOCUMENTATION: JOB ID: [id number] Quality ID # [id number]: Final reports with documentation of one or more dose reduction techniques (e.g., Au tomated exposure control, adjustment of the mA and/or kV according to patient size, use of iterative reconstruction technique) 2010 [employer]- All Rights Reserved Reading location - IP/workstation name: [email or web address]
--- NOTE | 2017-11-14 22:39 | RADIOLOGY REPORT (SQ) ---
EXAM DESCRIPTION: CT ABD/PELVIS WITH IV ONLY; CT CHEST WITH COMPLETED DATE/TIME: 11/14/2017 10:13 pm REASON FOR STUDY: fall,; fall COMPARISON: 09/15/2016 CONTRAST TYPE AND DOSE: contrast/concentration: Isovue 370.00 mg/ml; Total Contrast Delivered: 79.0 ml; Total Saline Delivered: 38.0 ml RENAL FUNCTION: Not recorded. TECHNIQUE: CT scan of the chest performed using helical scanning technique with dynamic intravenous contrast injection. Images reviewed with lung, soft tissue and bone windows. Reconstructed coronal a nd sagittal MPR images reviewed. All images stored on PACS. CT scan of the abdomen and pelvis performed with intravenous and oral contrast using helical scanning technique with dynamic intravenous contrast injection. Images reviewed with lung, soft tissue and b one windows. Reconstructed coronal and sagittal MPR images reviewed. Delayed images for evaluation of the urinary system also acquired and evaluated. All images stored on PACS. All CT scanners at this facility use dose modulation, iterative reconstruction, and/or weight based d osing when appropriate to reduce radiation dose to as low as reasonably achievable (ALARA). [facility]: Dose Right [facility]: CareDose [facility]: Dose Right [facility]: Teradose 4D [facility]: [employer] RADIATION DOSE: CT Rad equipment meets quality standard of care and radiation dose reduction techniq ues were employed. CTDIvol: 15.4 - 17.4 mGy. DLP: 1903 mGy-cm. . LIMITATIONS: None. FINDINGS: CHEST: AXILLAE: No adenopathy. CHEST WALL: No masses. No subcutaneous air. LUNGS: No nodules. No pneumothorax. Ground-glass infiltrates in the right lower lobe. PLEURA: No effusions. No calcifications. THYROID: No masses or significant asymmetry. HILAR AND MEDIASTINAL STRUCTURES: No identified masses or abnormal nodes. AORTA AND GREAT VESSELS: No aneurysm. No dissection. PULMONARY ARTERIES: No identified pulmonary emboli. Study not optimized for the pulmonary arteries. HEART: No pericardial effusion. HARDWARE AND LIFELINES: None. BONES: Scoliosis and spondylosis. No acute findings. Lumbar degenerative disc changes. OTHER: No other significant finding. ABDOMEN AND PELVIS: LIVER: Normal size. No masses. No dilated ducts. SPLEEN: Normal size. No focal lesions. PANCREAS: No masses. No significant calcifications. No adjacent inflammation or peripancreatic flui d collections. Pancreatic duct not dilated. GALLBLADDER: A single 10 mm gallstone is present. ADRENAL GLANDS: No significant masses or asymmetry. RIGHT KIDNEY AND URETER: No solid masses. No significant calcifications. No hydronephrosis or hyd roureter. LEFT KIDNEY AND URETER: No solid masses. No significant calcifications. No hydronephrosis or hydr oureter. AORTA AND VESSELS: No aneurysm. No dissection. Renal arteries, SMA, celiac without stenosis. RETROPERITONEUM: No retroperitoneal adenopathy, hemorrhage or masses. LARGE AND SMALL BOWEL: Sigmoid diverticulosis. There is questionable thickening of the wall of the s igmoid. No pericolonic inflammatory changes are present. APPENDIX: Not identified. ABDOMINAL WALL: No hernia or masses. PERITONEAL CAVITY: No free air. No free fluid. No peritoneal implants or masses. PELVIS: No mass or free fluid. Normal bladder. BONES: Scoliosis and spondylosis. Lumbar degenerative disc changes. OTHER: None IMPRESSION: Chest CT: Ground-glass infiltrates in the right lower lobe may suggest chronic intersti tial disease or infection or inflammation. Scoliosis and spondylosis. Abdomen and pelvis CT: Cholelithiasis. Diverticulosis coli. Questionable thickening of the sigmoid colon versus nondistention. Is there clinical history of or evidence of inflammatory bowel disease? Scoliosis and spondylosis with lumbar degenerative disc changes. TECHNICAL DOCUMENTATION: JOB ID: [id number] Quality ID # [id number]: Final reports with documentation of one or more dose reduction techniques (e.g., Au tomated exposure control, adjustment of the mA and/or kV according to patient size, use of iterative reconstruction technique) 2010 [employer]- All Rights Reserved Reading location - IP/workstation name: [email or web address]
[2017-11-15] LABS: ANION GAP 7 (5-19); BLOOD UREA NITROGEN 11 mg/dL (7-20); CALCIUM 8.1 mg/dL (8.4-10.2); CARBON DIOXIDE 29 mmol/L (22-30); CHLORIDE 82 mmol/L (98-107); GLUCOSE 104 mg/dL (75-110); POTASSIUM 3.9 mmol/L (3.6-5.0)
[2017-11-15 00:21] LABS: SODIUM 118.4 mmol/L (137-145)
[2017-11-15] MEDS ORDERED: NORMAL SALINE 1000 ML 1,000 ML IV ONE (01:08)
[2017-11-15] MEDS ORDERED: INSULIN LISPRO 100 UNIT/ML 3 ML VIAL SUBCUT PRN (05:00)
[2017-11-15] MEDS ORDERED: DEXTROSE 40% GEL 15 GM TUBE X 2 PO PRN (05:00)
[2017-11-15] MEDS ORDERED: GLUCAGON,HUMAN RECOMB 1 MG INJ IM PRN (05:00)
[2017-11-15] MEDS ORDERED: DEXTROSE 40% GEL 15 GM TUBE PO PRN (05:00)
[2017-11-15] MEDS ORDERED: DEXTROSE 50%-WATER SYRINGE 25 GM/50 ML DOSE IV PRN (05:00)
[2017-11-15] MEDS ORDERED: DEXTROSE 50%-WATER SYRINGE 12.5 GM/25 ML DOSE IV PRN (05:00)
[2017-11-15] MEDS ORDERED: HYDROXYZINE PAMOATE 50 MG CAPSULE PO PRN (05:14)
[2017-11-15] MEDS ORDERED: OXYCODONE-ACETAMINOPHEN 5-325 MG TABLET PO PRN ×2 (05:14→08:21)
[2017-11-15] MEDS ORDERED: DIAZEPAM 5 MG TABLET PO PRN (05:14)
[2017-11-15] MEDS ORDERED: ONDANSETRON 4 MG TAB.RAPDIS PO SCH (05:15)
[2017-11-15] MEDS ORDERED: ONDANSETRON 4 MG TAB.RAPDIS PO PRN ×2 (06:23→06:24)
[2017-11-15] MEDS: LANSOPRAZOLE 30 MG TAB.RAP.DR PO SCH (06:52)
--- NOTE | 2017-11-15 08:37 | PDOC H&P ---
History of Present Illness Admission Date/PCP: 11/15/17 02:14 NIDHI NULL Patient complains of: Fall with right chest and abdominal pain History of Present Illness: DONA JULIO JR is a 72 year old male known to my practice presented to the ED with complain of fall while walking in his drive way en route to Alcohol Anonymous meeting. He reported incident occurred around 6:30pm. He denied preceding chest pain of fluttering of his heart. He denied alcohol consumption recently. He claimed that he simply lost his balance. He denied any dizziness or loss of consciousness. His initial in the Ed was remarkable for soft tissue injury to his face from contusion, loss of right incisor tooth and bleeding. His laboratory evaluation revealed significant hyponatremia and alcohol level less than 10. He was advised admission to observation bed due to significant hyponatremia in light of his fall and other morbidities. His morbidities include diabetes mellitus type 2, HTN, HLD, COPD, GERD, Depression, and alcohol abuse. Past Medical History Cardiac Medical History: Reports: Hyperlipidema, Hypertension Pulmonary Medical History: Reports: Chronic Obstructive Pulmonary Disease (COPD) Denies: Tuberculosis Endocrine Medical History: Reports: Diabetes Mellitus Type 2 GI Medical History: Reports: Gastroesophageal Reflux Disease Psychiatric Medical History: Reports: Depression Past Surgical History Past Surgical History: Reports: Orthopedic Surgery - RLE, right carpal tunnel, Tonsillectomy Social History Lives with: Family Smoking Status: Current Every Day Smoker Cigarettes Packs Per Day: 1 Number of Years Smokin Frequency of Alcohol Use: Occasional Hx Recreational Drug Use: No Drugs: None Hx Prescription Drug Abuse: No - Advance Directive Resuscitation Status: Full Code Family History Family History: None, Reviewed & Not Pertinent Parental Family History Reviewed: Yes Children Family History Reviewed: Yes Sibling(s) Family History Reviewed.: Yes Medication/Allergy Home Medications: Doxazosin Mesylate [Cardura 4 mg Tablet] 4 mg PO DAILY 10/30/16 Esomeprazole Magnesium [Nexium] 40 mg PO DAILY 10/30/16 Ezetimibe [Zetia 10 mg Tablet] 10 mg PO DAILY 10/30/16 Loratadine [Claritin 10 mg Tablet] 10 mg PO DAILY 10/30/16 Pioglitazone HCl [Actos] 45 mg PO DAILY 10/30/16 Risperidone [Risperdal] 2 mg PO QHS 10/30/16 Sitagliptin Phos/Metformin HCl [Janumet 50-1,000 mg Tablet] 1 each PO BID Telmisartan/Hydrochlorothiazid [Micardis HCT 40-12.5 mg Tablet] 1 each PO DAILY 10/30/16 Trazodone HCl [Desyrel] 150 mg PO QHS 10/30/16 Diazepam [Valium 5 mg Tablet] 5 mg PO QIDP PRN #15 tablet 12/14/16 Amlodipine Besylate 5 mg PO DAILY 03/28/17 Exenatide Microspheres [Bydureon Pen] 2 mg SQ DAILY 03/28/17 Furosemide [Lasix 20 mg Tablet] 20 mg PO QAM 03/28/17 Gabapentin Enacarbil [Horizant] 600 mg PO DAILY 03/28/17 Hydroxyzine Pamoate 50 mg PO QID PRN 03/28/17 Travoprost (Benzalkonium) [Travatan 0.004% Eye Drop] 5 ml OP DAILY 03/28/17 Potassium Chloride [Klor-Con M20] 40 meq PO DAILY #8 tab.er.prt 05/18/17 Apixaban [Eliquis 5 mg Tablet] 10 mg PO BID 11/15/17 Oxycodone HCl/Acetaminophen [Percocet 5-325 mg Tablet] 1 - 2 tab PO Q4HP PRN Allergies/Adverse Reactions: No Known Allergies Allergy (Verified 05/18/17 11:46) Review of Systems Constitutional: PRESENT: headache(s) Eyes: PRESENT: visual disturbances - correction of acuty with glasses Ears: PRESENT: hearing changes - hearing impaired Nose, Mouth, and Throat: PRESENT: headache(s), mouth pain - from trauma and loss of right incisor Cardiovascular: PRESENT: chest pain - Right sided follow fall with blunt trauma Respiratory: ABSENT: as per HPI, cough, dyspnea, hemoptysis, sputum, other Gastrointestinal: PRESENT: abdominal pain - Right upper region following blunt trauma Genitourinary: ABSENT: dysuria, hematuria Musculoskeletal: PRESENT: back pain - chronic due to degenerative disc disease Neurological: PRESENT: abnormal gait - ambulate with straight cane assistance, lack of coordination - related to his longstanding alcohol abuse, tremor(s) - related to his longstanding alcohol abuse Psychiatric: ABSENT: anxiety, depression, homidical ideation, suicidal ideation Endocrine: ABSENT: cold intolerance, heat intolerance, polydipsia, polyuria Hematologic/Lymphatic: ABSENT: easy bleeding, easy bruising, lymphadenopathy Allergic/Immunologic: ABSENT: seasonal rhinorrhea Physical Exam Vital Signs: Temp Pulse Resp BP Pulse Ox 97.4 F 48 L 16 110/65 100 11/15/17 04:06 11/15/17 04:06 11/15/17 04:06 11/15/17 04:06 11/15/17 04:06 Intake & Output 11/14/17 11/15/17 11/16/17 06:59 06:59 06:59 Intake Total 500 Balance 500 Weight 72.5 kg General appearance: PRESENT: no acute distress, well-developed, well-nourished Head exam: PRESENT: atraumatic - to right side of head frontotemporal region Eye exam: PRESENT: conjunctiva pink, EOMI, PERRLA. ABSENT: scleral icterus Ear exam: PRESENT: normal external ear exam Mouth exam: PRESENT: moist, tongue midline Teeth exam: PRESENT: other - loss of right upper incisor Throat exam: ABSENT: post pharyngeal erythema, tonsillar erythema, tonsillar exudate, tonsillogmegaly, other Neck exam: PRESENT: full ROM. ABSENT: carotid bruit, JVD, lymphadenopathy, thyromegaly Respiratory exam: PRESENT: clear to auscultation yahir Cardiovascular exam: PRESENT: RRR. ABSENT: diastolic murmur, rubs, systolic murmur Pulses: PRESENT: +2 pedal pulses bilateral Vascular exam: PRESENT: normal capillary refill. ABSENT: pallor GI/Abdominal exam: PRESENT: normal bowel sounds, soft, tenderness - right upper region aroun lower ribs to palpation.. ABSENT: distended, guarding, mass, organolmegaly, rebound Rectal exam: PRESENT: deferred Extremities exam: ABSENT: pedal edema Musculoskeletal exam: PRESENT: deformity - related to multiple joints involvement with arthritis Neurological exam: PRESENT: alert, awake, oriented to person, oriented to place , oriented to time, oriented to situation, CN II-XII grossly intact. ABSENT: motor sensory deficit Psychiatric exam: PRESENT: appropriate affect, normal mood. ABSENT: homicidal ideation, suicidal ideation Skin exam: PRESENT: abrasion - right frontotemporal region of his head, dry, warm. ABSENT: cyanosis, rash Results Laboratory Results: I reviewed his lab results on [facility] and form significant part of my medical decision making. 11/15/17 02:15 Troponin I < 0.012 Impressions: Cervical Spine CT 11/14/17 20:23 IMPRESSION: 1. No acute intracranial abnormality. 2. Chronic cervical degenerative changes without suggestion of acute malalignment or fracture. Head CT 11/14/17 20:23 IMPRESSION: 1. No acute intracranial abnormality. 2. Chronic cervical degenerative changes without suggestion of acute malalignment or fracture. Abdomen/Pelvis CT 11/14/17 20:24 IMPRESSION: Chest CT: Ground-glass infiltrates in the right lower lobe may suggest chronic interstitial disease or infection or inflammation. Scoliosis and spondylosis. Abdomen and pelvis CT: Cholelithiasis. Diverticulosis coli. Questionable thickening of the sigmoid colon versus nondistention. Is there clinical history of or evidence of inflammatory bowel disease? Scoliosis and spondylosis with lumbar degenerative disc changes. Chest CT 11/14/17 20:24 IMPRESSION: Chest CT: Ground-glass infiltrates in the right lower lobe may suggest chronic interstitial disease or infection or inflammation. Scoliosis and spondylosis. Abdomen and pelvis CT: Cholelithiasis. Diverticulosis coli. Questionable thickening of the sigmoid colon versus nondistention. Is there clinical history of or evidence of inflammatory bowel disease? Scoliosis and spondylosis with lumbar degenerative disc changes. Assessment & Plan - Diagnosis (1) Fall Qualifiers: Encounter type: initial encounter Qualified Code(s): W19.XXXA - Unspecified fall, initial encounter Is this a current diagnosis for this admission?: Yes Plan: See admitting attending physician orders. (2) Facial contusion Qualifiers: Encounter type: initial encounter Qualified Code(s): S00.83XA - Contusion of other part of head, initial encounter Is this a current diagnosis for this admission?: Yes Plan: See admitting attending physician orders. (3) Hyponatremia Is this a current diagnosis for this admission?: Yes Plan: See admitting attending physician orders. (4) Diabetes mellitus type 2 in obese Is this a current diagnosis for this admission?: Yes Plan: See admitting attending physician orders. (5) HTN (hypertension) Qualifiers: Hypertension type: essential hypertension Is this a current diagnosis for this admission?: Yes Plan: See admitting attending physician orders. (6) HLD (hyperlipidemia) Qualifiers: Hyperlipidemia type: pure hypercholesterolemia Qualified Code(s): E78.00 - Pure hypercholesterolemia, unspecified Is this a current diagnosis for this admission?: Yes Plan: See admitting attending physician orders. (7) GERD (gastroesophageal reflux disease) Qualifiers: Esophagitis presence: without esophagitis Qualified Code(s): K21.9 - Gastro -esophageal reflux disease without esophagitis Is this a current diagnosis for this admission?: Yes Plan: See admitting attending physician orders. - Time Time Spent: 50 to 70 Minutes Medications reviewed and adjusted accordingly: Yes Anticipated discharge: Home Within: within 48 hours - Plan Summary Plan Summary: See admitting attending physician orders.
[2017-11-15] MEDS: SITAGLIPTIN PHOSPHATE 50 MG TABLET PO SCH ×2 (08:47→18:07)
[2017-11-15] MEDS: METFORMIN HCL 500 MG TABLET PO SCH ×2 (08:47→18:08)
[2017-11-15] MEDS ORDERED: FUROSEMIDE 20 MG TABLET PO ONE (09:30)
[2017-11-15] MEDS ORDERED: METRONIDAZOLE 500 MG TABLET PO SCH (10:00)
[2017-11-15] MEDS ORDERED: CIPROFLOXACIN HCL 500 MG TABLET PO SCH (10:00)
[2017-11-15] MEDS ORDERED: DICYCLOMINE HCL 10 MG CAPSULE PO SCH (10:00)
[2017-11-15] MEDS ORDERED: HYDROCHLOROTHIAZIDE 12.5 MG CAPSULE PO SCH (10:00)
[2017-11-15] MEDS ORDERED: TRAVOPROST OP SCH (10:00)
[2017-11-15] MEDS ORDERED: (PENDING PHARMACY ID) (Exenatide Microspheres [Bydureon Pen] 2 MG) SQ SCH (10:00)
[2017-11-15] MEDS: DOXAZOSIN MESYLATE 4 MG TABLET PO SCH (10:09)
[2017-11-15] MEDS: LORATADINE 10 MG TABLET PO SCH (10:10)
[2017-11-15] MEDS: APIXABAN 5 MG TABLET PO SCH ×2 (10:10→18:09)
[2017-11-15] MEDS: LOSARTAN POTASSIUM 50 MG TABLET PO SCH (10:10)
[2017-11-15] MEDS: POTASSIUM CHLORIDE 10 MEQ TABLET.SA PO SCH (10:11)
[2017-11-15] MEDS: AMLODIPINE BESYLATE 5 MG TABLET PO SCH (10:11)
[2017-11-15] MEDS: HORIZANT 600 MG PO SCH (10:12)
[2017-11-15] MEDS: EZETIMIBE 10 MG TABLET PO SCH (10:13)
[2017-11-15] MEDS: PIOGLITAZONE HCL 15 MG TABLET PO SCH (10:14)
[2017-11-15] MEDS: NORMAL SALINE 1000 ML 1,000 ML IV PRN (10:21)
[2017-11-15 11:20] LABS: ANION GAP 9 (5-19); BLOOD UREA NITROGEN 11 mg/dL (7-20); CALCIUM 8.6 mg/dL (8.4-10.2); CARBON DIOXIDE 31 mmol/L (22-30); CHLORIDE 87 mmol/L (98-107); CHOLESTEROL 148.47 mg/dL (0-200); GLUCOSE 135 mg/dL (75-110); POTASSIUM 3.7 mmol/L (3.6-5.0); SODIUM 127.2 mmol/L (137-145); TRIGLYCERIDES 117 mg/dL (<150)
[2017-11-15 11:31] LABS: DIRECT LDL 96 mg/dL (<100)
[2017-11-15] MEDS: OXYCODONE-ACETAMINOPHEN 5-325 MG TABLET PO PRN ×2 (14:01→18:08)
[2017-11-15 14:29] LABS: OSMOLALITY,URINE 117 mOsm/kg (300-900)
[2017-11-15 14:34] LABS: URINE SODIUM 10 mmol/L (30-90)
[2017-11-15] MEDS ORDERED: RISPERIDONE 1 MG TABLET PO SCH (22:00)
[2017-11-15] MEDS ORDERED: TRAZODONE HCL 50 MG TABLET PO SCH (22:00)
[2017-11-15] MEDS ORDERED: LATANOPROST 0.005% OPH SOLN 2.5 ML OU SCH (22:00)
[2017-11-16] MEDS: NORMAL SALINE 1000 ML 1,000 ML IV PRN (01:35)
[2017-11-16] MEDS: LANSOPRAZOLE 30 MG TAB.RAP.DR PO SCH (06:08)
[2017-11-16] MEDS: METFORMIN HCL 500 MG TABLET PO SCH ×2 (07:48→16:52)
[2017-11-16] MEDS: OXYCODONE-ACETAMINOPHEN 5-325 MG TABLET PO PRN ×3 (07:48→16:52)
[2017-11-16] MEDS ORDERED: FUROSEMIDE 20 MG TABLET PO SCH (08:00)
[2017-11-16] MEDS: SITAGLIPTIN PHOSPHATE 50 MG TABLET PO SCH ×2 (09:01→16:53)
[2017-11-16] MEDS: LOSARTAN POTASSIUM 50 MG TABLET PO SCH (09:06)
[2017-11-16] MEDS: DOXAZOSIN MESYLATE 4 MG TABLET PO SCH (09:06)
[2017-11-16] MEDS: POTASSIUM CHLORIDE 10 MEQ TABLET.SA PO SCH (09:07)
[2017-11-16] MEDS: AMLODIPINE BESYLATE 5 MG TABLET PO SCH (09:07)
[2017-11-16] MEDS: PIOGLITAZONE HCL 15 MG TABLET PO SCH (09:08)
[2017-11-16] MEDS: EZETIMIBE 10 MG TABLET PO SCH (09:08)
[2017-11-16] MEDS: HORIZANT 600 MG PO SCH (09:09)
[2017-11-16] MEDS: LORATADINE 10 MG TABLET PO SCH (09:10)
[2017-11-16 09:44] LABS: ANION GAP 8 (5-19); BLOOD UREA NITROGEN 10 mg/dL (7-20); CALCIUM 8.6 mg/dL (8.4-10.2); CARBON DIOXIDE 26 mmol/L (22-30); CHLORIDE 99 mmol/L (98-107); GLUCOSE 110 mg/dL (75-110); POTASSIUM 4.3 mmol/L (3.6-5.0); SODIUM 132.9 mmol/L (137-145)
[2017-11-16] MEDS ORDERED: NICOTINE 21 MG/24 HR PATCH.TD24 TD SCH (10:00)
[2017-11-16] MEDS ORDERED: APIXABAN 5 MG TABLET PO SCH (10:00)
--- NOTE | 2017-11-16 15:34 | PDOC DISCHARGE SUMMARY ---
General - Admit/Disc Date/PCP Admission Date/Primary Care Provider: 11/15/17 02:14 NIDHI NULL Discharge Date: 11/16/17 - Discharge Diagnosis (1) Fall Is this a current diagnosis for this admission?: Yes Summary: Referral will be made for home health agency physical therapy for home safety check upon discharge. (2) Facial contusion Is this a current diagnosis for this admission?: Yes Summary: Improving. He will follow up with his dentist, for further evaluation of dental loss due to his recent fall. (3) Hyponatremia Is this a current diagnosis for this admission?: Yes Summary: Significant improvement since admission. Evaluation suggestive of SIADH but low urine sodium may be due to normal saline treatment preceding his specimen collection. Other consideration include his chronic alcoholism with intermittent loss during period of acute alcohol abuse. (4) Diabetes mellitus type 2 in obese Is this a current diagnosis for this admission?: Yes (5) HTN (hypertension) Is this a current diagnosis for this admission?: Yes (6) HLD (hyperlipidemia) Is this a current diagnosis for this admission?: Yes (7) GERD (gastroesophageal reflux disease) Is this a current diagnosis for this admission?: Yes (8) Chronic alcohol abuse Is this a current diagnosis for this admission?: Yes Summary: Extensive counseling was done since admission. Patient deferred to continue Alcohol anonymous attendance for support. He claimed that abuse has been a life long problem for him. His chronic alcohol abuse may be a contributing factor to his hyponatremia. (9) Deep vein thrombosis (DVT) of left lower extremity Is this a current diagnosis for this admission?: Yes Summary: Maintain on Eliquis 5 mg po bid. - Additional Information Resuscitation Status: Full Code Prescriptions: Apixaban [Eliquis 5 mg Tablet] 5 mg PO BID #60 tablet Nicotine [Nicoderm 21 mg/24 Hr Transderm Patch] 1 each TD DAILY #30 patch.td24 Home Medications: Acamprosate Calcium 333 mg PO TID 11/15/17 Amlodipine Besylate [Norvasc 5 mg Tablet] 5 mg PO DAILY 11/15/17 Apixaban [Eliquis 5 mg Tablet] 5 mg PO BID 11/15/17 Doxazosin Mesylate [Cardura 4 mg Tablet] 4 mg PO DAILY 11/15/17 Esomeprazole Mag Trihydrate [Nexium] 40 mg PO Q6AM 11/15/17 Exenatide Microspheres [Bydureon Pen] 2 mg SQ .WEEKLY 11/15/17 Ezetimibe [Zetia 10 mg Tablet] 10 mg PO DAILY 11/15/17 Fluticasone/Salmeterol [Advair 250-50 Diskus 28 dose] 1 inh IH Q12 11/15/17 Furosemide [Lasix 20 mg Tablet] 20 mg PO QAM 11/15/17 Gabapentin Enacarbil [Horizant] 600 mg PO DAILY 11/15/17 Hydrocodone/Acetaminophen [Rising Sun 5-325 mg Tablet] 1 tab PO BIDP PRN 11/15/17 Hydroxyzine Pamoate [Vistaril 50 mg Capsule] 50 mg PO Q6HP PRN 11/15/17 Insulin Detemir [Levemir Flextouch] 0 unit SQ .CLARIFY 11/15/17 Insulin Lispro [Humalog Kwikpen U-100] 0 unit SQ .SLIDING SCALE 11/15/17 Loratadine [Claritin 10 mg Tablet] 10 mg PO DAILY 11/15/17 Pioglitazone HCl [Actos] 45 mg PO QAM 11/15/17 Risperidone [Risperdal] 2 mg PO QHS 11/15/17 Rosuvastatin Calcium [Crestor] 5 mg PO DAILY 11/15/17 Sitagliptin Phos/Metformin HCl [Janumet 50-1,000 mg Tablet] 1 each PO BID Telmisartan/Hydrochlorothiazid [Micardis Hct 40-12.5 mg Tablet] 1 each PO DAILY 11/15/17 Testosterone Cypionate 200 mg IM [id number] 11/15/17 Timolol Maleate [Timoptic 0.5% Oph Soln 5 ml] 1 drop OU BID 11/15/17 Travoprost [Travatan Z] 1 drop OU QHS 11/15/17 Trazodone HCl [Desyrel] 150 mg PO QHS 11/15/17 Apixaban [Eliquis 5 mg Tablet] 5 mg PO BID #60 tablet 11/16/17 Nicotine [Nicoderm 21 mg/24 Hr Transderm Patch] 1 each TD DAILY #30 patch.td24 11/16/17 History of Present Illness History of Present Illness: DONA JULIO JR is a 72 year old male known to my practice presented to the ED with complain of fall while walking in his drive way en route to Alcohol Anonymous meeting. He reported incident occurred around 6:30pm. He denied preceding chest pain of fluttering of his heart. He denied alcohol consumption recently. He claimed that he simply lost his balance. He denied any dizziness or loss of consciousness. His initial in the Ed was remarkable for soft tissue injury to his face from contusion, loss of right incisor tooth and bleeding. His laboratory evaluation revealed significant hyponatremia and alcohol level less than 10. He was advised admission to observation bed due to significant hyponatremia in light of his fall and other morbidities. His morbidities include diabetes mellitus type 2, HTN, HLD, COPD, GERD, Depression, and alcohol abuse. Hospital Course Hospital Course: Patient was appropriately treated with IV Normal saline infusion. He remain on his preadmission oral Lasix therapy. His hyponatremia did show significant response and improvement. He was walking without any significant gait problem. He continue to demonstrate right upper extremity tremor. His CT scan of brain was reported without any acute pathology. Patient insisted upon discharge home today due to important pre-scheduled appointment for tomorrow morning that he will not expatiate upon. He will follow up in the office as instructed upon discharge. Physical Exam Vital Signs: Temp Pulse Resp BP Pulse Ox 97.1 F 59 L 13 96/59 L 95 11/16/17 11:49 11/16/17 11:49 11/16/17 11:49 11/16/17 11:49 11/16/17 11:49 Intake & Output 11/15/17 11/16/17 11/17/17 06:59 06:59 06:59 Intake Total 500 4187 474 Balance 500 4187 474 Weight 72.5 kg 71.2 kg General appearance: PRESENT: no acute distress, well-developed, well-nourished Head exam: PRESENT: other - resolving right upper lip swelling and abrassion over right frontotemopral region. Eye exam: PRESENT: conjunctiva pink, EOMI, PERRLA. ABSENT: scleral icterus Mouth exam: PRESENT: moist Teeth exam: PRESENT: other - right upper incisor injury Respiratory exam: PRESENT: clear to auscultation yahir Cardiovascular exam: PRESENT: RRR. ABSENT: diastolic murmur, rubs, systolic murmur Vascular exam: PRESENT: normal capillary refill. ABSENT: pallor GI/Abdominal exam: PRESENT: normal bowel sounds, soft. ABSENT: distended, guarding, mass, organolmegaly, rebound, tenderness Extremities exam: ABSENT: pedal edema Musculoskeletal exam: PRESENT: deformity - related to multiple joints involvement with arthritis Neurological exam: PRESENT: alert, awake, oriented to person, oriented to place , oriented to time, oriented to situation, CN II-XII grossly intact. ABSENT: motor sensory deficit Psychiatric exam: PRESENT: appropriate affect, normal mood. ABSENT: homicidal ideation, suicidal ideation Skin exam: PRESENT: abrasion - over right frontotemoparal region, dry, warm Results Laboratory Results: 11/16/17 09:09 11/16/17 09:09 Sodium 132.9 L Potassium 4.3 Chloride 99 Carbon Dioxide 26 Anion Gap 8 BUN 10 Creatinine 0.89 Est GFR ( Amer) > 60 Est GFR (Non-Af Amer) > 60 Glucose 110 Calcium 8.6 11/15/17 02:15 Troponin I < 0.012 Impressions: Cervical Spine CT 11/14/17 20:23 IMPRESSION: 1. No acute intracranial abnormality. 2. Chronic cervical degenerative changes without suggestion of acute malalignment or fracture. Head CT 11/14/17 20:23 IMPRESSION: 1. No acute intracranial abnormality. 2. Chronic cervical degenerative changes without suggestion of acute malalignment or fracture. Abdomen/Pelvis CT 11/14/17 20:24 IMPRESSION: Chest CT: Ground-glass infiltrates in the right lower lobe may suggest chronic interstitial disease or infection or inflammation. Scoliosis and spondylosis. Abdomen and pelvis CT: Cholelithiasis. Diverticulosis coli. Questionable thickening of the sigmoid colon versus nondistention. Is there clinical history of or evidence of inflammatory bowel disease? Scoliosis and spondylosis with lumbar degenerative disc changes. Chest CT 11/14/17 20:24 IMPRESSION: Chest CT: Ground-glass infiltrates in the right lower lobe may suggest chronic interstitial disease or infection or inflammation. Scoliosis and spondylosis. Abdomen and pelvis CT: Cholelithiasis. Diverticulosis coli. Questionable thickening of the sigmoid colon versus nondistention. Is there clinical history of or evidence of inflammatory bowel disease? Scoliosis and spondylosis with lumbar degenerative disc changes. Qualifiers - * PATIENT BEING DISCHARGED WITH ANY OF THE FOLLOWING DIAGNOSIS: No Plan Discharge Plan: Discharge home today. Follow up in the office as instructed upon discharge.
[2017-11-16 15:43] VITALS: BP 110/65
== END 2017-11-16 17:15 | disposition home health service (06) | DRG 641 ==
LOC: ER 19:29 → EH 11-15 02:14 → OBSVTOIN 11-15 02:14 → 3W 11-15 03:39
PROVIDERS: ADMIT Internal Medicine Geriatric Medicine; ATTEND Internal Medicine Geriatric Medicine
DX: E87.1 Hypo-osmolality and hyponatremia (principal); I82.402 Acute embolism and thrombosis of unspecified deep veins of left lower extremity; E11.65 Type 2 diabetes mellitus with hyperglycemia; I10 Essential (primary) hypertension; E66.9 Obesity, unspecified; Z68.25 Body mass index [BMI] 25.0-25.9, adult; K21.9 Gastro-esophageal reflux disease without esophagitis; Y90.0 Blood alcohol level of less than 20 mg/100 ml; E78.00 Pure hypercholesterolemia, unspecified; J44.9 Chronic obstructive pulmonary disease, unspecified; F32.9 Major depressive disorder, single episode, unspecified; S00.83XA Contusion of other part of head, initial encounter; W01.0XXA Fall on same level from slipping, tripping and stumbling without subsequent striking against object, initial encounter; Y93.01 Activity, walking, marching and hiking; F17.210 Nicotine dependence, cigarettes, uncomplicated; M41.9 Scoliosis, unspecified; K80.20 Calculus of gallbladder without cholecystitis without obstruction; F10.20 Alcohol dependence, uncomplicated; Y92.014 Private driveway to single-family (private) house as the place of occurrence of the external cause; Z79.4 Long term (current) use of insulin; Z79.899 Other long term (current) drug therapy
CPT/HCPCS: 36415; 70450; 71260; 72125; 74177; 80048; 80053; 80061; 80307; 82962; 83930; 83935; 84300; 84484; 85025; 85610; 85730; 96361; 96374; 96376; 99284; G0378; J2270; J3490; J7030

== ENCOUNTER 2017-11-25 19:50 | Emergency (ER) | payer MEDICARE, OTHER ==
[2017-11-25 19:59] VITALS: BP 154/78
[2017-11-25] MEDS ORDERED: ACETAMINOPHEN 325 MG TABLET PO ONE (20:27)
--- NOTE | 2017-11-25 20:35 | ER Document Report ---
HPI - HPI Pain Level: 4 Notes: Patient is a 72-year-old male with a pmh of diabetes mellitus type 2, HTN, HLD, COPD, GERD, Depression, and alcohol abuse who presents to the ED complaining of continued right lower rib pain on the lateral side since his fall. Patient states that he has had pain in this area since the fall and had a workup performed in the emergency department. Patient states that he was admitted to the hospital for a few days and discharge. Patient states he ran out of his [place] and his pain started increasing again. Patient states that he is otherwise eating and drinking without difficulties. He is urinating normally and having normal bowel movements. Patient states that he otherwise feels well aside from the sharp pain that is worsened with touch on the right side. He denies any drug allergies. Patient did have a complete CT/trauma workup which did not show any obvious rib fractures or fractures within the chest. Denies any headache, fever, neck pain, changes in vision/speech/mentation/hearing, URI , sore throat, chest pain, palpitations, syncope, cough, shortness of breath, wheeze, dyspnea, abdominal pain, nausea/vomiting/diarrhea, urinary retention, dysuria, hematuria, loss of control of bowel or bladder, numbness/tingling, saddle anesthesia, muscle paralysis/weakness, or rash. - ROS Systems Reviewed and Negative: Yes All other systems reviewed and negative - REPRODUCTIVE Reproductive: DENIES: : Past Medical History - Social History Smoking Status: Current Every Day Smoker Chew tobacco use (# tins/day): No Frequency of alcohol use: None Drug Abuse: None Family History: None, Reviewed & Not Pertinent Patient has suicidal ideation: No Patient has homicidal ideation: No - Past Medical History Cardiac Medical History: Reports: Hx Hypercholesterolemia, Hx Hypertension Pulmonary Medical History: Reports: Hx COPD Denies: Hx Tuberculosis Endocrine Medical History: Reports: Hx Diabetes Mellitus Type 2 Renal/ Medical History: Denies: Hx Peritoneal Dialysis GI Medical History: Reports: Hx Gastroesophageal Reflux Disease Psychiatric Medical History: Reports: Hx Depression Past Surgical History: Reports: Hx Orthopedic Surgery - RLE, right carpal tunnel , Hx Tonsillectomy - Immunizations Hx Diphtheria, Pertussis, Tetanus Vaccination: Yes - 2010 Hx Pneumococcal Vaccination: 07/23/12 Vertical Provider Document - CONSTITUTIONAL Agree With Documented VS: Yes Notes: PHYSICAL EXAMINATION: GENERAL: Well-appearing, well-nourished and in no acute distress. Chest/Rt ribs: No ecchymosis, flail chest. No deformity. + tenderness to the rt lateral lower ribs to palp directly. NECK: Normal range of motion, supple without lymphadenopathy. Non-tender. LUNGS: Breath sounds clear to auscultation bilaterally and equal. No wheezes rales or rhonchi. HEART: Regular rate and rhythm without murmurs, rubs, gallops. ABDOMEN: Soft, nontender, nondistended abdomen. No guarding, no rebound. No masses appreciated. Normal bowel sounds present. No CVA tenderness bilaterally. No ecchymosis. + diastasis recti noted. Musculoskeletal: FROM to passive/active. Strength 5+/5. Extremities: No cyanosis, clubbing, or edema b/l. Peripheral pulses 2+. Capillary refill less than 3 seconds. NEUROLOGICAL: Normal speech, normal gait with SPC. Normal sensory, motor exams PSYCH: Normal mood, normal affect. SKIN: Warm, Dry, normal turgor, no rashes or lesions noted. - INFECTION CONTROL TRAVEL OUTSIDE OF THE [place] IN LAST 30 DAYS: No Course - Re-evaluation Re-evalutation: 11/25/17 20:36 Patient is an afebrile, well-hydrated, 72-year-old male who presents to the ED with right lower rib pain, suspect contusion. Vitals are acceptable. PE is otherwise unremarkable. Patient has had this pain since his fall and presents due to not having any more pain medication continuing to have soreness in that area. Patient is otherwise nontoxic appearing. He has no chest pain, shortness of breath, wheezing, or dyspnea on exertion. Lung sounds are clear to auscultation bilaterally. He has no significant tachycardia, tachypnea, or hypoxia. No other labs or imaging warranted at this time based on H&P. Tylenol given p.o. today. I will send him with a Nix Hydra dispense pack, but states that he needs to follow-up with his primary care provider or consult with orthopedics. Return to the ED with any worsening/concerning symptoms otherwise as reviewed discharge. Patient is in agreement. - Vital Signs Vital signs: Temp Pulse Resp BP Pulse Ox 98.6 F 74 20 154/78 H 96 11/25/17 19:53 11/25/17 19:53 11/25/17 19:53 11/25/17 19:53 11/25/17 19:53 Discharge - Discharge Clinical Impression: Rib pain on right side Condition: Stable Disposition: HOME, SELF-CARE Instructions: Rib Contusion ([facility]) Additional Instructions: Rest, Ice Tylenol/ibuprofen as needed Light stretches daily Strength exercises as able Moist heat and massage may help F/u with your PCP in 2-3 days for a recheck Consider consult(s) with Orthopedics/physical therapy for ongoing/worsening symptoms Return to the ED with any worsening symptoms and/or development of fever, headache, chest pain, palpitations, syncope, shortness of breath, trouble breathing, abdominal pain, n/v/d, muscle weakness/paralysis, numbness/tingling, swelling, redness, or other worsening symptoms that are concerning to you. Prescriptions: Lidocaine [Lidoderm] 1 each TP DAILY #30 adh..patch Forms: Elevated Blood Pressure, Smoking Cessation Education Referrals: [facility] FOR [facility] ([facility]) [Provider Group] - Follow up as needed
[2017-11-25] MEDS ORDERED: LIDOCAINE 5% (700 MG) TRANSDERMAL ADH..PATCH TP ONE (20:38)
[2017-11-25] MEDS ORDERED: HYDROCODONE/ACETAMINOPHEN 5-325 MG (6 TAB/ER DISP) PO PRN (20:39)
== END 2017-11-25 20:51 | disposition home or self-care (01) ==
LOC: ER 19:50
DX: R07.81 Pleurodynia (principal); E11.9 Type 2 diabetes mellitus without complications; I10 Essential (primary) hypertension; J44.9 Chronic obstructive pulmonary disease, unspecified; K21.9 Gastro-esophageal reflux disease without esophagitis; F17.200 Nicotine dependence, unspecified, uncomplicated
CPT/HCPCS: 99283; A9270 ×2

== ENCOUNTER 2018-01-02 08:22 | Day surgery (SDC) | payer MEDICARE, OTHER ==
[~2018-01-02 08:22] MED LIST: KETOROLAC TROMETHAMINE 0.45% 4 DROP/0.4 ML DROPERETTE OD PRN; LIDOCAINE 1% INJ-PF (10 MG/ML) 30 ML SDV ONE
[2018-01-02] MEDS: CYCLOPENTOLATE 0.2%/PHENYLEPHRINE 1% OPH SOLN 2 ML OD PRN ×3 (08:46→09:09)
[2018-01-02] MEDS: BESIFLOXACIN HCL 0.6% OPH SUSP 5 ML BOTTLE OD PRN ×4 (08:46→09:45)
[2018-01-02] MEDS: TROPICAMIDE 1% OPH SOLN 3 ML OD PRN ×3 (08:46→09:09)
[2018-01-02] MEDS: TETRACAINE HCL 0.5% OPH SOLN 0.6 ML DROPERETTE OD PRN ×3 (08:47→09:23)
[2018-01-02] MEDS ORDERED: MIDAZOLAM 2 MG/2 ML INJ ONE (09:09)
[2018-01-02] MEDS: EPINEPHRINE INJ/PF 1 MG/1 ML AMPULE ONE ×2 (09:29)
[2018-01-02] MEDS: LIDOCAINE 1%/PHENYLEPHRINE 1.5% 1 ML VIAL ONE ×2 (09:31)
[2018-01-02] MEDS: CHONDR SU A NA/HYALUR INTRAOC KIT (SURGICARE) ONE ×2 (09:33)
[2018-01-02] MEDS: TOBRAMYCIN SULFATE/DEXAMETH OPH OINTMENT 3.5 GM ONE ×2 (09:45)
== END 2018-01-02 10:45 | disposition home or self-care (01) ==
LOC: SC 08:22
PROVIDERS: ATTEND Ophthalmology
DX: H25.11 Age-related nuclear cataract, right eye (principal); H40.1111 Primary open-angle glaucoma, right eye, mild stage; F17.210 Nicotine dependence, cigarettes, uncomplicated; J44.9 Chronic obstructive pulmonary disease, unspecified; E11.9 Type 2 diabetes mellitus without complications; M19.90 Unspecified osteoarthritis, unspecified site; E78.00 Pure hypercholesterolemia, unspecified; G57.93 Unspecified mononeuropathy of bilateral lower limbs; F41.9 Anxiety disorder, unspecified; I10 Essential (primary) hypertension; K21.9 Gastro-esophageal reflux disease without esophagitis; Z79.4 Long term (current) use of insulin; Z79.51 Long term (current) use of inhaled steroids; Z79.84 Long term (current) use of oral hypoglycemic drugs; Z79.899 Other long term (current) drug therapy
CPT/HCPCS: 0191T; 66984; 142; 82962; C1783; J0171; J2250; J2370; J3490; V2630

== ENCOUNTER 2018-01-16 06:39 | Day surgery (SDC) | payer MEDICARE, OTHER ==
[~2018-01-16 06:39] MED LIST changes: -KETOROLAC TROMETHAMINE 0.45% 4 DROP/0.4 ML DROPERETTE OD PRN; +KETOROLAC TROMETHAMINE 0.45% 4 DROP/0.4 ML DROPERETTE OS PRN; -LIDOCAINE 1% INJ-PF (10 MG/ML) 30 ML SDV ONE
[2018-01-16] MEDS ORDERED: MIDAZOLAM 2 MG/2 ML INJ ONE (06:50)
[2018-01-16] MEDS: TROPICAMIDE 1% OPH SOLN 3 ML OS PRN ×4 (06:51→07:11)
[2018-01-16] MEDS: BESIFLOXACIN HCL 0.6% OPH SUSP 5 ML BOTTLE OS PRN ×5 (06:51→07:55)
[2018-01-16] MEDS: CYCLOPENTOLATE 0.2%/PHENYLEPHRINE 1% OPH SOLN 2 ML OS PRN ×4 (06:51→07:11)
[2018-01-16] MEDS: TETRACAINE HCL 0.5% OPH SOLN 0.6 ML DROPERETTE OS PRN ×4 (06:52→07:35)
[2018-01-16] MEDS ORDERED: FENTANYL CITRATE INJ/PF 100 MCG/2 ML AMPUL ONE (07:00)
[2018-01-16] MEDS ORDERED: EPINEPHRINE INJ/PF 1 MG/1 ML AMPULE ONE (07:12)
[2018-01-16] MEDS ORDERED: CHONDR SU A NA/HYALUR INTRAOC KIT (SURGICARE) ONE (07:13)
[2018-01-16] MEDS ORDERED: LIDOCAINE 1% INJ-PF (10 MG/ML) 30 ML SDV ONE (07:13)
[2018-01-16] MEDS: TOBRAMYCIN SULFATE/DEXAMETH OPH OINTMENT 3.5 GM ONE ×2 (07:55)
== END 2018-01-16 08:40 | disposition home or self-care (01) ==
LOC: SC 06:39
PROVIDERS: ATTEND Ophthalmology
DX: H25.12 Age-related nuclear cataract, left eye (principal); H40.1131 Primary open-angle glaucoma, bilateral, mild stage; Z98.41 Cataract extraction status, right eye; F17.210 Nicotine dependence, cigarettes, uncomplicated; M19.90 Unspecified osteoarthritis, unspecified site; J44.9 Chronic obstructive pulmonary disease, unspecified; E11.9 Type 2 diabetes mellitus without complications; I10 Essential (primary) hypertension; K21.9 Gastro-esophageal reflux disease without esophagitis; E78.00 Pure hypercholesterolemia, unspecified; F41.9 Anxiety disorder, unspecified; G62.9 Polyneuropathy, unspecified; Z79.51 Long term (current) use of inhaled steroids; Z79.899 Other long term (current) drug therapy; Z79.84 Long term (current) use of oral hypoglycemic drugs
CPT/HCPCS: 0191T; 66984; 142; 82962; C1783; J0171; J2250; J3010; J3490; V2630

== ENCOUNTER 2018-02-02 18:55 | Emergency (ER) | payer MEDICARE, OTHER ==
--- NOTE | 2018-02-02 19:21 | ER Document Report ---
ED Medical Screen (RME) - General Chief Complaint: Eye Problem Stated Complaint: EYE PAIN Time Seen by Provider: 02/02/18 19:15 Notes: RAPID MEDICAL EVALUATION DISCLOSURE I have seen this patient as part of a Rapid Medical Evaluation and, if applicable, placed any initially appropriate orders. The patient will be seen and fully evaluated, including a full history and physical exam, by a provider ( in Main ED or Fast Track) when a room becomes available. 72-year-old male PMH glaucoma here with complaints of left eye pain that started earlier today. He was watching TV earlier today but does not think there were any bright lights around the time that the pain started. He has been using his glaucoma eyedrops and has not missed any doses. He feels as though something is stuck in his eye however denies performing any woodworking or metalworking recently. EXAM Pupils equal and reactive to light Left conjunctival injection TRAVEL OUTSIDE OF THE [place] IN LAST 30 DAYS: No - Related Data Allergies/Adverse Reactions: No Known Allergies Allergy (Verified 02/02/18 19:15) Past Medical History - Social History Chew tobacco use (# tins/day): No Frequency of alcohol use: weekends Drug Abuse: None - Past Medical History Cardiac Medical History: Reports: Hx Hypercholesterolemia, Hx Hypertension Denies: Hx Heart Attack Pulmonary Medical History: Reports: Hx COPD Denies: Hx Asthma, Hx Tuberculosis Neurological Medical History: Reports: Hx Seizures - 2014 D/T DIABETES. Denies : Hx Cerebrovascular Accident Endocrine Medical History: Reports: Hx Diabetes Mellitus Type 2 Renal/ Medical History: Denies: Hx Peritoneal Dialysis GI Medical History: Reports: Hx Gastroesophageal Reflux Disease. Denies: Hx Hepatitis, Hx Hiatal Hernia, Hx Ulcer Psychiatric Medical History: Reports: Hx Depression Infectious Medical History: Denies: Hx Hepatitis Past Surgical History: Reports: Hx Orthopedic Surgery - RLE, right carpal tunnel , Hx Tonsillectomy. Denies: Hx Open Heart Surgery, Hx Pacemaker - Immunizations Hx Diphtheria, Pertussis, Tetanus Vaccination: Yes - 2010 History of Influenza Vaccine for 04/2017 - 09/2017 Season: Yes Influenza Administration Date for 04/2017 - 09/2017 Season: 04/22/17 Physical Exam - Vital signs Vitals: Temp Pulse Resp BP Pulse Ox 97.4 F 65 14 183/94 H 98 02/02/18 19:08 02/02/18 19:08 02/02/18 19:08 02/02/18 19:08 02/02/18 19:08 Course - Vital Signs Vital signs: Temp Pulse Resp BP Pulse Ox 97.4 F 65 14 183/94 H 98 02/02/18 19:08 02/02/18 19:08 02/02/18 19:08 02/02/18 19:08 02/02/18 19:08 Doctor's Discharge - Discharge Referrals: NIDHI NULL MD [Primary Care Provider] - Follow up as needed
[2018-02-02] MEDS ORDERED: TETRACAINE HCL 0.5% OPH SOLN 2 ML OU ONE (19:39)
[2018-02-02] MEDS ORDERED: POLYMYXIN B SULFATE/TMP OPH SOLN (10 ML/ER DISP) OS PRN (20:06)
--- NOTE | 2018-02-02 20:08 | ER Document Report ---
ED General - General Chief Complaint: Eye Problem Stated Complaint: EYE PAIN Time Seen by Provider: 02/02/18 19:15 Notes: Patient is a 72-year-old male with a past medical history of glaucoma, bilateral cataract surgery who presents with 8 hours of left eye pain. He describes it as a throbbing, scratching, aching pain. He states that it feels like there is something stuck in his eye. Nothing improves or worsens this pain. He denies a history of similar symptoms in the past. He attempted to contact his phosphoric acid operator but was unable to get a hold of them. He therefore came to the emergency department. He denies any known trauma to the eye. He does not normally wear contact lenses. He denies any change in visual acuity. TRAVEL OUTSIDE OF THE [place] IN LAST 30 DAYS: No - Related Data Allergies/Adverse Reactions: No Known Allergies Allergy (Verified 02/02/18 19:15) Past Medical History - General Information source: Patient - Social History Smoking Status: Current Every Day Smoker Chew tobacco use (# tins/day): No Frequency of alcohol use: weekends Drug Abuse: None Lives with: Alone Family History: Reviewed & Not Pertinent Patient has suicidal ideation: No Patient has homicidal ideation: No - Past Medical History Cardiac Medical History: Reports: Hx Hypercholesterolemia, Hx Hypertension Denies: Hx Heart Attack Pulmonary Medical History: Reports: Hx COPD Denies: Hx Asthma, Hx Tuberculosis Neurological Medical History: Reports: Hx Seizures - 2013 D/T DIABETES. Denies : Hx Cerebrovascular Accident Endocrine Medical History: Reports: Hx Diabetes Mellitus Type 2 Renal/ Medical History: Denies: Hx Peritoneal Dialysis GI Medical History: Reports: Hx Gastroesophageal Reflux Disease. Denies: Hx Hepatitis, Hx Hiatal Hernia, Hx Ulcer Psychiatric Medical History: Reports: Hx Depression Infectious Medical History: Denies: Hx Hepatitis Past Surgical History: Reports: Hx Orthopedic Surgery - RLE, right carpal tunnel , Hx Tonsillectomy. Denies: Hx Open Heart Surgery, Hx Pacemaker - Immunizations Hx Diphtheria, Pertussis, Tetanus Vaccination: Yes - 2010 Hx Pneumococcal Vaccination: 07/23/12 Review of Systems - Review of Systems Notes: Constitutional: Negative for fever. HENT: Negative for sore throat. Eyes: Positive for left eye pain Cardiovascular: Negative for chest pain. Respiratory: Negative for shortness of breath. Gastrointestinal: Negative for abdominal pain, vomiting or diarrhea. Genitourinary: Negative for dysuria. Musculoskeletal: Negative for back pain. Skin: Negative for rash. Neurological: Negative for headaches, weakness or numbness. 10 point ROS negative except as marked above and in HPI. Physical Exam - Vital signs Vitals: Temp Pulse Resp BP Pulse Ox 97.4 F 65 14 183/94 H 98 02/02/18 19:08 02/02/18 19:08 02/02/18 19:08 02/02/18 19:08 02/02/18 19:08 Interpretation: Hypertensive Notes: PHYSICAL EXAMINATION: GENERAL: Well-appearing, well-nourished and in no acute distress. HEAD: Atraumatic, normocephalic. EYES: Prominent conjunctival injection on the left, normal on the right. Pupils are 3 mm, equally reactive. Extraocular motions are intact bilaterally. Pressure is 13 on the left. Fluorescein staining reveals 2 small corneal abrasions in the central cornea. Eyelid was flipped without any evidence of a retained foreign body. ENT: nares patent, oropharynx clear without exudates. Moist mucous membranes. NECK: Normal range of motion, supple without lymphadenopathy LUNGS: Breath sounds clear to auscultation bilaterally and equal. No wheezes rales or rhonchi. HEART: Regular rate and rhythm without murmurs ABDOMEN: Soft, nontender, normoactive bowel sounds. No guarding, no rebound. No masses appreciated. EXTREMITIES: Normal range of motion, no pitting or edema. No cyanosis. NEUROLOGICAL: No focal neurological deficits. Moves all extremities spontaneously and on command. PSYCH: Normal mood, normal affect. SKIN: Warm, Dry, normal turgor, no rashes or lesions noted. Course - Re-evaluation Re-evalutation: 02/02/18 20:06 Patient presents with several hours of ongoing left eye pain with a history of bilateral cataract surgery and glaucoma. Ocular pressure is 13 on 2 separate measurements using a Jake-Pen to the left eye. Fluorescein staining was subsequently completed and demonstrated to corneal ulcers in the central cornea. The eyelid was flipped and there is no evidence of a foreign body. Extraocular motions intact. Pupillary response unchanged. Patient denies any visual acuity loss. He reports complete resolution of his discomfort after instillation of tetracaine in the eye. He has been provided Polytrim drops and has been recommended to follow-up with his phosphoric acid operator on Sunday. At this time will discharge with return precautions and follow-up recommendations. Verbal discharge instructions given a the bedside and opportunity for questions given. Medication warnings reviewed. Patient is in agreement with this plan and has verbalized understanding of return precautions and the need for ophthalmology follow-up on Sunday - Vital Signs Vital signs: Temp Pulse Resp BP Pulse Ox 97.9 F 59 L 18 169/87 H 98 02/02/18 20:17 02/02/18 20:17 02/02/18 20:17 02/02/18 20:17 02/02/18 20:17 Discharge - Discharge Clinical Impression: Left eye pain Left corneal abrasion Qualifiers: Encounter type: initial encounter Qualified Code(s): S05.02XA - Injury of conjunctiva and corneal abrasion without foreign body, left eye, initial encounter Condition: Good Disposition: HOME, SELF-CARE Additional Instructions: You have a corneal abrasion. This should improve in the next several days. You should apply the eye drops to the affected eye 3 times daily. Follow-up with your eye doctor at your earliest ability. Return if you have decreased vision, worsening pain, increased drainage from the eye, you notice redness or puffiness around the eye, you develop a fever greater than 101F, or you have any other symptoms that are concerning to you. Referrals: NIDHI NULL MD [Primary Care Provider] - Follow up as needed JAVI MCCLELLAND DO [ACTIVE STAFF] - 02/04/18
[2018-02-02 20:37] VITALS: BP 169/87
== END 2018-02-02 20:20 | disposition home or self-care (01) ==
LOC: ER 18:55
DX: S05.02XA Injury of conjunctiva and corneal abrasion without foreign body, left eye, initial encounter (principal); X58.XXXA Exposure to other specified factors, initial encounter; F17.200 Nicotine dependence, unspecified, uncomplicated; I10 Essential (primary) hypertension; J44.9 Chronic obstructive pulmonary disease, unspecified; E11.9 Type 2 diabetes mellitus without complications
CPT/HCPCS: 99283; J3490

== ENCOUNTER 2018-06-26 15:43 | Emergency (ER) | payer MEDICARE, OTHER ==
--- NOTE | 2018-06-26 17:04 | ER Document Report ---
ED Medical Screen (RME) - General Chief Complaint: Penile Problem Stated Complaint: GROIN PAIN Time Seen by Provider: 06/26/18 17:02 Notes: 73 years old male presents today with right groin pain over the inguinal region radiating to the right testicle and also itchy sensation of the penile gland therefore present to the ED. He also had urinary dribbling after urinating slow urinary flow. No incontinence. No fever chills or other constitutional symptoms Right groin inguinal hernia with tenderness on palpation. TRAVEL OUTSIDE OF THE [place] IN LAST 30 DAYS: No - Related Data Allergies/Adverse Reactions: No Known Allergies Allergy (Verified 06/26/18 15:49) Past Medical History - Past Medical History Cardiac Medical History: Reports: Hx Hypercholesterolemia, Hx Hypertension Denies: Hx Heart Attack Pulmonary Medical History: Reports: Hx COPD Denies: Hx Asthma, Hx Tuberculosis Neurological Medical History: Reports: Hx Seizures - 2013 D/T DIABETES. Denies : Hx Cerebrovascular Accident Endocrine Medical History: Reports: Hx Diabetes Mellitus Type 2 Renal/ Medical History: Denies: Hx Peritoneal Dialysis GI Medical History: Reports: Hx Gastroesophageal Reflux Disease. Denies: Hx Hepatitis, Hx Hiatal Hernia, Hx Ulcer Psychiatric Medical History: Reports: Hx Depression Infectious Medical History: Denies: Hx Hepatitis Past Surgical History: Reports: Hx Orthopedic Surgery - RLE, right carpal tunnel , Hx Tonsillectomy. Denies: Hx Open Heart Surgery, Hx Pacemaker - Immunizations Hx Diphtheria, Pertussis, Tetanus Vaccination: Yes - 2010 History of Influenza Vaccine for 04/2017 - 09/2017 Season: Yes Influenza Administration Date for 04/2017 - 09/2017 Season: 04/22/17 Physical Exam - Vital signs Vitals: Temp Pulse Resp BP Pulse Ox 97.6 F 74 24 H 156/92 H 99 06/26/18 16:42 06/26/18 16:42 06/26/18 16:42 06/26/18 16:42 06/26/18 16:42 Course - Vital Signs Vital signs: Temp Pulse Resp BP Pulse Ox 97.6 F 74 24 H 156/92 H 99 06/26/18 16:42 06/26/18 16:42 06/26/18 16:42 06/26/18 16:42 06/26/18 16:42 Doctor's Discharge - Discharge Referrals: NIDHI NULL MD [Primary Care Provider] - Follow up as needed
--- NOTE | 2018-06-26 17:45 | RADIOLOGY REPORT (SQ) ---
EXAM DESCRIPTION: ACUTE ABDOMEN SERIES COMPLETED DATE/TIME: 06/26/2018 5:17 pm REASON FOR STUDY: Abdominal pain, right inguinal hernia COMPARISON: 04/07/2009 NUMBER OF VIEWS: Three views. TECHNIQUE: Frontal chest, supine abdomen and upright/decubitus abdomen radiographic images acquired. LIMITATIONS: None. FINDINGS: CHEST: Lungs clear of infiltrates. FREE AIR: None. No abnormal gas collections. BOWEL GAS PATTERN: Nonobstructive pattern. No dilated loops or air fluid levels. CALCIFICATIONS: No suspicious calcifications. HARDWARE: None in the abdomen. SOFT TISSUES: No gross mass or suggestion of organomegaly. BONES: Scoliosis convex left thoracic, right lumbar. Degenerative disc disease. OTHER: No other significant finding. IMPRESSION: NO RADIOGRAPHIC EVIDENCE FOR ACUTE ABDOMINAL DISEASE. TECHNICAL DOCUMENTATION: JOB ID: [id number] [employer]- All Rights Reserved Reading location - IP/workstation name: [email or web address]
--- NOTE | 2018-06-26 18:53 | ER Document Report ---
ED Skin Rash/Insect Bite/Abscs - General Chief Complaint: Penile Problem Stated Complaint: GROIN PAIN Time Seen by Provider: 06/26/18 17:02 Notes: This is a 73-year-old male to the emergency department complaining of itching and redness around his penis and scrotum. States he has been scratching it. Does burn a little bit when he urinates. Denies any other symptoms. No abdominal pain. No vomiting. No fever, chills, sweats or other issues at this time. [facility] Has not talked to anyone about the symptoms yet. Has not checked his blood sugar in a long time but does have diabetes. TRAVEL OUTSIDE OF THE [place] IN LAST 30 DAYS: No - HPI Patient complains to provider of: Skin rash/lesion, Tender/swollen area Onset: Last week Onset/Duration: Gradual, Constant Quality of pain: Burning Severity: Moderate Pain Level: 1 Skin Character: Erythema, Warm Skin Temperature: Warm Quality of rash: Itchy, Burning Other exposure: denies: Detergent, Lotions, Poison margie, Soap - Related Data Allergies/Adverse Reactions: No Known Allergies Allergy (Verified 06/26/18 15:49) Past Medical History - General Information source: Patient - Social History Smoking Status: Current Every Day Smoker Frequency of alcohol use: Occasional Drug Abuse: None Lives with: Family Family History: Reviewed & Not Pertinent Patient has suicidal ideation: No Patient has homicidal ideation: No - Past Medical History Cardiac Medical History: Reports: Hx Hypercholesterolemia, Hx Hypertension Denies: Hx Heart Attack Pulmonary Medical History: Reports: Hx COPD Denies: Hx Asthma, Hx Tuberculosis Neurological Medical History: Reports: Hx Seizures - 2013 D/T DIABETES. Denies : Hx Cerebrovascular Accident Endocrine Medical History: Reports: Hx Diabetes Mellitus Type 2 Renal/ Medical History: Denies: Hx Peritoneal Dialysis GI Medical History: Reports: Hx Gastroesophageal Reflux Disease. Denies: Hx Hepatitis, Hx Hiatal Hernia, Hx Ulcer Psychiatric Medical History: Reports: Hx Depression Infectious Medical History: Denies: Hx Hepatitis Past Surgical History: Reports: Hx Orthopedic Surgery - RLE, right carpal tunnel , Hx Tonsillectomy. Denies: Hx Open Heart Surgery, Hx Pacemaker - Immunizations Hx Diphtheria, Pertussis, Tetanus Vaccination: Yes - 2010 Hx Pneumococcal Vaccination: 07/23/12 Review of Systems - Review of Systems Notes: Constitutional: denies: Chills, Diaphoresis, Fever, Malaise, Weakness EENT: denies: Eye discharge, Blurred vision, Tearing, Double vision, Nose congestion, Nose discharge, Throat swelling, Mouth pain Cardiovascular: denies: Palpitations, Heart racing, Orthopnea, Dyspnea, Chest pain Respiratory: denies: Cough, Hurts to breathe, Wheezing, Shortness of breath Gastrointestinal: denies: Abdominal pain, Diarrhea, Nausea, Vomiting, Black stools, bright red blood in stool Genitourinary: denies: Burning, Dysuria, Discharge, Frequency, Flank pain, Hematuria Musculoskeletal: denies: Joint pain, Joint swelling, Muscle pain, Muscle stiffness, back pain Hematologic/Lymphatic: denies: Anemia, Easy bleeding, Easy bruising, Blood clots Neurological/Psychological: denies: Confusion, Dementia, Depression, Loss of consciousness Skin: Complaining of redness, itching and burning around his penis and scrotum Physical Exam - Vital signs Vitals: Temp Pulse Resp BP Pulse Ox 97.6 F 74 24 H 156/92 H 99 06/26/18 16:42 06/26/18 16:42 06/26/18 16:42 06/26/18 16:42 06/26/18 16:42 Interpretation: Normal - General General appearance: Appears well, Alert - HEENT Head: Normocephalic, Atraumatic Eyes: Normal Pupils: PERRL - Respiratory Respiratory status: No respiratory distress Chest status: Nontender Breath sounds: Normal Chest palpation: Normal - Cardiovascular Rhythm: Regular Heart sounds: Normal auscultation Murmur: No - Abdominal Inspection: Normal Distension: No distension Bowel sounds: Normal Tenderness: Nontender Organomegaly: No organomegaly - Genitourinary Notes: Patient has no significant erythema to the scrotum. Patient does have significant amount of redness around the glans penis. Does have some evidence of yeast infection. No active drainage from the penis. No swollen lymph nodes in the groin. Not see any evidence of parasites. There is no significant evidence of scabies or pubic lice. - Back Back: Normal, Nontender - Extremities General upper extremity: Normal inspection, Nontender, Normal color, Normal ROM , Normal temperature General lower extremity: Normal inspection, Nontender, Normal color, Normal ROM , Normal temperature, Normal weight bearing. No: Ann's sign - Neurological Neuro grossly intact: Yes Cognition: Normal Orientation: AAOx4 Cristobal Coma Scale Eye Opening: Spontaneous [place] Coma Scale Verbal: Oriented [place] Coma Scale Motor: Obeys Commands Cristobal Coma Scale Total: 15 Speech: Normal Motor strength normal: LUE, RUE, LLE, RLE Sensory: Normal - Psychological Associated symptoms: Normal affect, Normal mood - Skin Skin Temperature: Warm Skin Moisture: Dry Skin Color: Normal Course - Re-evaluation Re-evalutation: 06/26/18 22:19 At this time more likely patient has a fungal/yeast infection to the groin area. His blood sugars 375 and he does not normally check it. Initially I thought about giving him a dose of insulin however I am concerned that he may not check his blood sugar later at home. I do not think patient needs to be hospitalized. I will give him a dose of Diflucan and then write him some nystatin cream. Was itching quite a bit so will give him a dose and a prescription for Vistaril. Patient seems comfortable with this plan. Has adequate follow-up. Will DC at this time. Had a long discussion about his blood sugar and he realizes that he needs to take his medications check his blood sugar regularly and if the blood sugar comes back higher than 400 or he gets worsening symptoms he needs to return. - Vital Signs Vital signs: Temp Pulse Resp BP Pulse Ox 98.6 F 74 16 145/68 H 97 06/26/18 19:28 06/26/18 16:42 06/26/18 19:28 06/26/18 19:28 06/26/18 19:28 - Laboratory Laboratory results interpreted by me: 06/26/18 06/26/18 18:20 18:48 POC Glucose 375 H Urine Glucose (UA) >=500 H Discharge - Discharge Clinical Impression: Fungal infection of skin Condition: Good Disposition: HOME, SELF-CARE Additional Instructions: It appears that you have a yeast infection on the genital area. We will treat you with an antifungal medication as well as some topical antifungal cream. You more than likely have this fungal infection because your blood sugar is too high. You will need to get your blood sugar treated more aggressively. Please talk to your doctors. It would be very important that you check your blood sugar again before you go to bed tonight as we gave you some insulin. Please begin the medications as prescribed. In the event the symptoms are getting worse please return for repeat evaluation. Prescriptions: Hydroxyzine Pamoate [Vistaril 25 mg Capsule] 25 mg PO TID PRN #30 capsule PRN Reason: Itching Nystatin [Mycostatin Cream 15 gm] 1 applic TP BID #15 gm Referrals: NIDHI NULL MD [Primary Care Provider] - Follow up as needed
[2018-06-26] MEDS ORDERED: INSULIN REG, HUMAN 100 UNIT/ML 3 ML VIAL (PYX) SUBCUT ONE (18:57)
[2018-06-26] MEDS ORDERED: FLUCONAZOLE 100 MG TABLET PO ONE (18:57)
[2018-06-26] MEDS ORDERED: FAMOTIDINE 20 MG TABLET PO ONE (18:57)
[2018-06-26 19:04] LABS: APPEARANCE,URINE CLEAR; BILIRUBIN,URINE NEGATIVE (NEGATIVE); COLOR,URINE YELLOW; GLUCOSE, URINE >=500 mg/dL (NEGATIVE); KETONES,URINE NEGATIVE (NEGATIVE); LEUKOCYTE ESTERASE,URINE NEGATIVE (NEGATIVE); NITRITE,URINE NEGATIVE (NEGATIVE); PROTEIN,URINE NEGATIVE (NEGATIVE); URINE SPECIFIC GRAVITY 1.024; UROBILINOGEN,URINE NEGATIVE mg/dL (<2.0)
[2018-06-26 19:45] VITALS: BP 145/68
== END 2018-06-26 19:41 | disposition home or self-care (01) ==
LOC: ER 15:43
DX: B36.9 Superficial mycosis, unspecified (principal); B37.49 Other urogenital candidiasis; E11.9 Type 2 diabetes mellitus without complications; F17.200 Nicotine dependence, unspecified, uncomplicated; I10 Essential (primary) hypertension; J44.9 Chronic obstructive pulmonary disease, unspecified
CPT/HCPCS: 99283; 82962; 81001; 74022; A9270 ×2

== ENCOUNTER 2018-12-17 22:44 | Emergency (ER) | payer MEDICARE, OTHER ==
--- NOTE | 2018-12-17 22:59 | RADIOLOGY REPORT (SQ) ---
CT HEAD WITHOUT IV CONTRAST HISTORY: Left-sided facial droop COMPARISON: 11/14/2017. TECHNIQUE: CT scan of the brain without IV contrast. This exam was performed according to our departmental dose-optimization program, which includes automated exposure control, adjustment of the mA and/or kV according to patient size and/or use of iterative reconstruction technique. FINDINGS: The ventricles, cisterns, and sulci are age-appropriate. No evidence of acute infarction, intracranial hemorrhage, extra-axial fluid collection, or midline shift. No air-fluid levels are seen in the paranasal sinuses to suggest acute sinusitis. No depressed skull fracture. IMPRESSION: No acute intracranial findings are seen. Please note that MRI is more sensitive for the evaluation of early infarction, and may be performed if there is high clinical concern.
--- NOTE | 2018-12-17 23:08 | ER Document Report ---
ED Neuro Symptoms/Deficit - General Stated Complaint: S/S STROKE Time Seen by Provider: 12/17/18 22:58 TRAVEL OUTSIDE OF THE [place] IN LAST 30 DAYS: No - HPI Notes: Patient is a 73-year-old male that presents to the emergency department for chief complaint of stroke symptoms. HPI obtained from EMS. Patient's family states they have been talking to him all day and he has been normal. At baseline patient has some mild confusion but is otherwise independent and highly functioning. At 8 PM they spoke with him and he sounded normal. At 8:30 PM they found him lying in front of the house without pants on. They are unsure of the nature of how he got on the ground or if he hit his head per EMS. Patient is confused and not able to provide HPI. EMS denies patient being on any blood thinning medications. Past Medical History: Diabetes, hypertension, hyperlipidemia, glaucoma Past Surgical History: Reviewed in chart Social History: Reviewed in chart Family History: Reviewed and noncontributory for presenting illness Allergies: Reviewed, see documented allergy list. REVIEW OF SYSTEMS: Unable to obtain because of acuity of condition PHYSICAL EXAMINATION: Vital signs reviewed, nursing noted reviewed. GENERAL: Alert, well-nourished HEAD: Atraumatic, normocephalic. EYES: Eyes appear normal, extraocular movements intact, sclera anicteric, conjunctiva are normal. ENT: nares patent, oropharynx clear without exudates. Moist mucous membranes. NECK: No apparent midline tenderness or step-off, normal range of motion, supple without lymphadenopathy LUNGS: No chest wall tenderness, breath sounds clear to auscultation bilaterally and equal. No wheezes rales or rhonchi. HEART: Regular rate and rhythm without murmurs ABDOMEN: Soft, nontender, normoactive bowel sounds. No rebound, guarding, or rigidity. No masses appreciated. EXTREMITIES: Pelvis stable. Normal range of motion of left knee and hip with some apparent tenderness but no deformity. No deformity or tenderness to the left elbow with normal range of motion. nontender, good range of motion, no pitting or edema. NEUROLOGICAL: NIH equals 9. Left facial droop, right leg weakness, aphasia, confusion, not following commands SKIN: Warm, Dry, normal turgor, left elbow abrasion, left knee abrasion, ecchymosis to left knee, left hip and left elbow - Related Data Allergies/Adverse Reactions: No Known Allergies Allergy (Verified 06/26/18 15:49) Past Medical History - Social History Smoking Status: Unknown if Ever Smoked Family History: Reviewed & Not Pertinent - Past Medical History Cardiac Medical History: Reports: Hx Hypercholesterolemia, Hx Hypertension Denies: Hx Heart Attack Pulmonary Medical History: Reports: Hx COPD Denies: Hx Asthma, Hx Tuberculosis Neurological Medical History: Reports: Hx Seizures - 2014 D/T DIABETES. Denies: Hx Cerebrovascular Accident Endocrine Medical History: Reports: Hx Diabetes Mellitus Type 2 Renal/ Medical History: Denies: Hx Peritoneal Dialysis GI Medical History: Reports: Hx Gastroesophageal Reflux Disease. Denies: Hx Hepatitis, Hx Hiatal Hernia, Hx Ulcer Psychiatric Medical History: Reports: Hx Depression Infectious Medical History: Denies: Hx Hepatitis Past Surgical History: Reports: Hx Orthopedic Surgery - RLE, right carpal tunnel, Hx Tonsillectomy. Denies: Hx Open Heart Surgery, Hx Pacemaker - Immunizations Hx Diphtheria, Pertussis, Tetanus Vaccination: Yes - 2010 Hx Pneumococcal Vaccination: 07/23/12 Course - Re-evaluation Re-evalutation: 12/17/18 23:33 Vitals reviewed. Nursing notes reviewed. Patient symptoms are consistent with acute stroke. He has no findings on initial CT brain. He did have an apparent fall with abrasions to his left elbow hip and knee but there is no external signs of head injury. Patient is not on any blood thinning medications currently. I do not see any contraindications at this time other than possible head injury. I did discuss patient's care and the possibility of head injury with neurology at [facility]. Because his CT scan shows no intracranial hemorrhage and there are no external signs that he hit his head TPA is not contraindicated. Patient's risks and benefits of TPA were discussed with his daughter who is at bedside. She does wish for him to receive the TPA and understands risk of hemorrhage. Patient will be given TPA and transferred to [facility] for further neurologic management. 12/18/18 01:02 Laboratory 12/17/18 12/17/18 12/17/18 22:57 23:02 23:02 WBC 16.1 H RBC 5.38 Hgb 15.2 Hct 42.7 MCV 79 L MCH 28.2 MCHC 35.6 RDW 12.9 Plt Count 215 Seg Neutrophils % 86.9 H Lymphocytes % 6.7 L Monocytes % 6.1 Eosinophils % 0.0 Basophils % 0.3 Absolute Neutrophils 13.9 H Absolute Lymphocytes 1.1 Absolute Monocytes 1.0 Absolute Eosinophils 0.0 Absolute Basophils 0.1 PT 13.6 INR 0.99 APTT 26.0 Sodium Potassium Chloride Carbon Dioxide Anion Gap BUN Creatinine Est GFR ( Amer) Est GFR (Non-Af Amer) Glucose POC Glucose 227 H Calcium Total Bilirubin Direct Bilirubin Neonat Total Bilirubin Neonat Direct Bilirubin Neonat Indirect Bili AST ALT Alkaline Phosphatase Creatine Kinase CK-MB (CK-2) Troponin I Total Protein Albumin Serum Alcohol 12/17/18 12/17/18 23:02 23:02 WBC RBC Hgb Hct MCV MCH MCHC RDW Plt Count Seg Neutrophils % Lymphocytes % Monocytes % Eosinophils % Basophils % Absolute Neutrophils Absolute Lymphocytes Absolute Monocytes Absolute Eosinophils Absolute Basophils PT INR APTT Sodium 126.8 L Potassium 3.5 L Chloride 89 L Carbon Dioxide 24 Anion Gap 14 BUN 9 Creatinine 1.31 H Est GFR ( Amer) > 60 Est GFR (Non-Af Amer) 54 L Glucose 245 H POC Glucose Calcium 9.5 Total Bilirubin 1.4 H Direct Bilirubin 0.3 Neonat Total Bilirubin Not Reportable Neonat Direct Bilirubin Not Reportable Neonat Indirect Bili Not Reportable AST 44 ALT 28 Alkaline Phosphatase 119 Creatine Kinase 971 H CK-MB (CK-2) 10.50 H Troponin I 0.288 Total Protein 7.4 Albumin 4.1 Serum Alcohol < 10 Chest X-Ray 12/17/18 22:46 IMPRESSION: Negative chest copyright 2010 [employer]- All Rights Reserved Head CT 12/17/18 22:46 IMPRESSION: No acute intracranial findings are seen. Please note that MRI is more sensitive for the evaluation of early infarction, and may be performed if there is high clinical concern. Hip X-Ray 12/17/18 23:04 IMPRESSION: 1. No acute findings. Knee X-Ray 12/17/18 23:04 IMPRESSION: No acute fracture is identified. Elbow X-Ray 12/17/18 23:08 IMPRESSION: No definite fracture noted Moderate to severe degenerative change Suboptimal positioning in the lateral projection - Laboratory Result Diagrams: 12/17/18 23:02 12/17/18 23:02 - EKG Interpretation by Me Additional EKG results interpreted by me: 12/17/18 23:33 Interpreted by myself 2302: Normal sinus rhythm, rate 93, normal axis, LAFB, no STEMI Critical Care Note - Critical Care Note Total time excluding time spent on procedures (mins): 35 Comments: Critical care time 35 exclusive from separate billable procedures for a patient requiring complex medical decision making, and high potential for clinical deterioration. Time spent obtaining history from patient or surrogate, discussions with consultants, development of treatment plan with patient or surrogate, evaluation of patient's response to treatment, examination of patient, ordering and performing treatments and interventions, ordering and review of laboratory studies, re-evaluation of patient's condition, ordering and review of radiographic studies and review of old charts ED NIH Stroke Scale - NIH Stroke Scale *: 1. NIH scale should be completed with appropriate accompanying assessment tools. *: 2. The NIH should reflect what the patient is capable of doing and should not be coached by the clinician. 1a. Level of Consciousness: 0=Alert;keenly responsive -: 1=Drowsy -: 2=Obtunded -: 3=Coma/unresponsive or reflex to noxious stimuli. 1a. Responses: 0 1b. Orientation Questions: a. What month is it? -: b. How old are you? -: 0=Answers both questions correctly. -: 1=Answers one question correctly or patient is intubated or has orotracheal trauma. -: 2=Answers neither question correctly. 1b. Responses: 1 1c. Response to commands: a. Open and close eyes? -: b. Online Advertising Manager and release hand? -: Credit is given despite weakness. Demonstration of task is permitted. Substitute command if hands cannot be used. -: 0=Performs both tasks correctly -: 1=Performs one task correctly -: 2=Performs neither task correctly 1c. Responses: 2 2. Gaze: Establish eye contact and instruct patient to "Follow my finger" -: 0=Normal -: 1=Partial gaze palsy. Gaze is abnormal in one or both eyes, but where forced deviation or total gaze paresis is not present. -: 2=Forced deviation or total gaze paresis. 2. Responses: 0 3. Visual Naik: Sees fingers in all four quadrants. -: 0=No visual loss. -: 1=Partial hemianopsia. -: 2=Complete hemianopsia. -: 3=Bilateral hemianopsia (including Cortical blindness) 3. Responses: 0 4. Facial Movement: Instruct patient to: -: a. Show me your teeth -: b. Raise your eyebrows -: c. Close your eyes -: d. Smile -: 0=Normal symmetrical movement -: 1=Minor paralysis (flattened nasolabial fold, asymmetry on smiling). -: 2=Partial paralysis (total or near total paralysis of lower face). -: 3=Complete paralysis of upper and lower face 4. Responses: 2 5. Motor functions (left arm): Alternate sides and extend each arm with palms down (90 degrees if sitting or 45 degrees for supine). -: 0=No drift;limb holds for full 10 seconds. -: 1=Drift; limb holds but drifts down before full 10 seconds, but does not hit bed. -: 2=Some effort against gravity; limb cannot get to or maintain position. -: 3=No effort against gravity; limb falls. -: 4=No movement. -: UN=Amputation, joint fusion, explain in comments. 5. Responses (left arm): 0 5. Motor Functions (right arm): Alternate sides and extend each arm with palms down (90 degrees if sitting or 45 degrees for supine). -: 0=No drift;limb holds for full 10 seconds. -: 1=Drift; limb holds but drifts down before full 10 seconds, but does not hit bed. -: 2=Some effort against gravity; limb cannot get to or maintain position. -: 3=No effort against gravity; limb falls. -: 4=No movement. -: UN=Amputation, joint fusion, explain in comments. 5. Responses (right arm): 0 6. Motor Functions (left leg): With patient lying supine, alternate sides and extend each leg (30 degrees always while supine). -: 0=No drift, leg holds position for full 5 seconds -: 1=Drift; leg falls before full 5 seconds but does not hit bed. -: 2=Some effort against gravity, leg falls to bed but some effort against gravity. -: 3=No effort against gravity, leg falls to bed immediately. -: 4=No movement. -: UN=Amputation, joint fusion; explain in comments. 6. Responses (left leg): 0 6. Motor Functions (right leg): With patient lying supine, alternate sides and extend each leg (30 degrees always while supine). -: 0=No drift, leg holds position for full 5 seconds -: 1=Drift; leg falls before full 5 seconds but does not hit bed. -: 2=Some effort against gravity, leg falls to bed but some effort against gravity. -: 3=No effort against gravity, leg falls to bed immediately. -: 4=No movement. -: UN=Amputation, joint fusion; explain in comments. 6. Responses (right leg): 2 7. Limb Ataxia: With eyes open instruct patient to: -: a. "Touch your finger to your nose". -: b. "Touch your heel to your soto" -: 0=Absent -: 1=Present in one limb. -: 2=Present in two limbs. -: UN=Amputation or joint fusion; explain in comments. 7. Responses: 0 8. Sensory: Test sensation using pinprick or noxious stimuli. Test as many body parts as possible. -: 0=Normal;no sensory loss -: 1=Mile to moderate sensory loss (patient feels pin prick but is less sharp on affected side). -: 2=Severe or total sensory loss. 8. Responses: 0 9. Best Language: Instruct patient to: -: a. "Describe what you see in this picture." -: b. "Name the items in this picture." -: c. "Read these sentences." -: 0=No aphasia, normal -: 1=Mild to moderate aphasia. -: 2=Severe aphasia -: 3=Mute, global aphasia, no usable speech or auditory comprehension. 9. Responses: 2 10. Articulation, Dysarthia: Instruct patient to: -: "Read these words" or "Repeat these words" -: 0=Normal -: 1=Mild to moderate; patient may slur some words but can be understood without difficulty. -: 2=Severe; patients speech so slurred as to be unintelligible in the absence of dysphasia. -: UN=Intubated or other physical barrier, explain in comments. 10. Responses: 0 11. Extinction or inattention: 0=No abnormality -: 1= Visual, tactile, auditory, spatial, or personal inattention or extinction to bilateral simulation in one or the sensory modalities. -: 2=Profound danya-inattention or danya-inattention to more than one modality; does not recognize own hand. 11. Responses: 0 Total Score: 9 Discharge - Discharge Clinical Impression: Stroke Condition: Stable Disposition: [facility]
[2018-12-17 23:17] LABS: ABSOLUTE BASOPHILS # (AUTO) 0.1 10^3/uL (0.0-0.2); ABSOLUTE LYMPHOCYTES (AUTO) 1.1 10^3/uL (0.5-4.7); ABSOLUTE NEUT (AUTO) 13.9 10^3/uL (1.7-8.2); BASOPHILS % (AUTO) 0.3 % (0-2); HEMATOCRIT 42.7 % (37.9-51.0); HEMOGLOBIN 15.2 g/dL (13.5-17.0); LYMPHOCYTES % (AUTO) 6.7 % (13-45); MEAN CORPUSCULAR HEMOGLOBIN 28.2 pg (27.0-33.4); MEAN CORPUSCULAR HGB CONC 35.6 g/dL (32.0-36.0); MEAN CORPUSCULAR VOLUME 79 fl (80-97); MONOCYTES % (AUTO) 6.1 % (3-13); PLATELET COUNT 215 10^3/uL (150-450); RED BLOOD COUNT 5.38 10^6/uL (4.35-5.55); RED CELL DISTRIBUTION WIDTH 12.9 % (11.5-14.0); SEGMENTED NEUTROPHILS % (AUTO) 86.9 % (42-78); TOTAL CELLS COUNTED % (AUTO) 100 %; WHITE BLOOD COUNT 16.1 10^3/uL (4.0-10.5)
--- NOTE | 2018-12-17 23:17 | RADIOLOGY REPORT (SQ) ---
EXAM DESCRIPTION: XR CHEST 1 VIEW COMPLETED DATE/TME: 12/17/2018 22:46 CLINICAL HISTORY: 73 years, Male, left sided facial droop COMPARISON: 06/26/2018 chest NUMBER OF VIEWS: 1 TECHNIQUE: Portable chest LIMITATIONS: None. FINDINGS: Heart size is normal. Osteopenia. Lungs clear. No pneumothorax IMPRESSION: Negative chest copyright 2010 [employer] [facility] [employer]- All Rights Reserved
[2018-12-17 23:23] LABS: INTERNATIONAL RATION (INR) 0.99; PROTHROMBIN TIME 13.6 SEC (11.4-15.4)
[2018-12-17 23:28] LABS: ALANINE AMINOTRANSFERASE 28 U/L (21-72); ALBUMIN 4.1 g/dL (3.5-5.0); ALKALINE PHOSPHATASE 119 U/L (38-126); ANION GAP 14 (5-19); ASPARTATE AMINO TRANSFERASE 44 U/L (17-59); BILIRUBIN,DIRECT 0.3 mg/dL (0.0-0.4); BILIRUBIN,TOTAL 1.4 mg/dL (0.2-1.3); BLOOD UREA NITROGEN 9 mg/dL (7-20); CALCIUM 9.5 mg/dL (8.4-10.2); CARBON DIOXIDE 24 mmol/L (22-30); CHLORIDE 89 mmol/L (98-107); CREATINE KINASE 971 U/L (55-170); GLUCOSE 245 mg/dL (75-110); POTASSIUM 3.5 mmol/L (3.6-5.0); SODIUM 126.8 mmol/L (137-145); TOTAL PROTEIN 7.4 g/dL (6.3-8.2)
[2018-12-17 23:33] LABS: ALCOHOL < 10 mg/dL (NONE DETECTED)
[2018-12-17] MEDS ORDERED: ALTEPLASE INJ 100 MG VIAL IV ONE (23:37)
[2018-12-17 23:39] LABS: CREATINE KINASE MB 10.5 ng/mL (<4.55)
[2018-12-17 23:41] LABS: TROPONIN I 0.288 ng/mL
--- NOTE | 2018-12-17 23:46 | RADIOLOGY REPORT (SQ) ---
EXAM DESCRIPTION: CLINICAL HISTORY: 73 years Male trauma COMPARISON: None. TECHNIQUE: Left knee, two views FINDINGS: No acute fractures or dislocations are identified. No osseous destructive lesions. No joint effusion is noted. IMPRESSION: No acute fracture is identified.
--- NOTE | 2018-12-17 23:47 | RADIOLOGY REPORT (SQ) ---
EXAM DESCRIPTION: XR ELBOW 1-2 VIEWS COMPLETED DATE/TME: 12/17/2018 23:08 CLINICAL HISTORY: 73 years ,Male trauma COMPARISON: None. TECHNIQUE: LEFT elbow, two view FINDINGS: No acute fractures or dislocations are identified. No osseous destructive lesions. There is significant degenerative change around the elbow with spurring along the radial head, the coronoid process and the olecranon. A direct lateral view was not provided. No evidence of joint effusion. IMPRESSION: No definite fracture noted Moderate to severe degenerative change Suboptimal positioning in the lateral projection
--- NOTE | 2018-12-17 23:49 | RADIOLOGY REPORT (SQ) ---
EXAM DESCRIPTION: HIP LEFT AP/LATERAL [facility]: XR HIP 2 OR MORE VIEWS Views: 2 , AP pelvis and frog-leg view of left hip. CLINICAL HISTORY: 73 years Male, trauma COMPARISON: None. FINDINGS: AP pelvis: No fracture or diastasis. Degenerative changes are partially visualized in the lower lumbar spine. Left hip additional view: No fracture or dislocation. IMPRESSION: 1. No acute findings.
[2018-12-18 00:06] VITALS: BP 145/97
--- NOTE | 2018-12-18 22:19 | EKG REPORT ---
SEVERITY:- ABNORMAL ECG - SINUS RHYTHM LEFT ANTERIOR FASCICULAR BLOCK BORDERLINE PROLONGED QT INTERVAL : Confirmed by: Haley Mccann MD 18-Dec-2018 22:18:47
== END 2018-12-17 23:55 | disposition short-term general hospital (02) ==
LOC: ER 22:44
DX: I63.9 Cerebral infarction, unspecified (principal); G83.11 Monoplegia of lower limb affecting right dominant side; R29.709 NIHSS score 9; R29.810 Facial weakness; M62.81 Muscle weakness (generalized); R47.01 Aphasia; R41.0 Disorientation, unspecified; I10 Essential (primary) hypertension; S80.02XA Contusion of left knee, initial encounter; S50.02XA Contusion of left elbow, initial encounter; S70.02XA Contusion of left hip, initial encounter; W19.XXXA Unspecified fall, initial encounter; J44.9 Chronic obstructive pulmonary disease, unspecified; E11.9 Type 2 diabetes mellitus without complications
CPT/HCPCS: 93005; 99291; 96374; 36415; 82553; 82962; 80307; 82550; 85025; 85610; 85730; 80053; 84484; 71045; 73070; 73502; 73560; 70450; 93010; J2997

== ENCOUNTER 2019-05-20 17:10 | Observation (INO) | payer MEDICARE, OTHER ==
--- NOTE | 2019-05-20 17:24 | ER Document Report ---
ED Medical Screen (RME) - General Chief Complaint: General Weakness Stated Complaint: MULTIPLE FALLS/WEAKNESS Time Seen by Provider: 05/20/19 17:15 Primary Care Provider: NIDHI NULL MD [Primary Care Provider] - Follow up as needed Mode of Arrival: Ambulatory Information source: Patient Notes: 74-year-old male with history of diabetes and high blood sugar pressure presents emergency department with feeling weak falling. Reports he has pain in his bilateral lower legs which is causing him to be in stable. He reports he is fallen 3 times in the past week once he hit his head twice he landed on his buttocks. Patient reports his sugars are high been average not high not low. Patient lives alone. Reports he put in for Meals on Wheels a couple weeks ago. I have greeted and performed a rapid initial assessment of this patient. A comprehensive ED assessment and evaluation of the patient, analysis of test results and completion of the medical decision making process will be conducted by additional ED providers. Dictation of this chart was performed using voice recognition software; therefore, there may be some unintended grammatical errors. TRAVEL OUTSIDE OF THE [place] IN LAST 30 DAYS: No - Related Data Allergies/Adverse Reactions: No Known Allergies Allergy (Verified 05/20/19 17:16) Past Medical History - Past Medical History Cardiac Medical History: Reports: Hx Hypercholesterolemia, Hx Hypertension Denies: Hx Heart Attack Pulmonary Medical History: Reports: Hx COPD Denies: Hx Asthma, Hx Tuberculosis Neurological Medical History: Reports: Hx Seizures - 2013 D/T DIABETES. Denies: Hx Cerebrovascular Accident Endocrine Medical History: Reports: Hx Diabetes Mellitus Type 2 Renal/ Medical History: Denies: Hx Peritoneal Dialysis GI Medical History: Reports: Hx Gastroesophageal Reflux Disease. Denies: Hx Hepatitis, Hx Hiatal Hernia, Hx Ulcer Psychiatric Medical History: Reports: Hx Depression Infectious Medical History: Denies: Hx Hepatitis Past Surgical History: Reports: Hx Orthopedic Surgery - RLE, right carpal tunnel, Hx Tonsillectomy. Denies: Hx Open Heart Surgery, Hx Pacemaker - Immunizations Hx Diphtheria, Pertussis, Tetanus Vaccination: Yes - 2010 Physical Exam - Vital signs Vitals: Temp Pulse Resp BP Pulse Ox 97.7 F 93 18 180/87 H 95 05/20/19 17:14 05/20/19 17:14 05/20/19 17:14 05/20/19 17:14 05/20/19 17:14 Course - Vital Signs Vital signs: Temp Pulse Resp BP Pulse Ox 97.7 F 93 18 180/87 H 95 05/20/19 17:14 05/20/19 17:14 05/20/19 17:14 05/20/19 17:14 05/20/19 17:14 Doctor's Discharge - Discharge Referrals: NIDHI NULL MD [Primary Care Provider] - Follow up as needed
--- NOTE | 2019-05-20 17:58 | RADIOLOGY REPORT (SQ) ---
EXAM DESCRIPTION: CT HEAD WITHOUT COMPLETED DATE/TIME: 05/20/2019 5:37 pm REASON FOR STUDY: fall, hit head COMPARISON: 12/09/2018 TECHNIQUE: Axial images acquired through the brain without intravenous contrast. Images reviewed wit h bone, brain and subdural windows. Images stored on PACS. All CT scanners at this facility use dose modulation, iterative reconstruction, and/or weight based d osing when appropriate to reduce radiation dose to as low as reasonably achievable (ALARA). [facility]: Dose Right [facility]: CareDose [facility]: Dose Right [facility]: Teradose 4D [facility]: Smart [employer] Vision Systems RADIATION DOSE: CT Rad equipment meets quality standard of care and radiation dose reduction techniq ues were employed. CTDIvol: 53.2 mGy. DLP: 1017 mGy-cm.. LIMITATIONS: None. FINDINGS: VENTRICLES: Normal size and contour. CEREBRUM: No masses. No hemorrhage. No midline shift. Age appropriate white matter. No evidence for a cute infarction. CEREBELLUM: No masses. No hemorrhage. No alteration of density. No evidence for acute infarction. EXTRA-AXIAL SPACES: No fluid collections. ORBITS AND GLOBE: No intra- or extraconal masses. Normal contour of globe without masses. CALVARIUM: No fracture. PARANASAL SINUSES: No fluid or mucosal thickening. SOFT TISSUES: No mass or hematoma. OTHER: No other significant finding. IMPRESSION: NO ACUTE INTRACRANIAL FINDINGS. EVIDENCE OF ACUTE STROKE: NO. TECHNICAL DOCUMENTATION: JOB ID: [id number] Quality ID # [id number]: Final reports with documentation of one or more dose reduction techniques (e.g., Au tomated exposure control, adjustment of the mA and/or kV according to patient size, use of iterative reconstruction technique) 2010 [employer]- All Rights Reserved Reading location - IP/workstation name: [place] [facility]
[2019-05-20 18:29] LABS: ABSOLUTE BASOPHILS # (AUTO) 0.1 10^3/uL (0.0-0.2); ABSOLUTE EOSINOPHILS # (AUTO) 0.1 10^3/uL (0.0-0.6); ABSOLUTE LYMPHOCYTES (AUTO) 2.5 10^3/uL (0.5-4.7); ABSOLUTE MONOCYTES (AUTO) 0.9 10^3/uL (0.1-1.4); ABSOLUTE NEUT (AUTO) 6.7 10^3/uL (1.7-8.2); BASOPHILS % (AUTO) 0.5 % (0-2); EOSINOPHILS % (AUTO) 0.5 % (0-6); HEMATOCRIT 40.2 % (37.9-51.0); HEMOGLOBIN 14.6 g/dL (13.5-17.0); LYMPHOCYTES % (AUTO) 24.5 % (13-45); MEAN CORPUSCULAR HEMOGLOBIN 28.3 pg (27.0-33.4); MEAN CORPUSCULAR HGB CONC 36.4 g/dL (32.0-36.0); MEAN CORPUSCULAR VOLUME 78 fl (80-97); MONOCYTES % (AUTO) 8.8 % (3-13); PLATELET COUNT 240 10^3/uL (150-450); RED BLOOD COUNT 5.16 10^6/uL (4.35-5.55); RED CELL DISTRIBUTION WIDTH 13.7 % (11.5-14.0); SEGMENTED NEUTROPHILS % (AUTO) 65.7 % (42-78); TOTAL CELLS COUNTED % (AUTO) 100 %; WHITE BLOOD COUNT 10.3 10^3/uL (4.0-10.5)
[2019-05-20 18:48] LABS: ALBUMIN 3.7 g/dL (3.5-5.0); ALKALINE PHOSPHATASE 88 U/L (38-126); ANION GAP 8 (5-19); ASPARTATE AMINO TRANSFERASE 143 U/L (17-59); BILIRUBIN,DIRECT 0.1 mg/dL (0.0-0.4); BILIRUBIN,TOTAL 1.1 mg/dL (0.2-1.3); BLOOD UREA NITROGEN 21 mg/dL (7-20); CALCIUM 8.7 mg/dL (8.4-10.2); CARBON DIOXIDE 31 mmol/L (22-30); CHLORIDE 90 mmol/L (98-107); GLUCOSE 141 mg/dL (75-110); POTASSIUM 3.3 mmol/L (3.6-5.0); TOTAL PROTEIN 6.6 g/dL (6.3-8.2)
--- NOTE | 2019-05-20 18:51 | EKG REPORT ---
SEVERITY:- ABNORMAL ECG - SINUS RHYTHM LEFT ANTERIOR FASCICULAR BLOCK BORDERLINE T WAVE ABNORMALITIES : Confirmed by: Abdi Goode MD 20-May-2019 18:50:08
[2019-05-20] MEDS ORDERED: POTASSIUM CHLORIDE 20 MEQ PACKET PO ONE (19:18)
--- NOTE | 2019-05-20 19:18 | ER Document Report ---
ED General - General Chief Complaint: Fall Stated Complaint: MULTIPLE FALLS/WEAKNESS Time Seen by Provider: 05/20/19 17:15 Mode of Arrival: Ambulatory Notes: Patient is a 74-year-old male that presents to the emergency department for chief complaint of frequent falls and generalized weakness. Patient states over the past week he is fallen 3 times last one was 2 days ago, stating that he feels weak in his lower extremities. He said some pain in his hips from his falls as well. He states in 1 of his falls he fell and did grazed his head, but did not injure his neck or lose consciousness. That occurred 2 days ago. He denies having any back pain, or any unilateral numbness, weakness or tingling. Denies any saddle anesthesias or paresthesias. He states he feels just more off balance and that is why he is been falling. Denies any lightheadedness or room spinning or vertigo-like symptoms, denies having any headache, lightheadedness or blurred vision. He also denies having any chest pain, shortness of breath, nausea, vomiting or abdominal pain. Past Medical History: Alcoholism, hypertension, diabetes mellitus Past Surgical History: Denies any recent or pertinent surgical history Social History: Admits to smoking cigarettes, and alcohol use on a regular basis, denies illicit drug use. Lives at home by himself. Family History: Reviewed and noncontributory for presenting illness Allergies: Reviewed, see documented allergy list. REVIEW OF SYSTEMS: Other than noted above, the 12 point review of systems was reviewed with the patient and were negative, all pertinent findings are included in the HPI. PHYSICAL EXAMINATION: Vital signs reviewed, nursing noted reviewed. GENERAL: elderly male, poor hygiene HEAD: Atraumatic, normocephalic. EYES: Eyes appear normal, extraocular movements intact, sclera anicteric, conjunctiva are normal. ENT: nares patent, oropharynx clear without exudates. Moist mucous membranes. NECK: Normal range of motion, supple without lymphadenopathy LUNGS: Breath sounds clear to auscultation bilaterally and equal. No wheezes rales or rhonchi. HEART: Regular rate and rhythm without murmurs ABDOMEN: Soft, nontender, normoactive bowel sounds. No rebound, guarding, or rigidity. No masses appreciated. EXTREMITIES: Nontender, good range of motion, no pitting or edema. NEUROLOGICAL: No focal neurological deficits. Moves all extremities spontaneously Motor and sensory grossly intact on exam. Normal [id number] testing, normal heel soto testing as well. No focal deficits on exam in fact the patient actually has good strength +5/5 distally in all extremities. PSYCH: Normal mood, normal affect. SKIN: Warm, Dry, normal turgor, no rashes or lesions noted on exposed skin TRAVEL OUTSIDE OF THE [place] IN LAST 30 DAYS: No - Related Data Allergies/Adverse Reactions: No Known Allergies Allergy (Verified 05/20/19 17:16) Past Medical History - General Information source: Patient - Social History Smoking Status: Current Every Day Smoker Chew tobacco use (# tins/day): No Frequency of alcohol use: Occasional Drug Abuse: None Family History: Reviewed & Not Pertinent Patient has suicidal ideation: No Patient has homicidal ideation: No - Past Medical History Cardiac Medical History: Reports: Hx Hypercholesterolemia, Hx Hypertension Denies: Hx Heart Attack Pulmonary Medical History: Reports: Hx COPD Denies: Hx Asthma, Hx Tuberculosis Neurological Medical History: Reports: Hx Seizures - 2013 D/T DIABETES. Denies: Hx Cerebrovascular Accident Endocrine Medical History: Reports: Hx Diabetes Mellitus Type 2 Renal/ Medical History: Denies: Hx Peritoneal Dialysis GI Medical History: Reports: Hx Gastroesophageal Reflux Disease. Denies: Hx Hepatitis, Hx Hiatal Hernia, Hx Ulcer Psychiatric Medical History: Reports: Hx Depression Infectious Medical History: Denies: Hx Hepatitis Past Surgical History: Reports: Hx Orthopedic Surgery - RLE, right carpal tunnel, Hx Tonsillectomy. Denies: Hx Open Heart Surgery, Hx Pacemaker - Immunizations Hx Diphtheria, Pertussis, Tetanus Vaccination: Yes - 2010 Hx Pneumococcal Vaccination: 07/23/12 Physical Exam - Vital signs Vitals: Temp Pulse Resp BP Pulse Ox 97.7 F 93 18 180/87 H 95 05/20/19 17:14 05/20/19 17:14 05/20/19 17:14 05/20/19 17:14 05/20/19 17:14 Course - Re-evaluation Re-evalutation: Patient seen and examined vital signs reviewed. Laboratory data and imaging were ordered as appropriate for the patient's presenting symptoms and complaint, with consideration of any critical or life threatening conditions that may be associated with their obtained history and exam as noted above. Patient was treated with IV fluid bolus and given potassium replacement Results were reviewed when available and demonstrated mild hyponatremia and hypokalemia The patient was re-evaluated and was stable, CT imaging of the head was negative, and x-ray of the pelvis was negative for any evidence of fracture. Evaluation was most consistent with hyponatremia and hypokalemia, generalized weakness, feel the patient is unsafe to be discharged home given his frequent falls. Results were discussed with the patient at this point after careful consideration I feel that that patient should be admitted to the hospital. This was discussed with the patient that it is in the best interest for their care to be admitted for further evaluation and management. Patient agreed with this plan of care. A call was placed to the admitting physician, Dr. Gutierres who graciously accepted the patient onto their service. *Note is created using voice recognition software and may contain spelling, syntax or grammatical errors. Laboratory 05/20/19 05/20/19 05/20/19 17:47 18:10 18:10 WBC 10.3 RBC 5.16 Hgb 14.6 Hct 40.2 MCV 78 L MCH 28.3 MCHC 36.4 H RDW 13.7 Plt Count 240 Lymph % (Auto) 24.5 [place] % (Auto) 8.8 Eos % (Auto) 0.5 Baso % (Auto) 0.5 Absolute Neuts (auto) 6.7 Absolute Lymphs (auto) 2.5 Absolute Monos (auto) 0.9 Absolute Eos (auto) 0.1 Absolute Basos (auto) 0.1 Seg Neutrophils % 65.7 Sodium 129.4 L Potassium 3.3 L Chloride 90 L Carbon Dioxide 31 H Anion Gap 8 BUN 21 H Creatinine 1.10 Est GFR ( Amer) > 60 Est GFR (MDRD) Non-Af > 60 Glucose 141 H POC Glucose 144 H Calcium 8.7 Total Bilirubin 1.1 Direct Bilirubin 0.1 Neonat Total Bilirubin Not Reportable Neonat Direct Bilirubin Not Reportable Neonat Indirect Bili Not Reportable AST 143 H ALT 78 Alkaline Phosphatase 88 Total Protein 6.6 Albumin 3.7 Urine Color Urine Appearance Urine pH Ur Specific [place] Urine Protein Urine Glucose (UA) Urine Ketones Urine Blood Urine Nitrite (Reflex) Urine Bilirubin Urine Urobilinogen Leukocyte Esterase Rfl Urine RBC (Auto) Urine Ascorbic Acid Serum Alcohol 05/20/19 05/20/19 18:10 20:02 WBC RBC Hgb Hct MCV MCH MCHC RDW Plt Count Lymph % (Auto) [place] % (Auto) Eos % (Auto) Baso % (Auto) Absolute Neuts (auto) Absolute Lymphs (auto) Absolute Monos (auto) Absolute Eos (auto) Absolute Basos (auto) Seg Neutrophils % Sodium Potassium Chloride Carbon Dioxide Anion Gap BUN Creatinine Est GFR ( Amer) Est GFR (MDRD) Non-Af Glucose POC Glucose Calcium Total Bilirubin Direct Bilirubin Neonat Total Bilirubin Neonat Direct Bilirubin Neonat Indirect Bili AST ALT Alkaline Phosphatase Total Protein Albumin Urine Color YELLOW Urine Appearance CLEAR Urine pH 6.0 Ur Specific [place] 1.006 Urine Protein NEGATIVE Urine Glucose (UA) NEGATIVE Urine Ketones NEGATIVE Urine Blood SMALL H Urine Nitrite (Reflex) NEGATIVE Urine Bilirubin NEGATIVE Urine Urobilinogen 2.0 H Leukocyte Esterase Rfl NEGATIVE Urine RBC (Auto) 1 Urine Ascorbic Acid NEGATIVE Serum Alcohol < [address] 05/20/19 17:19 IMPRESSION: NO ACUTE INTRACRANIAL FINDINGS. EVIDENCE OF ACUTE STROKE: NO. Pelvis X-Ray 05/20/19 19:31 IMPRESSION: No fracture. - Vital Signs Vital signs: Temp Pulse Resp BP Pulse Ox 98.3 F 93 18 139/73 H 100 05/20/19 21:36 05/20/19 17:14 05/20/19 21:36 05/20/19 21:36 05/20/19 21:35 - Laboratory Result Diagrams: 05/20/19 18:10 05/20/19 18:10 Laboratory results interpreted by me: 05/20/19 05/20/19 05/20/19 17:47 18:10 18:10 MCV 78 L MCHC 36.4 H Sodium 129.4 L Potassium 3.3 L Chloride 90 L Carbon Dioxide 31 H BUN 21 H Glucose 141 H POC Glucose 144 H AST 143 H Urine Blood Urine Urobilinogen 05/20/19 20:02 MCV MCHC Sodium Potassium Chloride Carbon Dioxide BUN Glucose POC Glucose AST Urine Blood SMALL H Urine Urobilinogen 2.0 H - EKG Interpretation by Me Additional EKG results interpreted by me: EKG demonstrates sinus rhythm with a ventricular rate of 83 bpm, left axis deviation, QTC 456 ms, no evidence of acute ischemia in this EKG when compared to prior EKG from 12/17/2017. Discharge - Discharge Clinical Impression: Weakness, Alcohol abuse, Hyponatremia Fall at home Qualifiers: Encounter type: initial encounter Qualified Code(s): W19.XXXA - Unspecified fall, initial encounter; Y92.009 - Unspecified place in unspecified non- institutional (private) residence as the place of occurrence of the external cause Condition: Stable Disposition: ADMITTED OBSERVATION Admitting Provider: Bhavik Unit Admitted: [facility]
[2019-05-20 20:11] LABS: APPEARANCE,URINE CLEAR; BILIRUBIN,URINE NEGATIVE (NEGATIVE); COLOR,URINE YELLOW; GLUCOSE, URINE NEGATIVE (NEGATIVE); KETONES,URINE NEGATIVE (NEGATIVE); PROTEIN,URINE NEGATIVE (NEGATIVE); URINE SPECIFIC GRAVITY 1.006
--- NOTE | 2019-05-20 20:43 | RADIOLOGY REPORT (SQ) ---
XR PELVIS 1-2 VIEWS CLINICAL STATEMENT: bilateral hip pain, falls COMPARISON: None FINDINGS: Bony alignment is anatomic. There is no fracture or dislocation. The soft tissues are unremarkable. Mild bilateral hip degenerative changes. IMPRESSION: No fracture.
[2019-05-21] MEDS ORDERED: INFLUENZA QUAD (6MOS+) 2019-20 VAC 0.5 ML SYR IM ONE (01:44)
[2019-05-21] MEDS ORDERED: DEXTROSE 50%-WATER SYRINGE 12.5 GM/25 ML DOSE IV PRN (02:30)
[2019-05-21] MEDS ORDERED: DEXTROSE 50%-WATER SYRINGE 25 GM/50 ML DOSE IV PRN (02:30)
[2019-05-21] MEDS ORDERED: DEXTROSE 40% GEL 15 GM TUBE X 2 PO PRN (02:30)
[2019-05-21] MEDS ORDERED: DEXTROSE 40% GEL 15 GM TUBE PO PRN (02:30)
[2019-05-21] MEDS ORDERED: GLUCAGON,HUMAN RECOMB 1 MG INJ IM PRN (02:30)
[2019-05-21] MEDS: INSULIN LISPRO 100 UNIT/ML 3 ML VIAL SUBCUT SCH ×4 (08:28→22:51)
[2019-05-21] MEDS: NORMAL SALINE 1000 ML 1,000 ML IV PRN ×2 (11:03→22:51)
[2019-05-21] MEDS: ENOXAPARIN SODIUM INJ 40 MG/0.4 ML DISP.SYRIN SUBCUT SCH (11:04)
[2019-05-21] MEDS: NICOTINE 21 MG/24 HR PATCH.TD24 TD PRN (11:09)
[2019-05-21] MEDS: PANTOPRAZOLE SODIUM 40 MG TABLET.DR PO SCH (11:33)
--- NOTE | 2019-05-21 23:08 | PDOC H&P ---
History of Present Illness Admission Date/PCP: 05/20/19 21:27 NIDHI NULL History of Present Illness: DONA JULIO JR is a 74 year old male known to my practice who presented to the ED with complain of recurrent falls and generalized weakness over last couple of days. Patient described episodes of falls as his legs gave under him. He landed on his buttocks twice and backward once with heating his head but no traumatic injuries. He denied losing his consciousness or any associated seizure activities. Patient denied recent alcohol abuse or illicit drug usage. He did admit to longstanding history of lower back pain and pain shooting down his legs. He denied any focal weakness, dizziness, vertigo,headache, nausea or vomiting. He reported satisfactory appetite and oral intake. Patient reported satisfactory home blood glucose monitoring. His initial evaluation in the ED was significant for hyponatremia and some degree of dehydration. He was advised hospitalization for further evaluation and management. His morbidities are as listed below. Past Medical History Cardiac Medical History: Reports: Hyperlipidema, Hypertension Denies: Myocardial Infarction Pulmonary Medical History: Reports: Chronic Obstructive Pulmonary Disease (COPD) Denies: Asthma, Tuberculosis Neurological Medical History: Reports: Seizures - 2013 D/T DIABETES Endocrine Medical History: Reports: Diabetes Mellitus Type 2 GI Medical History: Reports: Gastroesophageal Reflux Disease Denies: Hepatitis, Hiatal Hernia Psychiatric Medical History: Reports: Depression Hematology: Denies: Anemia, Sickle Cell Disease Past Surgical History Past Surgical History: Reports: Orthopedic Surgery - RLE, right carpal tunnel, Tonsillectomy Denies: Pacemaker Social History Smoking Status: Current Every Day Smoker Cigarettes Packs Per Day: 0.7 Electronic Cigarette use?: No Number of Years Smokin Frequency of Alcohol Use: Heavy Hx Recreational Drug Use: No Drugs: None Hx Prescription Drug Abuse: No - Advance Directive Resuscitation Status: Full Code Family History Family History: Reviewed & Not Pertinent Parental Family History Reviewed: Yes Children Family History Reviewed: Yes Sibling(s) Family History Reviewed.: Yes Medication/Allergy Home Medications: No Home Medications 05/21/19 Allergies/Adverse Reactions: No Known Allergies Allergy (Verified 05/20/19 17:16) Review of Systems Constitutional: ABSENT: chills, fever(s), headache(s), weight gain, weight loss Eyes: PRESENT: visual disturbances Ears: ABSENT: hearing changes Nose, Mouth, and Throat: ABSENT: as per HPI, headache(s), mouth pain, sore throat, vertigo, other Cardiovascular: ABSENT: chest pain, dyspnea on exertion, edema, orthropnea, palpitations Respiratory: ABSENT: cough, hemoptysis Gastrointestinal: ABSENT: abdominal pain, constipation, diarrhea, hematemesis, hematochezia, nausea, vomiting Genitourinary: ABSENT: dysuria, hematuria Musculoskeletal: ABSENT: joint swelling Integumentary: ABSENT: rash, wounds Neurological: PRESENT: abnormal gait - ambulate with straight cane and walker assistance. ABSENT: abnormal speech, confusion, dizziness, focal weakness, syncope Psychiatric: ABSENT: anxiety, depression, homidical ideation, suicidal ideation Endocrine: ABSENT: cold intolerance, heat intolerance, polydipsia, polyuria Hematologic/Lymphatic: ABSENT: easy bleeding, easy bruising, lymphadenopathy Allergic/Immunologic: ABSENT: seasonal rhinorrhea Physical Exam Vital Signs: Temp Pulse Resp BP Pulse Ox 98.0 F 83 24 H 150/87 H 97 05/21/19 04:01 05/21/19 04:01 05/21/19 04:01 05/21/19 04:01 05/21/19 04:01 Intake & Output 05/20/19 05/21/19 05/22/19 06:59 06:59 06:59 Intake Total 100 Output Total 672 Balance -572 Weight 68.6 kg General appearance: PRESENT: no acute distress, well-developed, well-nourished Head exam: PRESENT: atraumatic, normocephalic Eye exam: PRESENT: conjunctiva pink, EOMI, PERRLA. ABSENT: scleral icterus Ear exam: PRESENT: normal external ear exam Mouth exam: PRESENT: moist, neck supple, tongue midline Throat exam: ABSENT: post pharyngeal erythema, tonsillar erythema, tonsillar exudate, tonsillogmegaly, other Neck exam: PRESENT: full ROM. ABSENT: carotid bruit, JVD, lymphadenopathy, thyromegaly Respiratory exam: PRESENT: clear to auscultation yahir Cardiovascular exam: PRESENT: RRR. ABSENT: diastolic murmur, rubs, systolic murmur Vascular exam: ABSENT: pallor GI/Abdominal exam: PRESENT: normal bowel sounds, soft. ABSENT: distended, guarding, mass, organolmegaly, rebound, tenderness Rectal exam: PRESENT: deferred Extremities exam: ABSENT: pedal edema Neurological exam: PRESENT: alert, awake, oriented to person, oriented to place, oriented to time, oriented to situation, CN II-XII grossly intact. ABSENT: motor sensory deficit Psychiatric exam: PRESENT: appropriate affect, normal mood. ABSENT: homicidal ideation, suicidal ideation Skin exam: PRESENT: dry, warm Results Laboratory Results: 05/20/19 18:10 05/20/19 18:10 05/20/19 05/20/19 05/20/19 18:10 18:10 20:02 WBC 10.3 RBC 5.16 Hgb 14.6 Hct 40.2 MCV 78 L MCH 28.3 MCHC 36.4 H RDW 13.7 Plt Count 240 Seg Neutrophils % 65.7 Sodium 129.4 L Potassium 3.3 L Chloride 90 L Carbon Dioxide 31 H Anion Gap 8 BUN 21 H Creatinine 1.10 Est GFR ( Amer) > 60 Glucose 141 H Calcium 8.7 Total Bilirubin 1.1 AST 143 H Alkaline Phosphatase 88 Total Protein 6.6 Albumin 3.7 Urine Color YELLOW Urine Appearance CLEAR Urine pH 6.0 Ur Specific [place] 1.006 Urine Protein NEGATIVE Urine Glucose (UA) NEGATIVE Urine Ketones NEGATIVE Urine Blood SMALL H Urine RBC (Auto) 1 Impressions: Head CT 05/20/19 17:19 IMPRESSION: NO ACUTE INTRACRANIAL FINDINGS. EVIDENCE OF ACUTE STROKE: NO. Pelvis X-Ray 05/20/19 19:31 IMPRESSION: No fracture. Assessment & Plan - Diagnosis (1) Hyponatremia Is this a current diagnosis for this admission?: Yes Plan: See admitting attending physician orders for details about care plan. (2) Recurrent falls while walking Is this a current diagnosis for this admission?: Yes Plan: See admitting attending physician orders for details about care plan. (3) Bilateral hip joint arthritis Plan: See admitting attending physician orders for details about care plan. (4) Chronic back pain Qualifiers: Back pain location: low back pain Is this a current diagnosis for this admission?: Yes Plan: Obtain lumbosacral spine X ray. See admitting attending physician orders for details about care plan. (5) Diabetes mellitus type 2 in nonobese Is this a current diagnosis for this admission?: Yes Plan: See admitting attending physician orders for details about care plan. (6) HTN (hypertension) Qualifiers: Hypertension type: essential hypertension Is this a current diagnosis for this admission?: Yes Plan: See admitting attending physician orders for details about care plan. (7) HLD (hyperlipidemia) Qualifiers: Hyperlipidemia type: pure hypercholesterolemia Qualified Code(s): E78.00 - Pure hypercholesterolemia, unspecified Is this a current diagnosis for this admission?: Yes Plan: See admitting attending physician orders for details about care plan. (8) GERD (gastroesophageal reflux disease) Qualifiers: Esophagitis presence: without esophagitis Qualified Code(s): K21.9 - Gastro-esophageal reflux disease without esophagitis Is this a current diagnosis for this admission?: Yes Plan: See admitting attending physician orders for details about care plan. (9) Chronic alcohol abuse Is this a current diagnosis for this admission?: Yes Plan: See admitting attending physician orders for details about care plan. - Time Time Spent: 50 to 70 Minutes Medications reviewed and adjusted accordingly: Yes Anticipated discharge: Home with Homehealth Within: within 48 hours - Inpatient Certification Based on my medical assessment, after consideration of the patient's comorbidi ties, presenting symptoms, or acuity I expect that the services needed warrant INPATIENT care.: No I certify that my determination is in accordance with my understanding of Me camilaare's requirements for reasonable and necessary INPATIENT services [42 CFR 412.3e].: No Medical Necessity: Need For IV Fluids, Need For Continuous Telemetry Monitoring, Risk of Complication if Not Cared For in Hospital, Risk of Diagnosis Which Will Require Inpatient Eval/Care/Monitoring Post Hospital Care: D/C Orthotist Prosthetist Documentation - Plan Summary Plan Summary: See admitting attending physician orders for details about care plan.
[2019-05-22 06:05] LABS: ABSOLUTE BASOPHILS # (AUTO) 0.1 10^3/uL (0.0-0.2); ABSOLUTE EOSINOPHILS # (AUTO) 0.1 10^3/uL (0.0-0.6); ABSOLUTE LYMPHOCYTES (AUTO) 1.9 10^3/uL (0.5-4.7); ABSOLUTE MONOCYTES (AUTO) 0.6 10^3/uL (0.1-1.4); ABSOLUTE NEUT (AUTO) 4.4 10^3/uL (1.7-8.2); BASOPHILS % (AUTO) 0.8 % (0-2); EOSINOPHILS % (AUTO) 1.2 % (0-6); HEMATOCRIT 38.6 % (37.9-51.0); LYMPHOCYTES % (AUTO) 27.1 % (13-45); MEAN CORPUSCULAR HEMOGLOBIN 28.1 pg (27.0-33.4); MEAN CORPUSCULAR HGB CONC 36.2 g/dL (32.0-36.0); MEAN CORPUSCULAR VOLUME 78 fl (80-97); MONOCYTES % (AUTO) 8.3 % (3-13); PLATELET COUNT 193 10^3/uL (150-450); RED BLOOD COUNT 4.96 10^6/uL (4.35-5.55); RED CELL DISTRIBUTION WIDTH 13.5 % (11.5-14.0); SEGMENTED NEUTROPHILS % (AUTO) 62.6 % (42-78); TOTAL CELLS COUNTED % (AUTO) 100 %; WHITE BLOOD COUNT 7.1 10^3/uL (4.0-10.5)
[2019-05-22] MEDS: PANTOPRAZOLE SODIUM 40 MG TABLET.DR PO SCH (06:24)
[2019-05-22 06:31] LABS: ALKALINE PHOSPHATASE 78 U/L (38-126); ANION GAP 7 (5-19); ASPARTATE AMINO TRANSFERASE 66 U/L (17-59); BILIRUBIN,DIRECT 0.2 mg/dL (0.0-0.4); BILIRUBIN,TOTAL 0.6 mg/dL (0.2-1.3); BLOOD UREA NITROGEN 11 mg/dL (7-20); CALCIUM 8.6 mg/dL (8.4-10.2); CARBON DIOXIDE 25 mmol/L (22-30); CHLORIDE 105 mmol/L (98-107); CHOLESTEROL 126.04 mg/dL (0-200); GLUCOSE 132 mg/dL (75-110); POTASSIUM 3.7 mmol/L (3.6-5.0); TOTAL PROTEIN 5.7 g/dL (6.3-8.2); TRIGLYCERIDES 79 mg/dL (<150)
[2019-05-22 06:42] LABS: DIRECT LDL 84 mg/dL (<100)
[2019-05-22] MEDS: INSULIN LISPRO 100 UNIT/ML 3 ML VIAL SUBCUT SCH ×4 (08:11→21:01)
[2019-05-22] MEDS: NORMAL SALINE 1000 ML 1,000 ML IV PRN (09:54)
[2019-05-22] MEDS: ENOXAPARIN SODIUM INJ 40 MG/0.4 ML DISP.SYRIN SUBCUT SCH (09:54)
[2019-05-22] MEDS: NICOTINE 21 MG/24 HR PATCH.TD24 TD PRN (10:02)
--- NOTE | 2019-05-22 11:43 | RADIOLOGY REPORT (SQ) ---
EXAM DESCRIPTION: L SPINE 2 VIEWS COMPLETED DATE/TIME: 05/22/2019 9:09 am REASON FOR STUDY: Low back pain with recurrent falls E11.65 TYPE 2 DIABETES MELLITUS WITH HYPERGLYC EMIA COMPARISON: None. NUMBER OF VIEWS: Three views. TECHNIQUE: AP, lateral, and inferior coned down lateral views of the lumbar spine. LIMITATIONS: None. FINDINGS: MINERALIZATION: Normal. SEGMENTATION: Normal. No transitional anatomy. ALIGNMENT: Severe convex right scoliosis. VERTEBRAE: Maintained height. No fracture or worrisome bone lesion. DISCS: Multilevel disc space narrowing with osteophytes. POSTERIOR ELEMENTS: Pedicles and facets are intact. No pars defect or posterior arch defects. Facet arthropathy is present. HARDWARE: None in the spine. PARASPINAL SOFT TISSUES: Normal. PELVIS: Intact as visualized. No fractures or worrisome bone lesions. SI joints intact. OTHER: No other significant finding. IMPRESSION: SPONDYLOSIS WITHOUT BONE LESION OR FRACTURE. TECHNICAL DOCUMENTATION: JOB ID: [id number] [employer]- All Rights Reserved Reading location - IP/workstation name: [email or web address]
[2019-05-22] MEDS ORDERED: LORAZEPAM 0.5 MG TABLET PO PRN (18:46)
--- NOTE | 2019-05-22 18:57 | PDOC PROGRESS REPORT ---
Subjective Progress Note for:: 05/22/19 Subjective:: Patient expressed worsening anxiety and requested for restart of his anxiety pill that was discontinue several months ago. He denied any chest pain or difficulty with breathing. Participated in physical therapy session earlier today. No abdominal pain, nausea or vomiting. No fever or chills. Reason For Visit: RECURRENT FALLS AT HOME,HYPONATREMIA,DM TYPE 2 Physical Exam Vital Signs: Temp Pulse Resp BP Pulse Ox 98.3 F 60 17 155/81 H 97 05/22/19 15:39 05/22/19 15:39 05/22/19 15:39 05/22/19 15:39 05/22/19 15:39 Intake & Output 05/21/19 05/22/19 05/23/19 06:59 06:59 06:59 Intake Total 100 3280 1320 Output Total 672 2250 650 Balance -572 1030 670 Weight 68.6 kg 70.3 kg General appearance: PRESENT: no acute distress, well-developed, well-nourished Head exam: PRESENT: atraumatic, normocephalic Eye exam: PRESENT: conjunctiva pink. ABSENT: scleral icterus Ear exam: PRESENT: TM's normal bilaterally Mouth exam: PRESENT: moist Respiratory exam: PRESENT: clear to auscultation yahir Cardiovascular exam: PRESENT: RRR. ABSENT: diastolic murmur, rubs, systolic murmur Vascular exam: ABSENT: pallor GI/Abdominal exam: PRESENT: normal bowel sounds, soft. ABSENT: distended, guarding, mass, organolmegaly, rebound, tenderness Extremities exam: ABSENT: pedal edema Musculoskeletal exam: PRESENT: normal inspection Neurological exam: PRESENT: alert, awake, oriented to person, oriented to place, oriented to time, oriented to situation, CN II-XII grossly intact, other - no asterixis or tremor.. ABSENT: motor sensory deficit Psychiatric exam: PRESENT: agitated, anxious Skin exam: PRESENT: dry, warm Results Laboratory Results: 05/22/19 05:52 05/22/19 05:52 05/22/19 05/22/19 05:52 05:52 WBC 7.1 RBC 4.96 Hgb 14.0 Hct 38.6 MCV 78 L MCH 28.1 MCHC 36.2 H RDW 13.5 Plt Count 193 Seg Neutrophils % 62.6 Sodium 136.5 L Potassium 3.7 Chloride 105 Carbon Dioxide 25 Anion Gap 7 BUN 11 Creatinine 0.84 Est GFR ( Amer) > 60 Glucose 132 H Calcium 8.6 Total Bilirubin 0.6 AST 66 H Alkaline Phosphatase 78 Total Protein 5.7 L Albumin 3.0 L Triglycerides 79 Cholesterol 126.04 LDL Cholesterol Direct 84 VLDL Cholesterol 16.0 HDL Cholesterol 40 Impressions: Head CT 05/20/19 17:19 IMPRESSION: NO ACUTE INTRACRANIAL FINDINGS. EVIDENCE OF ACUTE STROKE: NO. Pelvis X-Ray 05/20/19 19:31 IMPRESSION: No fracture. Lumbar Spine X-Ray 05/21/19 00:00 IMPRESSION: SPONDYLOSIS WITHOUT BONE LESION OR FRACTURE. Assessment & Plan - Diagnosis (1) Hyponatremia Is this a current diagnosis for this admission?: Yes (2) Recurrent falls while walking Is this a current diagnosis for this admission?: Yes (3) Bilateral hip joint arthritis Is this a current diagnosis for this admission?: Yes Plan: Continue physical therapy management (4) Chronic back pain Qualifiers: Back pain location: low back pain Is this a current diagnosis for this admission?: Yes (5) Diabetes mellitus type 2 in nonobese Is this a current diagnosis for this admission?: Yes (6) HTN (hypertension) Qualifiers: Hypertension type: essential hypertension Is this a current diagnosis for this admission?: Yes (7) HLD (hyperlipidemia) Qualifiers: Hyperlipidemia type: pure hypercholesterolemia Qualified Code(s): E78.00 - Pure hypercholesterolemia, unspecified Is this a current diagnosis for this admission?: Yes (8) GERD (gastroesophageal reflux disease) Qualifiers: Esophagitis presence: without esophagitis Qualified Code(s): K21.9 - Gastro-esophageal reflux disease without esophagitis Is this a current diagnosis for this admission?: Yes (9) Chronic alcohol abuse Is this a current diagnosis for this admission?: Yes (10) Lumbar spondylosis Is this a current diagnosis for this admission?: Yes Plan: Continue physical therapy management. - Time Time Spent with patient: 25-34 minutes Level of Care: IMCU Smoking Cessation Education: 3 to 10 minutes Medications reviewed and adjusted accordingly: Yes Anticipated discharge: Home with Homehealth Within: within 48 hours - Inpatient Certification Based on my medical assessment, after consideration of the patient's comorbidities, presenting symptoms, or acuity I expect that the services needed warrant INPATIENT care.: Yes I certify that my determination is in accordance with my understanding of Medicare's requirements for reasonable and necessary INPATIENT services [42 CFR 412.3e].: Yes Medical Necessity: Significant Comorbidiites Make Outpatient Treatment Too Risky, Need Close Monitoring Due to Risk of Patient Decompensation, Need For IV Fluids, Need For Continuous Telemetry Monitoring, Risk of Complication if Not Cared For in Hospital, Risk of Diagnosis Which Will Require Inpatient Eval/Care/Monitoring Post Hospital Care: D/C Biometrics Head Documentation - Plan Summary Plan Summary: Start on Lorazepam 0.5 mg po tid prn for anxiety and agitation. Obtain BMP in am. Continue all other current medication management.
[2019-05-23] MEDS: PANTOPRAZOLE SODIUM 40 MG TABLET.DR PO SCH (05:13)
[2019-05-23] MEDS: INSULIN LISPRO 100 UNIT/ML 3 ML VIAL SUBCUT SCH ×3 (08:42→17:59)
[2019-05-23] MEDS: ENOXAPARIN SODIUM INJ 40 MG/0.4 ML DISP.SYRIN SUBCUT SCH (09:58)
[2019-05-23] MEDS ORDERED: LOSARTAN POTASSIUM 50 MG TABLET PO SCH (12:30)
[2019-05-23] MEDS ORDERED: AMLODIPINE BESYLATE 5 MG TABLET PO SCH (12:30)
[2019-05-23] MEDS: NICOTINE 21 MG/24 HR PATCH.TD24 TD PRN (12:33)
--- NOTE | 2019-05-23 17:38 | PDOC DISCHARGE SUMMARY ---
Impression - Admit/DC Date/PCP Admission Date/Primary Care Provider: 05/20/19 21:27 NIDHI NULL Discharge Date: 05/23/19 - Discharge Diagnosis (1) Hyponatremia Is this a current diagnosis for this admission?: Yes (2) Recurrent falls while walking Is this a current diagnosis for this admission?: Yes (3) Bilateral hip joint arthritis Is this a current diagnosis for this admission?: Yes (4) Chronic back pain Is this a current diagnosis for this admission?: Yes (5) Diabetes mellitus type 2 in nonobese Is this a current diagnosis for this admission?: Yes (6) HTN (hypertension) Is this a current diagnosis for this admission?: Yes (7) HLD (hyperlipidemia) Is this a current diagnosis for this admission?: Yes (8) GERD (gastroesophageal reflux disease) Is this a current diagnosis for this admission?: Yes (9) Chronic alcohol abuse Is this a current diagnosis for this admission?: Yes (10) Lumbar spondylosis Is this a current diagnosis for this admission?: Yes - Additional Information Resuscitation Status: Full Code Discharge Diet: Cardiac, Diabetic Discharge Activity: Activity As Tolerated, Slowly Increase Activity Referrals: NIDHI NULL MD [Primary Care Provider] - 05/27/19 10:00 am Prescriptions: Lorazepam [Ativan 0.5 mg Tablet] 0.5 mg PO TIDP PRN #30 tablet PRN Reason: Sitagliptin Phos/Metformin HCl [Janumet 50-500 mg Tablet] 1 each PO BID #60 tablet Losartan Potassium 100 mg PO DAILY #30 tablet Amlodipine Besylate [Norvasc 5 mg Tablet] 5 mg PO DAILY #30 tablet Home Medications: Amlodipine Besylate [Norvasc 5 mg Tablet] 5 mg PO DAILY #30 tablet 05/23/19 Lorazepam [Ativan 0.5 mg Tablet] 0.5 mg PO TIDP PRN #30 tablet 05/23/19 Losartan Potassium 100 mg PO DAILY #30 tablet 05/23/19 Sitagliptin Phos/Metformin HCl [Janumet 50-500 mg Tablet] 1 each PO BID #60 tablet 05/23/19 History of Present Illiness History of Present Illness: DONA JULIO JR is a 74 year old male known to my practice who presented to the ED with complain of recurrent falls and generalized weakness over last co uple of days. Patient described episodes of falls as his legs gave under him. He landed on his buttocks twice and backward once with heating his head but no traumatic injuries. He denied losing his consciousness or any associated seizure activities. Patient denied recent alcohol abuse or illicit drug usage. He did admit to longstanding history of lower back pain and pain shooting down his legs. He denied any focal weakness, dizziness, vertigo, headache, nausea or vomiting. He reported satisfactory appetite and oral intake. Patient reported satisfactory home blood glucose monitoring. His initial evaluation in the ED was significant for hyponatremia and some degree of dehydration. He was advised hospitalization for further evaluation and management. His morbidities are as listed below. Hospital Course Hospital Course: Patient was treated with IV normal saline support with improvement in his hyponatremia that may be due to poor oral intake and habitual alcohol consumption.. His stay was noted for elevated blood pressure with need to restart him on his office listed anti hypertensive medication including Amlodipine 5 mg p.o daily and Losartan 100 mg p.o daily. Patient self discontinue ALL medication for unknown period of time prior to his admission to the hospital. Patient demonstrated episodes of anxiety and agitation with his request to restart his Lorazepam during this hospitalization. In view of his hyperglycemia, I will restart him on Janumet 50/500 mg p.o bid until follow up in he office. He was instructed to monitor his blood glucose and present record at his follow up office visit. he will be discharged home with [facility] [employer] [facility] services including visiting nurse, PT and PCS. he will follow up in the office as instructed upon discharge. Physical Exam Vital Signs: Temp Pulse Resp BP Pulse Ox 97.5 F 82 18 150/97 H 96 05/23/19 12:14 05/23/19 12:14 05/23/19 12:14 05/23/19 12:14 05/23/19 12:14 Intake & Output 05/22/19 05/23/19 05/24/19 06:59 06:59 06:59 Intake Total 3280 1920 480 Output Total 2250 3600 1100 Balance 1030 -1680 -620 Weight 70.3 kg 70.5 kg General appearance: PRESENT: no acute distress, well-developed, well-nourished Head exam: PRESENT: atraumatic, normocephalic Eye exam: PRESENT: conjunctiva pink. ABSENT: pallor, scleral icterus Ear exam: PRESENT: TM's normal bilaterally Mouth exam: PRESENT: moist Respiratory exam: PRESENT: clear to auscultation yahir Cardiovascular exam: PRESENT: RRR. ABSENT: diastolic murmur, rubs, systolic murmur GI/Abdominal exam: PRESENT: normal bowel sounds, soft. ABSENT: distended, guarding, mass, organomegaly, rebound, tenderness Extremities exam: ABSENT: pedal edema Musculoskeletal exam: PRESENT: normal inspection, ambulate with walker assistance Neurological exam: PRESENT: alert, awake, oriented to person, oriented to place, oriented to time, oriented to situation, CN II-XII grossly intact ABSENT: motor sensory deficit Psychiatric exam: ABSENT: agitated, anxious Skin exam: PRESENT: dry, warm Results Laboratory Results: WBC 7.1 10^3/uL (4.0-10.5) 05/22/19 05:52 RBC 4.96 10^6/uL (4.35-5.55) 05/22/19 05:52 Hgb 14.0 g/dL (13.5-17.0) 05/22/19 05:52 Hct 38.6 % (37.9-51.0) 05/22/19 05:52 MCV 78 fl (80-97) L 05/22/19 05:52 MCH 28.1 pg (27.0-33.4) 05/22/19 05:52 MCHC 36.2 g/dL (32.0-36.0) H 05/22/19 05:52 RDW 13.5 % (11.5-14.0) 05/22/19 05:52 Plt Count 193 10^3/uL (150-450) 05/22/19 05:52 Lymph % (Auto) 27.1 % (13-45) 05/22/19 05:52 [place] % (Auto) 8.3 % (3-13) 05/22/19 05:52 Eos % (Auto) 1.2 % (0-6) 05/22/19 05:52 Baso % (Auto) 0.8 % (0-2) 05/22/19 05:52 Absolute Neuts (auto) 4.4 10^3/uL (1.7-8.2) 05/22/19 05:52 Absolute Lymphs (auto) 1.9 10^3/uL (0.5-4.7) 05/22/19 05:52 Absolute Monos (auto) 0.6 10^3/uL (0.1-1.4) 05/22/19 05:52 Absolute Eos (auto) 0.1 10^3/uL (0.0-0.6) 05/22/19 05:52 Absolute Basos (auto) 0.1 10^3/uL (0.0-0.2) 05/22/19 05:52 Seg Neutrophils % 62.6 % (42-78) 05/22/19 05:52 Sodium 136.5 mmol/L (137-145) L 05/22/19 05:52 Potassium 3.7 mmol/L (3.6-5.0) 05/22/19 05:52 Chloride 105 mmol/L (98-107) 05/22/19 05:52 Carbon Dioxide 25 mmol/L (22-30) 05/22/19 05:52 Anion Gap 7 (5-19) 05/22/19 05:52 BUN 11 mg/dL (7-20) 05/22/19 05:52 Creatinine 0.84 mg/dL (0.52-1.25) 05/22/19 05:52 Est GFR ( Amer) > 60 (>60) 05/22/19 05:52 Est GFR (MDRD) Non-Af > 60 (>60) 05/22/19 05:52 Glucose 132 mg/dL (75-110) H 05/22/19 05:52 POC Glucose 169 mg/dL (70-110) H 05/23/19 12:15 Hemoglobin A1c % 7.1 % (4.7-6.0) H 05/22/19 05:52 Calcium 8.6 mg/dL (8.4-10.2) 05/22/19 05:52 Total Bilirubin 0.6 mg/dL (0.2-1.3) 05/22/19 05:52 Direct Bilirubin 0.2 mg/dL (0.0-0.4) 05/22/19 05:52 Neonat Total Bilirubin Not Reportable 05/22/19 05:52 Neonat Direct Bilirubin Not Reportable 05/22/19 05:52 Neonat Indirect Bili Not Reportable 05/22/19 05:52 AST 66 U/L (17-59) H 05/22/19 05:52 ALT 55 U/L (<50) 05/22/19 05:52 Alkaline Phosphatase 78 U/L (38-126) 05/22/19 05:52 Total Protein 5.7 g/dL (6.3-8.2) L 05/22/19 05:52 Albumin 3.0 g/dL (3.5-5.0) L 05/22/19 05:52 Triglycerides 79 mg/dL (<150) 05/22/19 05:52 Cholesterol 126.04 mg/dL (0-200) 05/22/19 05:52 LDL Cholesterol Direct 84 mg/dL (<100) 05/22/19 05:52 VLDL Cholesterol 16.0 mg/dL (-31) 05/22/19 05:52 HDL Cholesterol 40 mg/dL (>40) 05/22/19 05:52 Urine Color YELLOW 05/20/19 20:02 Urine Appearance CLEAR 05/20/19 20:02 Urine pH 6.0 (5.0-9.0) 05/20/19 20:02 Ur Specific [employer] 1.006 05/20/19 20:02 Urine Protein NEGATIVE mg/dL (NEGATIVE) 05/20/19 20:02 Urine Glucose (UA) NEGATIVE mg/dL (NEGATIVE) 05/20/19 20:02 Urine Ketones NEGATIVE mg/dL (NEGATIVE) 05/20/19 20:02 Urine Blood SMALL (NEGATIVE) H 05/20/19 20:02 Urine Nitrite (Reflex) NEGATIVE (NEGATIVE) 05/20/19 20:02 Urine Bilirubin NEGATIVE (NEGATIVE) 05/20/19 20:02 Urine Urobilinogen 2.0 mg/dL (<2.0) H 05/20/19 20:02 Leukocyte Esterase Rfl NEGATIVE (NEGATIVE) 05/20/19 20:02 Urine RBC (Auto) 1 /HPF 05/20/19 20:02 Urine Ascorbic Acid NEGATIVE (NEGATIVE) 05/20/19 20:02 Serum Alcohol < 10 mg/dL (NONE DETECTED) 05/20/19 18:10 Impressions: Head CT 05/20/19 17:19 IMPRESSION: NO ACUTE INTRACRANIAL FINDINGS. EVIDENCE OF ACUTE STROKE: NO. Pelvis X-Ray 05/20/19 19:31 IMPRESSION: No fracture. Lumbar Spine X-Ray 05/21/19 00:00 IMPRESSION: SPONDYLOSIS WITHOUT BONE LESION OR FRACTURE. Plan Health Concerns: Compliance with medication and self care remain a challenge. He refused recommendation for short term SNF placement for rehabilitation. There is high risk for readmission due to lack of community and social support. Plan of Treatment: D/C home with [facility] [employer] [facility] services. Close follow up in the office for medication review and care plan participation. Goals: Improve compliance with medication administration and participation in care plan. Time Spent: Greater than 30 Minutes - mostly spent in bedside counseling and care coordination. Stroke Is this a Stroke Patient?: No Acute Heart Failure - Is this a Heart Failure Patient?: No
[2019-05-23 20:47] VITALS: BP 151/92
== END 2019-05-23 20:34 | disposition home or self-care (01) ==
LOC: ER 17:10 → EH 21:27 → 3W 05-21 00:45
PROVIDERS: ADMIT Internal Medicine Geriatric Medicine; ATTEND Internal Medicine Geriatric Medicine
PROC: HZ31ZZZ Individual Counseling for Substance Abuse Treatment, Behavioral (ICD-10-PCS; principal; 2019-05-22)
DX: E87.1 Hypo-osmolality and hyponatremia (principal); R29.6 Repeated falls; M13.852 Other specified arthritis, left hip; M13.851 Other specified arthritis, right hip; G89.29 Other chronic pain; M54.5 Low back pain; E11.65 Type 2 diabetes mellitus with hyperglycemia; I10 Essential (primary) hypertension; K21.9 Gastro-esophageal reflux disease without esophagitis; F10.20 Alcohol dependence, uncomplicated; M47.896 Other spondylosis, lumbar region; E78.00 Pure hypercholesterolemia, unspecified; E86.0 Dehydration; F41.9 Anxiety disorder, unspecified; R45.1 Restlessness and agitation; R26.9 Unspecified abnormalities of gait and mobility; R53.1 Weakness; W19.XXXA Unspecified fall, initial encounter; Y92.009 Unspecified place in unspecified non-institutional (private) residence as the place of occurrence of the external cause; E87.6 Hypokalemia; F17.210 Nicotine dependence, cigarettes, uncomplicated; Z79.899 Other long term (current) drug therapy; Z23 Encounter for immunization; Z60.2 Problems related to living alone; Z98.890 Other specified postprocedural states
CPT/HCPCS: 93005; 99285; 36415 ×2; 82962 ×4; 80307; 85025 ×2; 80053 ×2; 81001; 83036; 80061; 72100; 72170; 70450; 90686; 93010; 97530 ×2; 97116; 97162; 99406; G0378 ×3; A9270 ×11; J1650 ×3; J7030 ×2; J3490; J1815

== ENCOUNTER 2019-06-07 22:02 | Emergency (ER) | payer MEDICARE, OTHER ==
[2019-06-07] MEDS ORDERED: ACETAMINOPHEN 325 MG TABLET PO ONE (23:30)
[2019-06-08 00:32] VITALS: BP 136/78
--- NOTE | 2019-06-08 00:54 | ER Document Report ---
ED General - General Chief Complaint: Pain All Over Stated Complaint: TOTAL BODY PAIN Time Seen by Provider: 06/07/19 22:21 Primary Care Provider: NIDHI NULL MD [Primary Care Provider] - Follow up as needed TRAVEL OUTSIDE OF THE [place] IN LAST 30 DAYS: No - HPI Notes: Patient is a 74-year-old male who presents to the emergency department for evaluation of pain. He states he has had hand and foot pain going on for several months, back pain for several years. He states he would like to have something for pain. He admits his last alcohol intake was several hours ago. He admits he has a frequent fall history. He states he thinks he is tried some [id number] medications, but he really cannot be sure. - Related Data Allergies/Adverse Reactions: No Known Allergies Allergy (Verified 05/20/19 17:16) Home Medications: janumet 50/500 bid. amlodipine 5mg daily. losartan 100 mg daily. ativan .5 mg tid prn. eye gtts for glaucoma Past Medical History - General Information source: Patient - Social History Smoking Status: Former Smoker Chew tobacco use (# tins/day): No Frequency of alcohol use: Heavy Drug Abuse: None Family History: Reviewed & Not Pertinent Patient has suicidal ideation: No Patient has homicidal ideation: No - Past Medical History Cardiac Medical History: Reports: Hx Hypercholesterolemia, Hx Hypertension Denies: Hx Heart Attack Pulmonary Medical History: Reports: Hx COPD Denies: Hx Asthma, Hx Tuberculosis Neurological Medical History: Reports: Hx Cerebrovascular Accident, Hx Seizures - 2013 D/T DIABETES Endocrine Medical History: Reports: Hx Diabetes Mellitus Type 2 Renal/ Medical History: Denies: Hx Peritoneal Dialysis GI Medical History: Reports: Hx Gastroesophageal Reflux Disease. Denies: Hx Hepatitis, Hx Hiatal Hernia, Hx Ulcer Psychiatric Medical History: Reports: Hx Depression Infectious Medical History: Denies: Hx Hepatitis Past Surgical History: Reports: Hx Orthopedic Surgery - RLE, right carpal tunnel, Hx Tonsillectomy. Denies: Hx Open Heart Surgery, Hx Pacemaker - Immunizations Hx Diphtheria, Pertussis, Tetanus Vaccination: Yes - 2010 Hx Pneumococcal Vaccination: 07/23/12 Review of Systems - Review of Systems Constitutional: No symptoms reported EENT: No symptoms reported Cardiovascular: No symptoms reported Respiratory: No symptoms reported Gastrointestinal: No symptoms reported Genitourinary: No symptoms reported Musculoskeletal: See HPI Skin: No symptoms reported Neurological/Psychological: No symptoms reported Physical Exam - Vital signs Vitals: Temp Pulse Resp BP Pulse Ox 97.8 F 72 18 138/85 H 96 06/07/19 22:09 06/07/19 22:09 06/07/19 22:09 06/07/19 22:09 06/07/19 22:09 - Notes Notes: This is a disheveled, unkempt, malodorous man who appears his stated age in no acute distress. Vital signs reviewed, please refer to chart. Head is normocephalic, atraumatic. Pupils equal round, reactive to light. Neck is supple without meningismus. Heart is regular rate and rhythm. Lungs are clear to auscultation bilaterally. Abdomen is soft, nontender, normoactive bowel sounds throughout. Extremities without cyanosis, clubbing. Posterior calves are nontender. Peripheral pulses are equal. Skin is warm and dry. Examination of the hand reveals intact sensation, no obvious deformity. He does have a superficial abrasion noted to the dorsum of the right hand that is approximately 8 cm in length. No surrounding erythema, calor, dehiscence, or induration. He has full range of motion of the wrists, thumbs, fingers at all joints. Sensation is intact, capillary refill is brisk, radial pulses 2+. Patient has very dyshidrotic skin noted on bilateral feet but no significant skin breakdown. No tenderness to light touch, sensation appears to be intact. Posterior tibial pulse 2+. Course - Re-evaluation Re-evalutation: 06/08/19 00:52 Patient presents to the emergency department for evaluation. The patient admits openly that the pain that he is having is chronic. He does not have any new's symptoms or concerns. He is already alcohol dependent and suffers from frequent falls. I do not feel comfortable giving any sort of narcotic medication to this patient. Given his alcoholism I do not feel comfortable giving him NSAIDs. He was given a small dose of Tylenol. He was walking around the department without any apparent difficulty, actually not using his cane. I explained to the patient that I did not feel comfortable giving him narcotics of any sort for at home, although he did ask for them. I explained to him that he needs to follow- up with his primary care doctor regarding this chronic issue. He voiced understanding and was discharged. - Vital Signs Vital signs: Temp Pulse Resp BP Pulse Ox 97.8 F 88 18 136/78 H 95 06/07/19 22:09 06/08/19 00:31 06/08/19 00:31 06/08/19 00:31 06/08/19 00:31 Discharge - Discharge Clinical Impression: Bilateral hand pain, Bilateral foot pain Chronic back pain Qualifiers: Back pain location: low back pain Back pain laterality: unspecified Sciatica presence: without sciatica Qualified Code(s): M54.5 - Low back pain; G89.29 - Other chronic pain Condition: Stable Disposition: HOME, SELF-CARE Instructions: Chronic Back Pain ([facility]), Chronic Pain Control ([facility]) Additional Instructions: Follow-up with your doctor next week. Tylenol as needed for severe pain. Please follow-up with your primary care provider next week and discuss her chronic pain issues with him. Return to the emergency department with worsening or new concerning symptoms of any sort. Referrals: NIDHI NULL MD [Primary Care Provider] - Follow up as needed
== END 2019-06-08 01:11 | disposition home or self-care (01) ==
LOC: ER 22:02
DX: M79.642 Pain in left hand (principal); M79.641 Pain in right hand; M79.672 Pain in left foot; M79.671 Pain in right foot; M54.5 Low back pain; G89.29 Other chronic pain; I10 Essential (primary) hypertension; E78.00 Pure hypercholesterolemia, unspecified; E11.9 Type 2 diabetes mellitus without complications; Z86.73 Personal history of transient ischemic attack (TIA), and cerebral infarction without residual deficits

== ENCOUNTER 2019-10-08 00:47 | Emergency (ER) | payer MEDICARE ==
[2019-10-08 01:50] LABS: ABSOLUTE BASOPHILS # (AUTO) 0.1 10^3/uL (0.0-0.2); ABSOLUTE EOSINOPHILS # (AUTO) 0.1 10^3/uL (0.0-0.6); ABSOLUTE MONOCYTES (AUTO) 0.9 10^3/uL (0.1-1.4); HEMATOCRIT 40.5 % (37.9-51.0); HEMOGLOBIN 14.8 g/dL (13.5-17.0); TOTAL CELLS COUNTED % (AUTO) 100 %
[2019-10-08 01:56] LABS: ABSOLUTE LYMPHOCYTES (AUTO) 2.2 10^3/uL (0.5-4.7); ABSOLUTE NEUT (AUTO) 5.4 10^3/uL (1.7-8.2); BASOPHILS % (AUTO) 0.8 % (0-2); EOSINOPHILS % (AUTO) 1.4 % (0-6); LYMPHOCYTES % (AUTO) 25.3 % (13-45); MEAN CORPUSCULAR HEMOGLOBIN 27.5 pg (27.0-33.4); MEAN CORPUSCULAR HGB CONC 36.5 g/dL (32.0-36.0); MEAN CORPUSCULAR VOLUME 75 fl (80-97); MONOCYTES % (AUTO) 10.6 % (3-13); PLATELET COUNT 256 10^3/uL (150-450); RED BLOOD COUNT 5.37 10^6/uL (4.35-5.55); RED CELL DISTRIBUTION WIDTH 13.8 % (11.5-14.0); SEGMENTED NEUTROPHILS % (AUTO) 61.9 % (42-78); WHITE BLOOD COUNT 8.7 10^3/uL (4.0-10.5)
[2019-10-08 02:16] LABS: APPEARANCE,URINE CLEAR; BILIRUBIN,URINE NEGATIVE (NEGATIVE); COLOR,URINE STRAW; GLUCOSE, URINE NEGATIVE (NEGATIVE); KETONES,URINE NEGATIVE (NEGATIVE); LEUKOCYTE ESTERASE,URINE NEGATIVE (NEGATIVE); NITRITE,URINE NEGATIVE (NEGATIVE); PROTEIN,URINE NEGATIVE (NEGATIVE); URINE SPECIFIC GRAVITY 1.004; UROBILINOGEN,URINE NEGATIVE mg/dL (<2.0)
[2019-10-08 02:17] LABS: ALKALINE PHOSPHATASE 77 U/L (38-126); ANION GAP 6 (5-19); ASPARTATE AMINO TRANSFERASE 29 U/L (17-59); BILIRUBIN,TOTAL 0.5 mg/dL (0.2-1.3); BLOOD UREA NITROGEN 11 mg/dL (7-20); CALCIUM 7.3 mg/dL (8.4-10.2); CARBON DIOXIDE 23 mmol/L (22-30); CHLORIDE 98 mmol/L (98-107); GLUCOSE 105 mg/dL (75-110); POTASSIUM 3.6 mmol/L (3.6-5.0); TOTAL PROTEIN 5.7 g/dL (6.3-8.2)
--- NOTE | 2019-10-08 03:23 | ER Document Report ---
ED General - General Chief Complaint: Nausea Stated Complaint: NAUSEA Time Seen by Provider: 10/08/19 02:12 Primary Care Provider: NIDHI NULL MD [Primary Care Provider] - Follow up as needed Mode of Arrival: Ambulatory Information source: Patient Notes: triage note coming from home, developed nausea around 1900 yesterday, denies abdominal pain 74-year-old male arrives with dizziness and occasional cough but denies any trauma fever chills hemoptysis diarrhea constipation and admits to nausea but is very hungry in fact he would like a sandwich or some other meal if possible. It appears that patient is malingering in order to be in the hospital; I am unsure of any social settings that might predispose him to feel this way. Patient has a prior history of rhabdomyolysis hyponatremia encephalopathy alcohol abuse chronic back pain diabetes and GERD TRAVEL OUTSIDE OF THE [place] IN LAST 30 DAYS: No - HPI Onset: This morning Onset/Duration: Sudden Quality of pain: No pain Severity: None Pain Level: Denies Associated symptoms: Weakness Exacerbated by: Walking Relieved by: Denies Similar symptoms previously: Yes Recently seen / treated by doctor: No - Related Data Allergies/Adverse Reactions: No Known Allergies Allergy (Verified 05/20/19 17:16) Past Medical History - General Information source: Patient - Social History Smoking Status: Never Smoker Cigarette use (# per day): No Chew tobacco use (# tins/day): No Smoking Education Provided: No Frequency of alcohol use: None Lives with: Alone Family History: Reviewed & Not Pertinent Patient has suicidal ideation: No Patient has homicidal ideation: No - Past Medical History Cardiac Medical History: Reports: Hx Hypercholesterolemia, Hx Hypertension Denies: Hx Heart Attack Pulmonary Medical History: Reports: Hx COPD Denies: Hx Asthma, Hx Tuberculosis Neurological Medical History: Reports: Hx Cerebrovascular Accident, Hx Seizures - 2013 D/T DIABETES Endocrine Medical History: Reports: Hx Diabetes Mellitus Type 2 Renal/ Medical History: Denies: Hx Peritoneal Dialysis GI Medical History: Reports: Hx Gastroesophageal Reflux Disease. Denies: Hx Hepatitis, Hx Hiatal Hernia, Hx Ulcer Psychiatric Medical History: Reports: Hx Depression Infectious Medical History: Denies: Hx Hepatitis Past Surgical History: Reports: Hx Orthopedic Surgery - RLE, right carpal tunnel, Hx Tonsillectomy. Denies: Hx Open Heart Surgery, Hx Pacemaker - Immunizations Hx Diphtheria, Pertussis, Tetanus Vaccination: Yes - 2010 Hx Pneumococcal Vaccination: 07/23/12 Physical Exam - Vital signs Vitals: Temp Pulse Resp BP Pulse Ox 97.9 F 54 L 18 143/78 H 55 L 10/08/19 01:26 10/08/19 01:26 10/08/19 01:26 10/08/19 01:26 10/08/19 01:26 Course - Vital Signs Vital signs: Temp Pulse Resp BP Pulse Ox 97.9 F 54 L 18 143/78 H 55 L 10/08/19 01:26 10/08/19 01:26 10/08/19 01:26 10/08/19 01:26 10/08/19 01:26 - Laboratory Result Diagrams: 10/08/19 01:34 10/08/19 01:34 Laboratory results interpreted by me: 10/08/19 10/08/19 01:34 01:34 MCV 75 L MCHC 36.5 H Sodium 127.2 L Calcium 7.3 L Total Protein 5.7 L Albumin 3.0 L Discharge - Discharge Clinical Impression: Anxiety, Hyponatremia Condition: Good Disposition: HOME, SELF-CARE Additional Instructions: Follow-up with personal doctor return to ER as needed take medicines as directed encourage fluids Referrals: NIDHI NULL MD [Primary Care Provider] - Follow up as needed
[2019-10-08 06:21] VITALS: BP 117/64
== END 2019-10-08 06:43 | disposition home or self-care (01) ==
LOC: ER 00:47
DX: F41.9 Anxiety disorder, unspecified (principal); E87.1 Hypo-osmolality and hyponatremia; R11.0 Nausea; R42 Dizziness and giddiness; R05 Cough; R53.1 Weakness; E11.9 Type 2 diabetes mellitus without complications; I10 Essential (primary) hypertension; J44.9 Chronic obstructive pulmonary disease, unspecified
CPT/HCPCS: 36415; 80053; 81001; 83690; 85025; 99283